=== PATIENT | female | born 1945 | race African-American/Black ===

== ENCOUNTER 2017-06-11 11:44 | Inpatient (IN) | payer MEDICARE, MEDICAID ==
[~2017-06-11] VITALS: Ht 162.6 cm; Wt 59.0 kg
[2017-06-11 12:15] VITALS: BP 110/71; PULSE 126; RESP 18; TEMP 98.6; O2SAT 95
[2017-06-11] MEDS ORDERED: PRED5TAB PO (12:31)
[2017-06-11] MEDS ORDERED: ZOFR4TAB PO (12:31)
[2017-06-11] MEDS ORDERED: FAMO1TAB37 PO (12:31)
[2017-06-11] MEDS ORDERED: PROM2INJ IM (12:31)
[2017-06-11] MEDS ORDERED: AMMO12CR4 TOP (12:31)
[2017-06-11] MEDS ORDERED: ASCO500T PO (12:31)
[2017-06-11] MEDS ORDERED: GLYC3350 PO (12:31)
[2017-06-11] MEDS ORDERED: SODIUM CHLORIDE 0.9% FLUSH 10 ML FLUSH IV FLUSH PRN ×2 (12:45→17:00)
[2017-06-11] MEDS ORDERED: SODIUM CHLOR 0.9% 1000 ML INJ 1,000 ML IV ONE (12:48)
[2017-06-11] MEDS ORDERED: SODIUM CHLOR 0.9% 1000 ML INJ 800 ML IV ONE (12:48)
[2017-06-11 14:28] VITALS: O2SAT 96
[2017-06-11 14:38] LABS: AUTOMATED NEUTROPHIL # 6.5 TH/MM3 (1.8-7.7); BASOPHIL % 0.3 % (0.0-2.0); EOSINOPHIL # 0.1 TH/MM3 (0-0.4); EOSINOPHIL % 0.9 % (0.0-4.0); HEMATOCRIT 37.2 % (35.0-46.0); HEMOGLOBIN 12.1 GM/DL (11.6-15.3); LYMPH % 6.8 % (9.0-44.0); LYMPHOCYTE # 0.5 TH/MM3 (1.0-4.8); MEAN CELL VOLUME 88.8 FL (80.0-100.0); MEAN CORPUSCULAR HEMOGLOBIN 28.8 PG (27.0-34.0); MEAN CORPUSCULAR HGB CONC 32.5 % (32.0-36.0); MEAN PLATELET VOLUME 8.7 FL (7.0-11.0); MONO % 11.5 % (0.0-8.0); MONOCYTE # 0.9 TH/MM3 (0-0.9); NEUT % 80.5 % (16.0-70.0); PLATELET COUNT 200 TH/MM3 (150-450); RED BLOOD COUNT 4.18 MIL/MM3 (4.00-5.30); RED CELL DISTRIBUTION WIDTH 16.6 % (11.6-17.2); WHITE BLOOD COUNT 8.1 TH/MM3 (4.0-11.0)
[2017-06-11 14:41] VITALS: BP 129/72; PULSE 70; RESP 16
[2017-06-11 14:47] LABS: ALBUMIN 2.7 GM/DL (3.4-5.0); AST (GOT) 34 U/L (15-37); BICARBONATE 17.3 MEQ/L (21.0-32.0); BLOOD UREA NITROGEN 94 MG/DL (7-18); CALCIUM 9.8 MG/DL (8.5-10.1); CHLORIDE 107 MEQ/L (98-107); CREATININE 6.01 MG/DL (0.50-1.00); GLOMERULAR FILTRATION RATE 8 ML/MIN (>89); GLUCOSE,RANDOM 91 MG/DL (74-106); SODIUM (NA) 137 MEQ/L (136-145)
[2017-06-11 14:50] LABS: ALKALINE PHOSPHATASE 68 U/L (45-117); ALT (GPT) 17 U/L (10-53); TOTAL BILIRUBIN ADULT 0.4 MG/DL (0.2-1.0); TOTAL PROTEIN 6.8 GM/DL (6.4-8.2); TROPONIN I 0.04 NG/ML (0.02-0.05)
--- NOTE | 2017-06-11 15:42 | PD ---
HPI Chief Complaint: GI Complaint Time Seen by Provider: 12:31 Travel History International Travel<30 days: No Contact w/Intl Traveler<30days: No Traveled to known affect area: No History of Present Illness HPI PER DAUGHTER PATIENT HAS HAD HISTORY OF DECREASED EATING AND DRINKING, APPARENTLY PER DAUGHTER PATIENT IS LESS ACTIVE, HER URINE WAS DARK YELLOW TO LIGHT BROWN AND DAUGHTER WAS CONCERNED. PFSH Past Medical History Anemia: Yes Arthritis: Yes (RA) High Cholesterol: Yes Hypertension: Yes Medical other: Yes (VITAMIN D DEF, UTIS, BREAST CA, CDIFF, ESBL RESISTANCE, GEN WEAKNESS) Tetanus Vaccination: Unknown Influenza Vaccination: No ?: Unknown Past Surgical History Other Surgery: Yes (LEFT MASTECTOMY) Social History Alcohol Use: No Tobacco Use: No Substance Use: No Allergies-Medications (Allergen,Severity, Reaction): Coded Allergies: iodine (Verified Allergy, Severe, 06/11/17) Reported Meds & Prescriptions Reported Meds & Active Scripts Active Reported Phenergan Inj (Promethazine HCl) 25 Mg/Ml Inj 25 Mg IM Q6H PRN Prednisone 5 Mg Tab 5 Mg PO DAILY Zofran (Ondansetron HCl) 4 Mg Tab 4 Mg PO Q8HR PRN Glycolax (Polyethylene Glycol 3350) 17 Gram/Dose Pow 17 Gm PO DAILY Pepcid (Famotidine) 20 Mg Tab 20 Mg PO BID Ascorbic Acid 500 Mg Tab 500 Mg PO DAILY Ammonium Lactate (Lactic Acid) 12 % Cre 1 Applic TOP BID APPLY TO: Review of Systems Except as stated in HPI: all other systems reviewed are Neg General / Constitutional: No: Fever Eyes: No: Visual changes HENT: No: Headaches Cardiovascular: Positive: Palpitations, Tachycardia (HYPOTENSIVE) Respiratory: No: Shortness of Breath Gastrointestinal: Positive: Nausea Genitourinary: No: Dysuria Musculoskeletal: No: Pain Skin: No Rash Neurologic: No: Weakness Psychiatric: No: Depression Endocrine: No: Polydipsia Hematologic/Lymphatic: No: Easy Bruising Physical Exam Narrative GENERAL: SKIN: Warm and dry. SKIN TENTING HEAD: Atraumatic. Normocephalic. EYES: Pupils equal and round. No scleral icterus. No injection or drainage. ENT: No nasal bleeding or discharge. Mucous membranes pink BUT DRY AND COTTON MOUTH NECK: Trachea midline. No JVD. CARDIOVASCULAR: TACHYCARDIC rate and REGULAR rhythm. RESPIRATORY: No accessory muscle use. Clear to auscultation. Breath sounds equal bilaterally. GASTROINTESTINAL: Abdomen soft, non-tender, nondistended. MUSCULOSKELETAL: Extremities without clubbing, cyanosis, or edema. No obvious deformities. NEUROLOGICAL: Awake and alert. No obvious cranial nerve deficits. Motor grossly within normal limits. 4 out of 5 muscle strength in the RIGHT arms and legs. EXCEPT LEFT SIDE CONTRACTED PSYCHIATRIC: Appropriate mood and affect; insight and judgment normal. Data Data Last Documented VS Vital Signs Date Time Temp Pulse Resp B/P (MAP) Pulse Ox O2 Delivery O2 Flow Rate FiO2 06/11/17 14:41 70 16 129/72 (91) Room Air 06/11/17 14:28 96 06/11/17 12:15 98.6 Orders Orders Equip, Isolation Cart (06/11/17 12:29) Complete Blood Count With Diff (06/11/17 12:31) Comprehensive Metabolic Panel (06/11/17 12:31) Lipase (06/11/17 12:31) Lactic Acid (06/11/17 12:31) Prothrombin Time / Inr (Pt) (06/11/17 12:31) Act Partial Throm Time (Ptt) (06/11/17 12:31) Urinalysis - C+S If Indicated (06/11/17 12:31) Iv Access Insert/Monitor (06/11/17 12:31) Ecg Monitoring (06/11/17 12:31) Oximetry (06/11/17 12:31) NPO (06/11/17 12:31) Sodium Chloride 0.9% Flush (Ns Flush) (06/11/17 12:45) Electrocardiogram (06/11/17 12:31) Troponin I (06/11/17 12:31) Blood Culture (06/11/17 12:31) Sodium Chlor 0.9% 1000 Ml Inj (Ns 1000 M (06/11/17 12:48) Sodium Chlor 0.9% 1000 Ml Inj (Ns 1000 M (06/11/17 12:48) Admit To Inpatient (06/11/17 ) Vital Signs (Adult) Q4H (06/11/17 16:47) Activity Oob With Assistance (06/11/17 16:47) Sodium Chlor 0.9% 1000 Ml Inj (Ns 1000 M (06/11/17 16:47) Sodium Chloride 0.9% Flush (Ns Flush) (06/11/17 17:00) Sodium Chloride 0.9% Flush (Ns Flush) (06/11/17 21:00) Basic Metabolic Panel (Bmp) (06/12/17 06:00) Comprehensive Metabolic Panel (06/12/17 06:00) Pt Request For Service (06/11/17 16:47) Speech Therapy Consult-Eval/Tx (06/11/17 16:47) Case Management Consult (06/11/17 16:47) Naloxone Inj (Narcan Inj) (06/11/17 17:00) Magnesium Hydroxide Liq (Milk Of Magnesi (06/11/17 17:00) Sennosides (Senokot) (06/11/17 17:00) Bisacodyl Supp (Dulcolax Supp) (06/11/17 17:00) Lactulose Liq (Lactulose Liq) (06/11/17 17:00) Sodium, Random Urine (06/11/17 16:47) Creatinine, Random Urine (06/11/17 16:47) Specimen To Be Collected PRN (06/11/17 16:47) Us Kidney/Renal/Bladder (06/11/17 ) Bladder Scan PRN (06/11/17 16:47) Inpatient Certification (06/11/17 ) Consult Nephrology (06/11/17 ) Labs Laboratory Tests Test 06/11/17 14:10 White Blood Count 8.1 TH/MM3 Red Blood Count 4.18 MIL/MM3 Hemoglobin 12.1 GM/DL Hematocrit 37.2 % Mean Corpuscular Volume 88.8 FL Mean Corpuscular Hemoglobin 28.8 PG Mean Corpuscular Hemoglobin Concent 32.5 % Red Cell Distribution Width 16.6 % Platelet Count 200 TH/MM3 Mean Platelet Volume 8.7 FL Neutrophils (%) (Auto) 80.5 % Lymphocytes (%) (Auto) 6.8 % Monocytes (%) (Auto) 11.5 % Eosinophils (%) (Auto) 0.9 % Basophils (%) (Auto) 0.3 % Neutrophils # (Auto) 6.5 TH/MM3 Lymphocytes # (Auto) 0.5 TH/MM3 Monocytes # (Auto) 0.9 TH/MM3 Eosinophils # (Auto) 0.1 TH/MM3 Basophils # (Auto) 0.0 TH/MM3 CBC Comment AUTO DIFF Differential Comment AUTO DIFF CONFIRMED Platelet Estimate NORMAL Platelet Morphology Comment NORMAL Ovalocytes 1+ Blood Urea Nitrogen 94 MG/DL Creatinine 6.01 MG/DL Random Glucose 91 MG/DL Total Protein 6.8 GM/DL Albumin 2.7 GM/DL Calcium Level 9.8 MG/DL Alkaline Phosphatase 68 U/L Aspartate Amino Transf (AST/SGOT) 34 U/L Alanine Aminotransferase (ALT/SGPT) 17 U/L Total Bilirubin 0.4 MG/DL Sodium Level 137 MEQ/L Potassium Level 5.0 MEQ/L Chloride Level 107 MEQ/L Carbon Dioxide Level 17.3 MEQ/L Anion Gap 13 MEQ/L Estimat Glomerular Filtration Rate 8 ML/MIN Lactic Acid Level 1.3 mmol/L Troponin I 0.04 NG/ML Lipase 152 U/L 25-Hydroxy Vitamin D Total 37.3 ng/ML MDM Medical Decision Making Medical Screen Exam Complete: Yes Emergency Medical Condition: Yes Medical Record Reviewed: Yes Differential Diagnosis SEPSIS V UTI V PNA V DEHYDRATION Narrative Course no e/o sbo/ileus/or bibasilar infiltrates on abd series, acute worsening of renal function, also e/o dehydration...and hypokalemia....pt will be admitted for further eval and care Critical Care Narrative CRITICAL CARE NOTE: With evaluation of the patient, labs, EKG, receipt of radiologic studies, administration of medications, reevaluation the patient and discussion of the patient with the admitting physicians, the total critical care time was [45] minutes. Time to perform other separately billable procedures was not included in the critical care time. Diagnosis Primary Impression: ACUTE ON CHRONIC KIDNEY DISEASE Additional Impression: Dehydration, severe Jeet Sheehan MD Jun 11, 2017 15:42
[2017-06-11 15:44] LABS: OVALOCYTES 1+ (NORMAL)
[2017-06-11] MEDS ORDERED: SODIUM CHLOR 0.9% 1000 ML INJ 1,000 ML IV SCH (16:47)
[2017-06-11] MEDS ORDERED: MAGNESIUM HYDROXIDE SUSP 30 ML CUP PO PRN (17:00)
[2017-06-11] MEDS ORDERED: BISACODYL 10 MG SUPP RECTAL PRN (17:00)
[2017-06-11] MEDS ORDERED: HYDROCORTISONE SOD SUCCINATE 100 MG VIAL IV PUSH ONE (17:00)
[2017-06-11] MEDS ORDERED: SENNOSIDES 8.6 MG TAB PO PRN (17:00)
[2017-06-11] MEDS ORDERED: NALOXONE HCL 0.4 MG/ML AMP IV PUSH PRN (17:00)
[2017-06-11] MEDS ORDERED: LACTULOSE SYRUP 20 GM/30 ML CUP PO PRN (17:00)
--- NOTE | 2017-06-11 17:39 | RADRPT ---
EXAM DATE/TIME: 06/11/2017 17:12 [facility] COMPARISON: No previous studies available for comparison. INDICATIONS : Nausea. MEDICAL HISTORY : Hypercholesterolemia. Hypertension Carcinoma, breast. SURGICAL HISTORY : Mastectomy, left. ENCOUNTER: Initial ACUITY: 3 days PAIN SCORE: 0/10 LOCATION: Bilateral abdomen FINDINGS: A single erect view of the abdomen demonstrates limited visualization with no obvious obstruction or pneumoperitoneum. Osseous structures are grossly intact. Lung bases are clear CONCLUSION: Limited examination with no obvious obstruction or pneumoperitoneum. Lung bases are clear. Eduardo Rosas MD on June 11, 2017 at 17:36 Board Certified Radiologist. This report was verified electronically.
[2017-06-11] MEDS: CHOLECALCIFEROL (VIT D3) 5000 UNIT CAP PO ONE ×2 (18:00→19:38)
[2017-06-11] MEDS ORDERED: ONDANSETRON HCL 4 MG/2 ML VIAL IV PUSH PRN (18:00)
--- NOTE | 2017-06-11 18:05 | PD.CONS ---
HPI Consult Requested By Reason for Consult Acute renal failure. Chronic kidney disease? Primary Care Physician Stefano Gaona MD History of Present Illness This patient is a 72-year-old female apparently with a history of severe chronic rheumatoid arthritis, hypertension and osteoarthritis. According to the family she has been chronic debilitated in the past but able to get around in a wheelchair. Debilitation related to severe chronic rheumatoid arthritis. More recently a few months ago it appears that she was started on Xeljanz prior to Thanksgiving subsequently developed diarrhea, abnormal liver tests and according to the family renal insufficiency. She was subsequently admitted to [facility] and diagnosis having clostridium difficile. Those records are not available to me currently. She was subsequently discharged to a alf and more recently there has been a recurrence of diarrhea as well as nausea and vomiting. Records from the alf indicated a creatinine level of 3.0 with a BUN of 36 June 03, 2017. Outpatient medications prior to admission included prednisone 5 mg daily but no indication that she was on an NSAID for analgesia. According to the family they noted that her urine was turning dark brown and they had her brought to the hospital for further evaluation. On presentation her creatinine level noted to be 6.01 with a total CO2 on BMP of 17.3. Patient's family also gives a history of poor appetite with progressive weight loss these last several weeks. It appears that she was started on an appetite stimulant which may have been out all but this cannot be confirmed presently. They also mentioned that she has a "sore" on her buttock. Review of Systems ROS Limitations: Clinical Condition Constitutional: COMPLAINS OF: Fatigue, Weight loss Musculoskeletal: COMPLAINS OF: Joint pain, Stiffness, Back pain Past Family Social History Allergies: Coded Allergies: iodine (Verified Allergy, Severe, 06/11/17) Past Medical History Severe rheumatoid arthritis Hypertension Chronic debilitation worsening recently. Weight loss. Mention of renal insufficiency in the last few weeks confirmed by creatinine level more recently 3.0 June 03, 2017. Reported Medications Reported Meds & Active Scripts Active Reported Phenergan Inj (Promethazine HCl) 25 Mg/Ml Inj 25 Mg IM Q6H PRN Prednisone 5 Mg Tab 5 Mg PO DAILY Zofran (Ondansetron HCl) 4 Mg Tab 4 Mg PO Q8HR PRN Glycolax (Polyethylene Glycol 3350) 17 Gram/Dose Pow 17 Gm PO DAILY Pepcid (Famotidine) 20 Mg Tab 20 Mg PO BID Ascorbic Acid 500 Mg Tab 500 Mg PO DAILY Ammonium Lactate (Lactic Acid) 12 % Cre 1 Applic TOP BID APPLY TO: Active Ordered Medications Current Medications Sodium Chloride (NS Flush) 2 ml UNSCH PRN IV FLUSH FLUSH AFTER USING IV ACCESS ; Start 06/11/17 at 12:45 Sodium Chloride 1,000 ml @ 1,000 mls/hr Q1H ONCE IV Last administered on at 14:37; Start 06/11/17 at 12:48; Stop 06/11/17 at 13:47; Status DC Sodium Chloride 800 ml @ 1,000 mls/hr Q48M ONCE IV Last administered on at 14:38; Start 06/11/17 at 12:48; Stop 06/11/17 at 13:35; Status DC Sodium Chloride 1,000 ml @ 100 mls/hr Q10H IV ; Start 06/11/17 at 16:47; Stop 06/11/17 at 17:45; Status DC Sodium Chloride (NS Flush) 2 ml UNSCH PRN IV FLUSH FLUSH AFTER USING IV ACCESS ; Start 06/11/17 at 17:00 Sodium Chloride (NS Flush) 2 ml BID IV FLUSH ; Start 06/11/17 at 21:00 Naloxone HCl (Narcan Inj) 0.4 mg UNSCH PRN IV PUSH SEE LABEL COMMENTS; Start at 17:00 Magnesium Hydroxide (Milk Of Magnesia Liq) 30 ml Q12H PRN PO Mild constipation ; Start 06/11/17 at 17:00 Sennosides (Senokot) 17.2 mg Q12H PRN PO Moderate constipation; Start 06/11/17 at 17:00 Bisacodyl (Dulcolax Supp) 10 mg DAILY PRN RECTAL SEVERE CONSITIPATION; Start at 17:00 Lactulose (Lactulose Liq) 30 ml DAILY PRN PO SEVERE CONSITIPATION; Start at 17:00 Hydrocortisone Sodium Succinate (SoluCORTEF INJ) 50 mg ONCE ONCE IV PUSH ; Start 06/11/17 at 17:00; Stop 06/11/17 at 17:02; Status DC Prednisone (Deltasone) 10 mg DAILY PO ; Start 06/12/17 at 09:00 Sodium Bicarbonate 75 meq/Sodium Chloride 1,075 ml @ 100 mls/hr [id number] IV ; Start 06/11/17 at 17:45; Status UNV Family History Hypertension. Social History No history of illicit drug use. Physical Exam Vital Signs Vital Signs Date Time Temp Pulse Resp B/P (MAP) Pulse Ox O2 Delivery O2 Flow Rate FiO2 06/11/17 14:41 70 16 129/72 (91) Room Air 06/11/17 14:28 96 Room Air 06/11/17 12:15 98.6 126 18 110/71 (84) 95 Physical Exam GENERAL: Patient appears to be somewhat emaciated and older than her stated age with evidence of muscular wastage all limbs.: Ulnar deviation of the fingers. SKIN: Warm and dry. Skin turgor is diminished. HEAD: Normocephalic. Mucous membranes dry. EYES: No scleral icterus. No injection or drainage. NECK: Supple, trachea midline. No JVD . CARDIOVASCULAR: Regular rate and rhythm without murmurs, gallops, or rubs. RESPIRATORY: Breath sounds equal bilaterally. No accessory muscle use. GASTROINTESTINAL: Abdomen soft, non-tender, nondistended. MUSCULOSKELETAL: No cyanosis, or edema. Diffuse muscular wastage. Laboratory Laboratory Tests Test 06/11/17 14:10 White Blood Count 8.1 Red Blood Count 4.18 Hemoglobin 12.1 Hematocrit 37.2 Mean Corpuscular Volume 88.8 Mean Corpuscular Hemoglobin 28.8 Mean Corpuscular Hemoglobin Concent 32.5 Red Cell Distribution Width 16.6 Platelet Count 200 Mean Platelet Volume 8.7 Neutrophils (%) (Auto) 80.5 Lymphocytes (%) (Auto) 6.8 Monocytes (%) (Auto) 11.5 Eosinophils (%) (Auto) 0.9 Basophils (%) (Auto) 0.3 Neutrophils # (Auto) 6.5 Lymphocytes # (Auto) 0.5 Monocytes # (Auto) 0.9 Eosinophils # (Auto) 0.1 Basophils # (Auto) 0.0 CBC Comment AUTO DIFF Differential Comment AUTO DIFF CONFIRMED Platelet Estimate NORMAL Platelet Morphology Comment NORMAL Ovalocytes 1+ Blood Urea Nitrogen 94 Creatinine 6.01 Random Glucose 91 Total Protein 6.8 Albumin 2.7 Calcium Level 9.8 Alkaline Phosphatase 68 Aspartate Amino Transf (AST/SGOT) 34 Alanine Aminotransferase (ALT/SGPT) 17 Total Bilirubin 0.4 Sodium Level 137 Potassium Level 5.0 Chloride Level 107 Carbon Dioxide Level 17.3 Anion Gap 13 Estimat Glomerular Filtration Rate 8 Lactic Acid Level 1.3 Troponin I 0.04 Lipase 152 Date/Time Source Procedure Growth Status 06/11/17 14:10 Blood Peripheral Aerobic Blood Culture Pending Received 06/11/17 14:10 Blood Peripheral Anaerobic Blood Culture Pending Received Result Diagram: 06/11/17 1410 06/11/17 1410 Imaging Last 48 hours Impressions Abdomen X-Ray 06/11/17 0000 Signed Impressions: Service Date/Time: Sunday, June 11, 2017 17:12 - CONCLUSION: Limited examination with no obvious obstruction or pneumoperitoneum. Lung bases are clear. Eduardo Rosas MD Assessment and Plan Problem List: (1) Acute kidney insufficiency ICD Codes: N28.9 - Disorder of kidney and ureter, unspecified Status: Acute Plan: Most likely secondary to intravascular volume depletion and possible superimposed sepsis. Except for the creatinine level noted on June 03, 2017 I have no previous laboratory indices available so uncertain if this patient could have underlying CKD also despite a negative history. Agree with hydration at this point in time. We'll add sodium bicarbonate to IV fluids as she does appear to have some degree of metabolic acidosis most likely related to her severe renal insufficiency. The may also be a contraction alkalosis and with hydration her bicarbonate level would likely fall further. Agree with renal ultrasound. Also check serum complement levels. Urinalysis. Further evaluation as indicated. I discussed with the patient's daughters to severity of their mother is renal insufficiency and overall condition. Remains be determined whether not patient' s renal function will improve with hydration as her azotemia may worsen if she has developed a significant ATN. I also advised them that if there is no improvement in the renal indices and or worsening we may have to consider dialytic support in the next 24-48 hours. Hopefully there will be improvement however. Patient has evidence of significant chronic debilitation with superimposed acute disease. Prognosis is guarded. Medications should be adjusted for the patient's estimated GFR if clinically indicated. Avoid agents with significant potential for nephrotoxicity possible including NSAIDs for analgesia, iodine contrast agents. Gadolinium is contraindicated if the GFR is below 30. 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 (4) Rheumatoid arthritis ICD Codes: M06.9 - Rheumatoid arthritis, unspecified Status: Chronic Carmelo Yuan MD Jun 11, 2017 18:05
--- NOTE | 2017-06-11 18:18 | HHI.HP ---
[facility] Stefano Gaona MD Admission Diagnosis ACUTE RENAL FAILURE/SEVERE DEHYDRATION Diagnoses: Chief Complaint: Nausea, vomiting, decreased appetite Travel History International Travel<30 Days: No Contact w/Intl Traveler <30 Da: No Traveled to Known Affected Are: No History of Present Illness 72-year-old female with history of her heart arthritis, hypertension, who presents with gradually worsening nausea, nonbloody vomiting over the past few weeks. Unspecified weight loss over the past few weeks, with progression of weakness to where she cannot even stand up. Family also notes that urine has become dark swelling. She has been tried on what sounds to be Marinol without improvement in appetite. Recently completed treatment for C. difficile diarrhea which resolved, however no bowel movements in the past 2 weeks. Review of Systems Patient unable to answer most questions due to weakness Past Family Social History Past Medical History Chronic rheumatoid arthritis Chronic dilatation C. difficile colitis successfully treated Vitamin D deficiency recently diagnosed on outside labs History of UTIs in the past. History of chronic anemia Past Surgical History left mastectomy without radiation or chemotherapy Reported Medications Reported Meds & Active Scripts Active Reported Phenergan Inj (Promethazine HCl) 25 Mg/Ml Inj 25 Mg IM Q6H PRN Prednisone 5 Mg Tab 5 Mg PO DAILY Zofran (Ondansetron HCl) 4 Mg Tab 4 Mg PO Q8HR PRN Glycolax (Polyethylene Glycol 3350) 17 Gram/Dose Pow 17 Gm PO DAILY Pepcid (Famotidine) 20 Mg Tab 20 Mg PO BID Ascorbic Acid 500 Mg Tab 500 Mg PO DAILY Ammonium Lactate (Lactic Acid) 12 % Cre 1 Applic TOP BID Allergies: Coded Allergies: iodine (Verified Allergy, Severe, 06/11/17) Family History family history reviewed, and found to be currently noncontributory. Social History Nonsmoker. Nondrinker. No history of illicit drug use. Physical Exam Vital Signs Vital Signs Date Time Temp Pulse Resp B/P (MAP) Pulse Ox O2 Delivery O2 Flow Rate FiO2 06/11/17 14:41 70 16 129/72 (91) Room Air 06/11/17 14:28 96 Room Air 06/11/17 12:15 98.6 126 18 110/71 (84) 95 Physical Exam GENERAL: Cachectic female who appears greater than stated age. Voice is very soft, almost imperceptible. She answers that she is not in pain SKIN: No rashes, ecchymoses or lesions. Cool and dry. HEAD: Atraumatic. Normocephalic. No temporal or scalp tenderness. EYES: Pupils equal round and reactive. Extraocular motions intact. No scleral icterus. No injection or drainage. ENT: Nose without bleeding, purulent drainage or septal hematoma. Throat without erythema, tonsillar hypertrophy or exudate. Uvula midline. Airway patent. NECK: Trachea midline. No JVD or lymphadenopathy. Supple, nontender, no meningeal signs. CARDIOVASCULAR: Regular rate and rhythm without murmurs, gallops, or rubs. RESPIRATORY: Clear to auscultation. Breath sounds equal bilaterally. No wheezes , rales, or rhonchi. GASTROINTESTINAL: Abdomen soft, non-tender, nondistended. No hepato-splenomegaly , or palpable masses. No guarding. MUSCULOSKELETAL: Extremities without clubbing, cyanosis, or edema. No joint tenderness, effusion, or edema noted. No calf tenderness. Negative Homans sign bilaterally. NEUROLOGICAL: Awake and alert. Cranial nerves II through XII intact. Motor and sensory grossly within normal limits. 3 out of 5 muscle strength in right extremities, with weakness on the left side. Normal speech. Laboratory Laboratory Tests Test 06/11/17 14:10 White Blood Count 8.1 Red Blood Count 4.18 Hemoglobin 12.1 Hematocrit 37.2 Mean Corpuscular Volume 88.8 Mean Corpuscular Hemoglobin 28.8 Mean Corpuscular Hemoglobin Concent 32.5 Red Cell Distribution Width 16.6 Platelet Count 200 Mean Platelet Volume 8.7 Neutrophils (%) (Auto) 80.5 Lymphocytes (%) (Auto) 6.8 Monocytes (%) (Auto) 11.5 Eosinophils (%) (Auto) 0.9 Basophils (%) (Auto) 0.3 Neutrophils # (Auto) 6.5 Lymphocytes # (Auto) 0.5 Monocytes # (Auto) 0.9 Eosinophils # (Auto) 0.1 Basophils # (Auto) 0.0 CBC Comment AUTO DIFF Differential Comment AUTO DIFF CONFIRMED Platelet Estimate NORMAL Platelet Morphology Comment NORMAL Ovalocytes 1+ Blood Urea Nitrogen 94 Creatinine 6.01 Random Glucose 91 Total Protein 6.8 Albumin 2.7 Calcium Level 9.8 Alkaline Phosphatase 68 Aspartate Amino Transf (AST/SGOT) 34 Alanine Aminotransferase (ALT/SGPT) 17 Total Bilirubin 0.4 Sodium Level 137 Potassium Level 5.0 Chloride Level 107 Carbon Dioxide Level 17.3 Anion Gap 13 Estimat Glomerular Filtration Rate 8 Lactic Acid Level 1.3 Troponin I 0.04 Lipase 152 Date/Time Source Procedure Growth Status 06/11/17 14:10 Blood Peripheral Aerobic Blood Culture Pending Received 06/11/17 14:10 Blood Peripheral Anaerobic Blood Culture Pending Received Result Diagram: 06/11/17 1410 06/11/17 1410 Caprini VTE Risk Assessment Caprini VTE Risk Assessment: Mod/High Risk (score >= 2) Caprini Risk Assessment Model Point Value = 1 Point Value = 2 Point Value = 3 Point Value = 5 Age 41-60 Minor surgery BMI > 25 kg/m2 Swollen legs Varicose veins or History of unexplained or recurrent spontaneous Oral contraceptives or hormone replacement Sepsis (< 1 month) Serious lung disease, including pneumonia (< 1 month) Abnormal pulmonary function Acute myocardial infarction Congestive heart failure (< 1 month) History of inflammatory bowel disease Medical patient at bed rest Age 61-74 Arthroscopic surgery Major open surgery (> 45 min) Laparoscopic surgery (> 45 min) Malignancy Confined to bed (> 72 hours) Immobilizing plaster cast Central venous access Age >= 75 History of VTE Family history of VTE Factor V Leiden Prothrombin [id number] Lupus anticoagulant Anticardiolipin antibodies Elevated serum homocysteine Heparin-induced thrombocytopenia Other congenital or acquired thrombophilia Stroke (< 1 month) Elective arthroplasty Hip, pelvis, or leg fracture Acute spinal cord injury (< 1 month) Prophylaxis Regimen Total Risk Factor Score Risk Level Prophylaxis Regimen 0-1 Low Early ambulation 2 Moderate Order ONE of the following: *Sequential Compression Device (SCD) *Heparin 5000 units SQ BID 3-4 Higher Order ONE of the following medications: *Heparin 5000 units SQ TID *Enoxaparin/Lovenox 40 mg SQ daily (WT < 150 kg, CrCl > 30 mL/min) *Enoxaparin/Lovenox 30 mg SQ daily (WT < 150 kg, CrCl > 10-29 mL/min) *Enoxaparin/Lovenox 30 mg SQ BID (WT < 150 kg, CrCl > 30 mL/min) AND/OR *Sequential Compression Device (SCD) 5 or more Highest Order ONE of the following medications: *Heparin 5000 units SQ TID (Preferred with Epidurals) *Enoxaparin/Lovenox 40 mg SQ daily (WT < 150 kg, CrCl > 30 mL/min) *Enoxaparin/Lovenox 30 mg SQ daily (WT < 150 kg, CrCl > 10-29 mL/min) *Enoxaparin/Lovenox 30 mg SQ BID (WT < 150 kg, CrCl > 30 mL/min) AND *Sequential Compression Device (SCD) Assessment and Plan Assessment and Plan //Acute kidney injury //Uremia -Creatinine 6.0. Previously 3.0 on 06/03. Sleep worsening, likely secondary to decreased by mouth intake. -Renal ultrasound, labs ordered and pending. -Aggressive IV fluid //Nausea and vomiting. -This could be secondary to uremia. No sign of constipation on AP abdominal film. No abdominal pain. -Zofran as needed. Expect to Improve with uremia. //Dehydration //Failure to thrive. -Multifactorial. Could be secondary to uremia, as well as adrenal insufficiency. -Aggressive IV fluid hydration. Treatment for acute kidney injury below. //Left-sided contractures. Family deny any history of stroke, however report contractors have been there since she arrived to [facility]. -limited OSH records do not mention stroke. We'll order CT head //Sacral ulcer. -stage II. Consult wound care nurse. //Recent C. difficile colitis. = Having completed treatment -Family reports no bowel movements for the past 2 weeks. Abdomen nontender. -C. difficile ordered and pending //Suspected adrenal insufficiency. -Milligrams of adrenal insufficiency would be nausea, vomiting, abdominal pain. Patient with nausea, vomiting, no abdominal pain. -Patient on chronic prednisone 5 mg daily. -We'll order stress dose steroids here. //Vitamin D deficiency. 1, 25 dihydroxy vitamin D on 06/03 and found to be undetectable at outside facility. We'll order labs for 25 drugs she vitamin D, and start on vitamin D3. Expect nephrology to start on calcitriol. Discussed Condition With Patient, nurse, ED physician, family at bedside Physician Certification 2 Midnight Certification Type: Admission for Inpatient Services Order for Inpatient Services The services are ordered in accordance with Medicare regulations or non- Medicare payer requirements, as applicable. In the case of services not specified as inpatient-only, they are appropriately provided as inpatient services in accordance with the 2-midnight benchmark. Estimated LOS (days): 3 days is the estimated time the patient will need to remain in the hospital, assuming treatment plan goals are met and no additional complications. Post-Hospital Plan: Not yet determined Stefano Rojas MD Jun 11, 2017 18:18
--- NOTE | 2017-06-11 18:48 | RADRPT ---
EXAM DATE/TIME: 06/11/2017 17:30 [facility] COMPARISON: No previous studies available for comparison. INDICATIONS : Increased BUN/Creatnine. MEDICAL HISTORY : Hypercholesterolemia. Hypertension. Carcinoma, breast. Arthritis. Anemia. Urinary tract infection. C- Diff. SURGICAL HISTORY : Mastectomy, left. ENCOUNTER: Initial ACUITY: 1 month PAIN SCORE: 5/10 LOCATION: Bilateral flank MEASUREMENTS: RIGHT KIDNEY: 9.5 x 3.2 x 3.7 cm LEFT KIDNEY: 9.5 x 2.9 x 4.5 cm FINDINGS: Small renal calcifications and increased echogenicity. No hydronephrosis. No perinephric fluid. Bladd er unremarkable. CONCLUSION: 1. Mild echogenic kidneys characteristic of medical renal disease. Small renal calcifications. Delonte Gonzalez MD on June 11, 2017 at 18:44 Board Certified Radiologist. This report was verified electronically.
[2017-06-11 19:40] LABS: AMORPHOUS SEDIMENT, URINE RARE; BACTERIA, URINE RARE /hpf; BILIRUBIN, URINE SMALL (NEG); BLOOD, URINE NEG (NEG); GLUCOSE,URINE NEG (NEG); HYALINE CAST, URINE 4 /lpf (RARE); KETONE, URINE NEG (NEG); NITRITE,URINE NEG (NEG); URINE LEUKOCYTE ESTERASE NEG (NEG)
[2017-06-11 19:41] LABS: URINE COLOR AMBER (YELLW/STRAW)
[2017-06-11 20:00] VITALS: BP 115/57; PULSE 117; RESP 20; TEMP 97.7; O2SAT 99
[2017-06-11] MEDS: SODIUM CHLORIDE 0.9% FLUSH 10 ML FLUSH IV FLUSH SCH (21:00)
--- NOTE | 2017-06-11 21:11 | RADRPT ---
EXAM DATE/TIME: 06/11/2017 20:44 [facility] COMPARISON: No previous studies available for comparison. INDICATIONS : Numbness. RADIATION DOSE: 45.55 CTDIvol (mGy) MEDICAL HISTORY : Hypertension. Carcinoma, breast. SURGICAL HISTORY : None. ENCOUNTER: Initial ACUITY: 1 day PAIN SCALE: 0/10 LOCATION: cranial TECHNIQUE: Multiple contiguous axial images were obtained of the head. Using automated exposure control and adj ustment of the mA and/or kV according to patient size, radiation dose was kept as low as reasonably a chievable to obtain optimal diagnostic quality images. DICOM format image data is available electro nically for review and comparison. FINDINGS: CEREBRUM: The ventricles are normal for age. No evidence of midline shift, mass lesion, hemorrhage or acute in farction. No extra-axial fluid collections are seen. POSTERIOR FOSSA: The cerebellum and brainstem are intact. The 4th ventricle is midline. The cerebellopontine angle i s unremarkable. EXTRACRANIAL: The visualized portion of the orbits is intact. SKULL: The calvaria is intact. No evidence of skull fracture. CONCLUSION: 1. No acute intracranial abnormalities. Delonte Gonzalez MD on June 11, 2017 at 21:06 Board Certified Radiologist. This report was verified electronically.
[2017-06-11] MEDS: SODIUM BICARBONATE 8.4% INJ 75 MEQ in SODIUM CHLOR 0.45% 1000 ML INJ 1,000 ML IV SCH (21:38)
[2017-06-11] MEDS: HEPARIN SODIUM - SQ 10,000 UNITS/ML VIAL SQ SCH (21:39)
[2017-06-11 22:43] LABS: INTERNATIONAL NORMALIZED RATIO 1.1 RATIO; PROTHROMBIN TIME - PATIENT 11.6 SEC (9.8-11.6)
[2017-06-11 23:09] LABS: CREATININE, RANDOM URINE 180.6 MG/DL
[2017-06-12 00:12] VITALS: BP 107/65; PULSE 112; RESP 20; TEMP 98.8; O2SAT 99
[2017-06-12] MEDS: SODIUM BICARBONATE 8.4% INJ 75 MEQ in SODIUM CHLOR 0.45% 1000 ML INJ 1,000 ML IV SCH (04:30)
[2017-06-12 08:00] VITALS: BP 116/76; PULSE 109; RESP 17; TEMP 97.3; O2SAT 92
[2017-06-12] MEDS: predniSONE 10 MG TAB PO SCH (08:10)
[2017-06-12] MEDS: CHOLECALCIFEROL (VIT D3) 5000 UNIT CAP PO SCH (08:10)
[2017-06-12] MEDS: SODIUM CHLORIDE 0.9% FLUSH 10 ML FLUSH IV FLUSH SCH ×2 (08:11→19:46)
[2017-06-12] MEDS: HEPARIN SODIUM - SQ 10,000 UNITS/ML VIAL SQ SCH ×2 (08:11→19:47)
[2017-06-12 09:52] LABS: ALKALINE PHOSPHATASE 49 U/L (45-117); ALT (GPT) 12 U/L (10-53); AST (GOT) 22 U/L (15-37); BICARBONATE 18.6 MEQ/L (21.0-32.0); BLOOD UREA NITROGEN 72 MG/DL (7-18); CHLORIDE 114 MEQ/L (98-107); CREATININE 3.71 MG/DL (0.50-1.00); GLOMERULAR FILTRATION RATE 15 ML/MIN (>89); GLUCOSE,RANDOM 56 MG/DL (74-106); SODIUM (NA) 146 MEQ/L (136-145); TOTAL BILIRUBIN ADULT 0.3 MG/DL (0.2-1.0)
[2017-06-12 10:02] LABS: COMPLEMENT C3 66 MG/DL (90-180); COMPLEMENT C4 25 MG/DL (10-40)
--- NOTE | 2017-06-12 11:21 | HHI.NPPN ---
Subjective History of Present Illness This patient is a 72-year-old female apparently with a history of severe chronic rheumatoid arthritis, hypertension and osteoarthritis. According to the family she has been chronic debilitated in the past but able to get around in a wheelchair. Debilitation related to severe chronic rheumatoid arthritis. More recently a few months ago it appears that she was started on Xeljanz prior to Thanksgiving subsequently developed diarrhea, abnormal liver tests and according to the family renal insufficiency. She was subsequently admitted to [facility] and diagnosis having clostridium difficile. Those records are not available to me currently. She was subsequently discharged to a retirement and more recently there has been a recurrence of diarrhea as well as nausea and vomiting. Records from the retirement indicated a creatinine level of 3.0 with a BUN of 36 June 03, 2017. Outpatient medications prior to admission included prednisone 5 mg daily but no indication that she was on an NSAID for analgesia. According to the family they noted that her urine was turning dark brown and they had her brought to the hospital for further evaluation. On presentation her creatinine level noted to be 6.01 with a total CO2 on BMP of 17.3. Patient's family also gives a history of poor appetite with progressive weight loss these last several weeks. It appears that she was started on an appetite stimulant which may have been out all but this cannot be confirmed presently. They also mentioned that she has a "sore" on her buttock. Interval History No family present. Opens eyes, but makes no meaningful conversation. (Marichuy Jorge) Review of Systems General General Remarks Unable to obtain (Marichuy Jorge) Objective Data Data Vital Signs Date Time Temp Pulse Resp B/P (MAP) Pulse Ox O2 Delivery O2 Flow Rate FiO2 06/12/17 08:00 97.3 109 17 116/76 (89) 92 06/12/17 00:12 98.8 112 20 107/65 (79) 99 06/11/17 20:00 97.7 117 20 115/57 (76) 99 06/11/17 14:41 70 16 129/72 (91) Room Air 06/11/17 14:28 96 Room Air 06/11/17 12:15 98.6 126 18 110/71 (84) 95 (Marichuy Jorge) -: 06/11/17 1410 06/12/17 0655 Microbiology 06/11/17 Aerobic Blood Culture - Preliminary, Resulted NO GROWTH IN 1 DAY 06/11/17 Anaerobic Blood Culture - Preliminary, Resulted NO GROWTH IN 1 DAY 06/11/17 Aerobic Blood Culture - Preliminary, Resulted NO GROWTH IN 1 DAY 06/11/17 Anaerobic Blood Culture - Preliminary, Resulted NO GROWTH IN 1 DAY Imaging Last Impressions Renal Ultrasound 06/11/17 0000 Signed Impressions: Service Date/Time: Sunday, June 11, 2017 17:30 - CONCLUSION: 1. Mild echogenic kidneys characteristic of medical renal disease. Small renal calcifications. Delonte Gonzalez MD Head CT 06/11/17 0000 Signed Impressions: Service Date/Time: Sunday, June 11, 2017 20:44 - CONCLUSION: 1. No acute intracranial abnormalities. Delonte Gonzalez MD Abdomen X-Ray 06/11/17 0000 Signed Impressions: Service Date/Time: Sunday, June 11, 2017 17:12 - CONCLUSION: Limited examination with no obvious obstruction or pneumoperitoneum. Lung bases are clear. Eduardo Rosas MD Medication Review Current Medications Medications (Trade) Dose Ordered Sig/Melinda Route Start Time Stop Time Status Last Admin (NS Flush) 2 ml UNSCH PRN IV FLUSH 06/11/17 12:45 (NS Flush) 2 ml UNSCH PRN IV FLUSH 06/11/17 17:00 (NS Flush) 2 ml BID IV FLUSH 06/11/17 21:00 06/11/17 21:00 (Narcan Inj) 0.4 mg UNSCH PRN IV PUSH 06/11/17 17:00 (Milk Of Magnesia Liq) 30 ml Q12H PRN PO 06/11/17 17:00 (Senokot) 17.2 mg Q12H PRN PO 06/11/17 17:00 (Dulcolax Supp) 10 mg DAILY PRN RECTAL 06/11/17 17:00 (Lactulose Liq) 30 ml DAILY PRN PO 06/11/17 17:00 (Deltasone) 10 mg DAILY PO 06/12/17 09:00 06/12/17 08:10 Sodium Bicarbonate 75 meq/Sodium Chloride 1,075 ml @ 100 mls/hr [id number] IV 06/11/17 17:45 06/11/17 21:38 (Vitamin D3) 5,000 units DAILY PO 06/12/17 09:00 06/12/17 08:10 (Zofran Inj) 4 mg Q6HR PRN IV PUSH 06/11/17 18:00 (Heparin Inj) 5,000 units Q12HR SQ 06/11/17 21:00 06/12/17 08:11 (Marichuy Jorge) Physical Exam General Appearance: Sleeping, Malnourished (Marichuy Jorge) Neck Neck Exam: Neck Supple, Trachea Midline (Marichuy Jorge) Pulmonary Resp Exam: Clear Bilaterally, Breath Sounds Equal (Marichuy Jorge) Cardiology CV Exam: Regular, Normal Sinus Rhythm (Marichuy Jorge) Gastrointestinal/Abdomen GI Exam: Soft (Marichuy Jorge) Integumentary Skin Exam: Warm (Marichuy Jorge) Extremeties Extremities Exam: No Edema (Marichuy Jorge) Neurologic Neuro Exam: Obtunded (Marichuy Jorge) Assessment/Plan Problem List: (1) Acute kidney insufficiency ICD Codes: N28.9 - Disorder of kidney and ureter, unspecified Status: Acute Plan: Most likely secondary to intravascular volume depletion and possible superimposed sepsis. Except for the creatinine level noted on June 03, 2017 I have no previous laboratory indices available so uncertain if this patient could have underlying CKD also despite a negative history. Renal functions improving overnight Continue IVF. Change to D5 bicarb given hypernatremia. Quite lethargic so doubtful she will be able to sustain adequate po intake at the present Renal US showed small echogenic kidneys, but no obstruction C3 low. Check FABIOLA with titers Patient has evidence of significant chronic debilitation with superimposed acute disease. Prognosis is guarded. Medications should be adjusted for the patient's estimated GFR if clinically indicated. Avoid agents with significant potential for nephrotoxicity possible including NSAIDs for analgesia, iodine contrast agents. Gadolinium is contraindicated if the GFR is below 30. 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 (4) Rheumatoid arthritis ICD Codes: M06.9 - Rheumatoid arthritis, unspecified Status: Chronic (Jorge,Marichuy Janet PA) Plan The exam, history, and the medical decision-making described in the above note were completed with the assistance of the PA-C. I reviewed and agree with the findings presented. (Carmelo Yuan MD) Marichuy Jorge Jun 12, 2017 11:21 Carmelo Yuan MD Jun 12, 2017 16:49
[2017-06-12 12:00] VITALS: BP 96/50; PULSE 106; RESP 18; TEMP 99.6; O2SAT 92
[2017-06-12] MEDS: SODIUM BICARBONATE 8.4% INJ 75 MEQ in DEXT 5%-NACL 0.45% 1000 ML INJ 1,000 ML IV SCH ×2 (12:04→22:16)
--- NOTE | 2017-06-12 13:48 | EKG ---
Date Performed: 06/11/2017 Time Performed: 14:09:20 PTAGE: 72 years EKG: SINUS TACHYCARDIA WITH SHORT [place] INTERVAL NONSPECIFIC T-WAVE ABNORMALITY ABNORMAL RHYTHM ECG NO PREVIOUS TRACING DOCTOR: Aren Herrmann Interpretating Date/Time 06/12/2017 13:43:58
[2017-06-12 16:00] VITALS: BP 93/56; PULSE 103; RESP 18; TEMP 99.3; O2SAT 92
--- NOTE | 2017-06-12 16:18 | HHI.PR ---
Subjective Remarks Patient complains of stomach pain. Poor by mouth intake has existed with inadequate intake causing weight loss and malnutrition. Patient was dehydrated at time of admit and is responding well to IV hydration. Objective Vital Signs Date Time Temp Pulse Resp B/P (MAP) Pulse Ox O2 Delivery O2 Flow Rate FiO2 06/12/17 12:00 99.6 106 18 96/50 (65) 92 06/12/17 08:00 97.3 109 17 116/76 (89) 92 06/12/17 00:12 98.8 112 20 107/65 (79) 99 06/11/17 20:00 97.7 117 20 115/57 (76) 99 I/O 06/11/17 06/11/17 06/11/17 06/12/17 06/12/17 06/12/17 07:00 15:00 23:00 07:00 15:00 23:00 Intake Total 684 ml 941 ml Output Total 100 ml 500 ml Balance 584 ml 441 ml Intake Oral 240 ml IV Total 684 ml 701 ml Output Urine Total 100 ml 500 ml # Bowel Movements 1 Result Diagram: 06/11/17 1410 06/12/17 0655 A/P Problem List: (1) Malnutrition ICD Code: E46 - Unspecified protein-calorie malnutrition (2) Metabolic acidosis ICD Code: E87.2 - Acidosis Status: Acute (3) Acute kidney insufficiency ICD Code: N28.9 - Disorder of kidney and ureter, unspecified Status: Acute (4) 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 Dehydration Acute kidney injury Continue to monitor renal function GI following Continue IV hydration Renal ultrasound suggest possible underlying medical kidney disease Nausea and vomiting Uremia Improved Continue Zofran as needed Failure to thrive Malnutrition Speech therapy evaluation needed and patient cleared for pured and thin liquids Consult dietitian for Calorie count Consider consider TPN or discussion with family in regards to feeding tube based on results of calorie count IV hydration for now, with dextrose Encourage patient to take by mouth intake of food Left-sided contractures Physical therapy and occupational therapy No evidence of CVA on CT of brain Stage II sacral ulcer Wound care nurse consulted Follow clinically Recent C. difficile colitis No diarrhea Follow clinically Chronic steroid dependence Stress dosing steroids continued Suspect underlying adrenal insufficiency without steroids Vitamin D deficiency Continue vitamin D supplementation as tolerated DVT prophylaxis SCD Walter Barbosa MD Jun 12, 2017 16:18
[2017-06-12 20:00] VITALS: BP 111/61; PULSE 108; RESP 16; TEMP 98.7; O2SAT 95
[2017-06-13 00:15] VITALS: BP 105/62; PULSE 103; RESP 16; TEMP 97.3; O2SAT 100
[2017-06-13 08:00] VITALS: BP 103/66; PULSE 98; RESP 20; TEMP 99.3; O2SAT 99
[2017-06-13] MEDS: SODIUM CHLORIDE 0.9% FLUSH 10 ML FLUSH IV FLUSH SCH ×2 (09:00→21:00)
[2017-06-13 09:20] LABS: AUTOMATED NEUTROPHIL # 4.7 TH/MM3 (1.8-7.7); BASOPHIL % 0.4 % (0.0-2.0); EOSINOPHIL % 0.6 % (0.0-4.0); HEMATOCRIT 28.6 % (35.0-46.0); HEMOGLOBIN 9.4 GM/DL (11.6-15.3); LYMPH % 8.2 % (9.0-44.0); LYMPHOCYTE # 0.5 TH/MM3 (1.0-4.8); MEAN CELL VOLUME 87.7 FL (80.0-100.0); MEAN CORPUSCULAR HEMOGLOBIN 28.9 PG (27.0-34.0); MEAN CORPUSCULAR HGB CONC 32.9 % (32.0-36.0); MEAN PLATELET VOLUME 8.8 FL (7.0-11.0); MONO % 10.2 % (0.0-8.0); MONOCYTE # 0.6 TH/MM3 (0-0.9); NEUT % 80.6 % (16.0-70.0); PLATELET COUNT 130 TH/MM3 (150-450); RED BLOOD COUNT 3.25 MIL/MM3 (4.00-5.30); RED CELL DISTRIBUTION WIDTH 16.5 % (11.6-17.2); WHITE BLOOD COUNT 5.8 TH/MM3 (4.0-11.0)
[2017-06-13 09:48] LABS: ALBUMIN 1.9 GM/DL (3.4-5.0); ALKALINE PHOSPHATASE 44 U/L (45-117); ALT (GPT) 11 U/L (10-53); AST (GOT) 24 U/L (15-37); BICARBONATE 29.8 MEQ/L (21.0-32.0); BLOOD UREA NITROGEN 53 MG/DL (7-18); CALCIUM 8.6 MG/DL (8.5-10.1); CHLORIDE 112 MEQ/L (98-107); GLOMERULAR FILTRATION RATE 30 ML/MIN (>89); GLUCOSE,RANDOM 98 MG/DL (74-106); SODIUM (NA) 150 MEQ/L (136-145); TOTAL BILIRUBIN ADULT 0.2 MG/DL (0.2-1.0); TOTAL PROTEIN 4.6 GM/DL (6.4-8.2)
[2017-06-13 10:02] LABS: BANDS 6 % (0-6); LYMPHOCYTES 10 % (9-44); MONOCYTES 7 % (0-8); MYELOCYTES 1 % (0-0); NEUTROPHIL # MANUAL DIFF 4.8 TH/MM3 (1.8-7.7); POLYS (SEG NEUTROPHILS) 76 % (16-70)
[2017-06-13 10:03] LABS: OVALOCYTES 1+ (NORMAL)
[2017-06-13] MEDS: SODIUM BICARBONATE 8.4% INJ 75 MEQ in DEXT 5%-NACL 0.45% 1000 ML INJ 1,000 ML IV SCH (10:45)
[2017-06-13] MEDS: CHOLECALCIFEROL (VIT D3) 5000 UNIT CAP PO SCH (10:46)
[2017-06-13] MEDS: predniSONE 10 MG TAB PO SCH (10:46)
[2017-06-13] MEDS: HEPARIN SODIUM - SQ 10,000 UNITS/ML VIAL SQ SCH ×2 (10:46→22:55)
[2017-06-13] MEDS ORDERED: POTASSIUM CHLOR 20 MEQ PREMIX 100 ML IV ONE (11:15)
[2017-06-13 12:00] VITALS: BP 93/52; PULSE 95; RESP 19; TEMP 99.2; O2SAT 98
[2017-06-13] MEDS ORDERED: SODIUM CHLOR 0.9% 1000 ML INJ 250 ML IV SCH (12:45)
[2017-06-13] MEDS: CARBIDOPA/LEVODOPA 25 MG/100 MG TAB PO SCH ×2 (15:19→15:27)
[2017-06-13 16:00] VITALS: BP 108/62; PULSE 102; RESP 20; TEMP 98.4; O2SAT 98
[2017-06-13] MEDS: DEXTROSE 5% IN WATE 1000ML INJ 1,000 ML IV SCH ×2 (17:45→18:37)
--- NOTE | 2017-06-13 17:47 | HHI.NPPN ---
Subjective History of Present Illness This patient is a 72-year-old female apparently with a history of severe chronic rheumatoid arthritis, hypertension and osteoarthritis. According to the family she has been chronic debilitated in the past but able to get around in a wheelchair. Debilitation related to severe chronic rheumatoid arthritis. More recently a few months ago it appears that she was started on Xeljanz prior to Thanksgiving subsequently developed diarrhea, abnormal liver tests and according to the family renal insufficiency. She was subsequently admitted to [facility] and diagnosis having clostridium difficile. Those records are not available to me currently. She was subsequently discharged to a care home and more recently there has been a recurrence of diarrhea as well as nausea and vomiting. Records from the care home indicated a creatinine level of 3.0 with a BUN of 36 June 03, 2017. Outpatient medications prior to admission included prednisone 5 mg daily but no indication that she was on an NSAID for analgesia. According to the family they noted that her urine was turning dark brown and they had her brought to the hospital for further evaluation. On presentation her creatinine level noted to be 6.01 with a total CO2 on BMP of 17.3. Patient's family also gives a history of poor appetite with progressive weight loss these last several weeks. It appears that she was started on an appetite stimulant which may have been out all but this cannot be confirmed presently. They also mentioned that she has a "sore" on her buttock. Review of Systems General General Remarks Unable to obtain Objective Data Data 06/13/17 06/14/17 19:00 07:00 Intake Total 50 ml Output Total 750 ml Balance -700 ml Intake Oral 50 ml Output Urine Total 750 ml Vital Signs Date Time Temp Pulse Resp B/P (MAP) Pulse Ox O2 Delivery O2 Flow Rate FiO2 06/13/17 16:00 98.4 102 20 108/62 (77) 98 06/13/17 12:00 99.2 95 19 93/52 (66) 98 06/13/17 08:00 99.3 98 20 103/66 (78) 99 06/13/17 00:15 97.3 103 16 105/62 (76) 100 06/12/17 20:00 98.7 108 16 111/61 (78) 95 -: 06/13/17 0700 06/13/17 0700 Physical Exam General Appearance: Sleeping, Malnourished Neck Neck Exam: Neck Supple, Trachea Midline Pulmonary Resp Exam: Clear Bilaterally, Breath Sounds Equal Cardiology CV Exam: Regular, Normal Sinus Rhythm Gastrointestinal/Abdomen GI Exam: Soft Integumentary Skin Exam: Warm Extremeties Extremities Exam: No Edema Neurologic Neuro Exam: Obtunded Assessment/Plan Problem List: (1) Acute kidney insufficiency ICD Codes: N28.9 - Disorder of kidney and ureter, unspecified Status: Acute Plan: Secondary to intravascular volume depletion . Patient is much more alert. Creatinine level much improved and metabolic acidosis has resolved. Converted fluids to D5W in view of persisting hypernatremia. Will defer to primary care physician in regard to options that may be required for the patient to maintain an adequate enteral intake post discharge. Patient will be seen when necessary at this point in time. Please call with any questions. .Patient has evidence of significant chronic debilitation with superimposed acute disease. Prognosis is guarded long-term. Medications should be adjusted for the patient's estimated GFR if clinically indicated. Avoid agents with significant potential for nephrotoxicity possible including NSAIDs for analgesia, iodine contrast agents. Gadolinium is contraindicated if the GFR is below 30. (2) CKD (chronic kidney disease) stage 3, GFR 30-59 ml/min ICD Codes: N18.3 - Chronic kidney disease, stage 3 (moderate) Status: Chronic Plan: Suspected given the elevated creatinine level prior to presentation and echogenic kidneys seen on ultrasound. Baseline creatinine level probably below 2.0. 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 (5) Rheumatoid arthritis ICD Codes: M06.9 - Rheumatoid arthritis, unspecified Status: Chronic Carmelo Yuan MD Jun 13, 2017 17:47
--- NOTE | 2017-06-13 17:57 | HHI.PR ---
Subjective Remarks Patient is a poor historian due to minimal verbal response. She has answers, but she has a low voice and is weakened Objective Vitals Vital Signs Date Time Temp Pulse Resp B/P (MAP) Pulse Ox O2 Delivery O2 Flow Rate FiO2 06/13/17 16:00 98.4 102 20 108/62 (77) 98 06/13/17 12:00 99.2 95 19 93/52 (66) 98 06/13/17 08:00 99.3 98 20 103/66 (78) 99 06/13/17 00:15 97.3 103 16 105/62 (76) 100 06/12/17 20:00 98.7 108 16 111/61 (78) 95 I/O 06/12/17 06/12/17 06/12/17 06/13/17 06/13/17 06/13/17 07:00 15:00 23:00 07:00 15:00 23:00 Intake Total 684 ml 941 ml 849 ml 767 ml 50 ml Output Total 100 ml 500 ml 225 ml 750 ml Balance 584 ml 441 ml 849 ml 542 ml 50 ml -750 ml Intake Oral 240 ml 75 ml 0 ml 50 ml IV Total 684 ml 701 ml 774 ml 767 ml Output Urine Total 100 ml 500 ml 225 ml 750 ml # Bowel Movements 1 Result Diagram: 06/13/17 0700 06/13/17 0700 Objective Remarks GENERAL: Thin patient, generally weak SKIN: Warm and dry. HEAD: Normocephalic. EYES: No scleral icterus. No injection or drainage. NECK: Supple, trachea midline. No JVD or lymphadenopathy. CARDIOVASCULAR: Regular rate and rhythm without murmurs, gallops, or rubs. RESPIRATORY: Breath sounds equal bilaterally. No accessory muscle use. GASTROINTESTINAL: Abdomen soft, non-tender, nondistended. NEURO: stone face, low voice, one word answers, subtle cogwheeling of right arm BACK: Nontender without obvious deformity. No CVA tenderness. EXTREMITIES: no edema A/P Assessment and Plan Dehydration Acute kidney injury Continue IV hydration, follow BMP Renal ultrasound suggest possible underlying medical kidney disease Dysphagia Combined with all symptoms and exam, evidence seems to point to possible Parkinsons Disease Will consult neurology to assist with work up Meanwhile, begin on starting dose of Sinemet to see if symptoms improve. Failure to thrive Malnutrition Speech therapy evaluation needed and patient cleared for pured and thin liquids Consult dietitian for Calorie count TPN is an option, but will need family discussion first IV hydration with dextrose Left-sided contractures Physical therapy and occupational therapy No evidence of CVA on CT of brain Stage II sacral ulcer Wound care nurse consulted Follow clinically Recent C. difficile colitis Asymptomatic, formed stools Chronic steroid dependence Possible underlying adrenal insufficiency without steroids, stress dosing ordered No clinical improvement so far Vitamin D deficiency Continue vitamin D supplementation as tolerated DVT prophylaxis SCD Poncho Barbosa MD Jun 13, 2017 17:56
--- NOTE | 2017-06-13 18:22 | MB ---
cc: DAVID DANIELS M.D. DATE OF CONSULTATION 06/13/2017 REASON FOR CONSULTATION She is a 72-year-old woman seen in neurological consultation in regards to Parkinsonism. HISTORY OF THE PRESENT ILLNESS She is in the hospital since June 11 when she was admitted because of malnutrition. PAST MEDICAL HISTORY The medical history includes: 1. Generalized weakness. 2. Breast cancer. 3. Severe urinary tract infection. She is a [facility] resident. unfortunately I could not get any additional information on this patient and I called the number listed for her daughter which is [phone] and there was no answer. The patient apparently has a history of rheumatoid arthritis as well. She is having some renal insufficiency. PHYSICAL EXAMINATION GENERAL: The exam shows the patient to be malnourished, awake, anxious, repeatedly asking for help as she wanted to be moved from side to side all the time. She asked me to help . I obtained some paper towel and gave it to her and she could not really handle it. She has contracture of her hands from rheumatoid arthritis and some generalized weakness and debilitation. I needed to bring the paper towel to her mouth and she was able to spit up her secretions. She is evidently having difficulty handling secretions. Her speech was fairly clear. She knew her age but thought she was in a [facility]. She had no insight on the date and could not discuss her medical problems at all. She is very frail with some quadriparesis, her reflexes were absent throughout, plantar responses were none versus flexor. She perceives stimulation in all four extremities grossly equally. She has some mild to moderate decreased facial expression. No tremor noted. ASSESSMENT 1. Parkinsonism. 2. Dementia. 3. Rheumatoid arthritis. It is unclear as to the cause of her neurologic status. 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 It could be f Parkinson's dementia. She also could even have motor neuron disorder. I did not see fasciculations. She has diminished reflexes which is against motor neuron disorder but not ruling this out. Unfortunately I was unable to get anymore information on her. At this point she needs medical and supportive care as currently being given. She needs aggressive nutritional care. Trial with levodopa / carbidopa was started which is 25 / 100 mg every 12 hours. In a day or two we could upgrade this to every 4 hours starting 07:00 a.m. and continuing with doses at 11:00 a.m., 03:00 p.m. and 07:00 p.m. Other than that neurological followup as outpatient with the assistance of family members. I should mention the CT brain showed no acute abnormality. I reviewed the laboratory data. CBC a couple of days ago with white count 8.1, hemoglobin was 12.1 and today is 9.4. Platelets is 130 today. Sodium was 150 today. Potassium 2.7. BUN 53. Creatinine 2.0. I will order a B12 level on her. Will also check a CPK. Thank you for asking us to assist in her care. David Daniels MD OF[facility]/KK /5:41 PM /5:57 PM
[2017-06-13 20:00] VITALS: BP 112/71; PULSE 102; RESP 20; TEMP 97.2; O2SAT 100
[2017-06-13 20:57] LABS: AUTOMATED NEUTROPHIL # 8.2 TH/MM3 (1.8-7.7); BASOPHIL % 0.3 % (0.0-2.0); EOSINOPHIL % 0.1 % (0.0-4.0); HEMOGLOBIN 10.1 GM/DL (11.6-15.3); LYMPH % 4.7 % (9.0-44.0); LYMPHOCYTE # 0.4 TH/MM3 (1.0-4.8); MEAN CELL VOLUME 87.8 FL (80.0-100.0); MEAN CORPUSCULAR HEMOGLOBIN 28.6 PG (27.0-34.0); MEAN CORPUSCULAR HGB CONC 32.6 % (32.0-36.0); MEAN PLATELET VOLUME 9.3 FL (7.0-11.0); MONO % 5.6 % (0.0-8.0); MONOCYTE # 0.5 TH/MM3 (0-0.9); NEUT % 89.3 % (16.0-70.0); PLATELET COUNT 169 TH/MM3 (150-450); RED BLOOD COUNT 3.52 MIL/MM3 (4.00-5.30); RED CELL DISTRIBUTION WIDTH 16.5 % (11.6-17.2); WHITE BLOOD COUNT 9.1 TH/MM3 (4.0-11.0)
[2017-06-13 21:49] LABS: BICARBONATE 30.5 MEQ/L (21.0-32.0); CALCIUM 8.8 MG/DL (8.5-10.1); CREATININE 1.64 MG/DL (0.50-1.00)
[2017-06-14 00:26] VITALS: BP 113/66; PULSE 99; RESP 20; TEMP 96.6; O2SAT 100
[2017-06-14 04:31] LABS: BACTERIA, URINE MANY /hpf; BILIRUBIN, URINE NEG (NEG); BLOOD, URINE TRACE (NEG); GLUCOSE,URINE NEG (NEG); HYALINE CAST, URINE 51 /lpf (RARE); KETONE, URINE NEG (NEG); MUCUS URINE FEW /lpf (OCC); NITRITE,URINE POS (NEG); PH, URINE 8.5 (5.0-8.5); SQUAMOUS EPITHELIAL CELL URINE 1 /hpf (0-5); TRIPLE PHOSPHATE CRYSTAL,URINE MANY /hpf; URINE COLOR YELLOW (YELLW/STRAW); URINE LEUKOCYTE ESTERASE LARGE (NEG); WAXY CAST, URINE 13 /lpf; WHITE BLOOD CELL CLUMPS MANY
[2017-06-14 08:00] VITALS: BP 94/53; PULSE 107; RESP 18; TEMP 98.9; O2SAT 97
[2017-06-14] MEDS: SODIUM CHLORIDE 0.9% FLUSH 10 ML FLUSH IV FLUSH SCH ×2 (09:00→20:27)
[2017-06-14 09:35] LABS: BICARBONATE 27.7 MEQ/L (21.0-32.0); CREATININE 1.51 MG/DL (0.50-1.00); MAGNESIUM 1.5 MG/DL (1.5-2.5)
[2017-06-14] MEDS: CHOLECALCIFEROL (VIT D3) 5000 UNIT CAP PO SCH (09:49)
[2017-06-14] MEDS: HEPARIN SODIUM - SQ 10,000 UNITS/ML VIAL SQ SCH ×2 (09:49→20:31)
[2017-06-14] MEDS: predniSONE 10 MG TAB PO SCH (09:49)
[2017-06-14] MEDS: CARBIDOPA/LEVODOPA 25 MG/100 MG TAB PO SCH ×2 (09:49→20:28)
[2017-06-14 10:39] LABS: RPR SCREEN FOR REFLEX NON-REACTIVE (NON-REACTVE)
[2017-06-14] MEDS: NS + KCL 20 MEQ INJ 1,000 ML IV SCH (11:49)
[2017-06-14] MEDS: ACETAMINOPHEN 325 MG TAB PO PRN ×2 (11:50→16:06)
[2017-06-14 12:00] VITALS: BP 100/62; PULSE 92; RESP 18; TEMP 98; O2SAT 97
[2017-06-14 16:00] VITALS: BP 103/73; PULSE 91; RESP 19; TEMP 98.5; O2SAT 98
--- NOTE | 2017-06-14 17:00 | PD.WCN.NOT ---
Wound Consult Description: Received consult for wound management of sacral area from Doctor Bob Communicated with: LAURE burch and Doctor Poncho Barbosa Recommendation: 1.Please cleanse wound to sacrum with normal saline or wound cleanser and pat dry. Apply small amount of hydrogel on wound bed only and cover with 2x2 gauze .Apply Calazime barrier cream to periwound and moisture related partial thickness skin loss Secure with ABD pad and medfix tape.Apply skin prep to intact skin before applying tape to skin.Change dressing daily or PRN if saturated or dislodged. 2.Insert Dignisheild for frequent loose stools. 3. Turn patient every 2 hours and PRN for comfort and offloading of pressure from mague prominences 4. Please use ultrasorb pads only for incontinence management. 5. Vocera wound care nurse for wound deterioration. Additional Information: Patient seen on for sacral wound management.Patient assessed with the assistance of Sugar burch and freelance writer. Patient was turned to R side with maximum assistance of LAURE Wooten and freelance writer. to reveal stage 3 pressure injury to sacral area with mixed etiology of moisture, pressure and friction. Wound measures 2.8cm x 2cm x 0.3cm. Wound bed presents with ~20% pink tissue, ~ 40% red non-granulation tissue and ~20% adipose tissue. Periwound is noted with scattered small areas or diffuse partial thickness skin loss that was moisture related. Wound has no active drainage and a dry wound bed without foul odor.Patient also noted laying in a large amount of foul smelling liquid brown stool. Patient was cleansed with soap, and water on soft cloths, rinsed and patted dry. Soiled incontinence pads were removed and replaced with two staggered ultrasorb pads. Obtained physician order to insert Dignisheild for loose stools. Calazime barrier cream was applied to periwound partial thickness skin loss and denuded skin. Pea sized amount of hydrogel was applied to wound bed only and covered with 2x2 gauze pad. Secured dressing with ABD pad and paper tape. Skin prep was applied before tape was applied to skin.Patient tolerated dressing change fairly with some complaints of pain with turning and repositioning. Sydney Persaud [facility] Jun 14, 2017 17:00
[2017-06-14 20:00] VITALS: BP 99/62; PULSE 85; RESP 14; TEMP 97.8; O2SAT 96
--- NOTE | 2017-06-14 21:44 | HHI.PR ---
Subjective Remarks Patient is alert, oriented, moving better, expression in her face, and normalized speech. She has rheumatoid arthritis and some associated pain. Objective Vitals Vital Signs Date Time Temp Pulse Resp B/P (MAP) Pulse Ox O2 Delivery O2 Flow Rate FiO2 06/14/17 16:00 98.5 91 19 103/73 (83) 98 06/14/17 12:00 98.0 92 18 100/62 (75) 97 06/14/17 08:00 98.9 107 18 94/53 (67) 97 06/14/17 00:26 96.6 99 20 113/66 (82) 100 I/O 06/13/17 06/13/17 06/13/17 06/14/17 06/14/17 06/14/17 07:00 15:00 23:00 07:00 15:00 23:00 Intake Total 767 ml 50 ml 500 ml 840 ml 248 ml 125 ml Output Total 225 ml 1600 ml 600 ml 250 ml Balance 542 ml 50 ml -1100 ml 240 ml 248 ml -125 ml Intake Oral 0 ml 50 ml 120 ml 240 ml 125 ml IV Total 767 ml 380 ml 600 ml 248 ml Output Urine Total 225 ml 1600 ml 600 ml 250 ml # Bowel Movements 1 1 Result Diagram: 06/13/17201206/14/17821 Objective Remarks GENERAL: Thin patient, generally weak, but much more mobile and responsive after starting Sinemet SKIN: Warm and dry. HEAD: Normocephalic. EYES: No scleral icterus. No injection or drainage. NECK: Supple, trachea midline. No JVD or lymphadenopathy. CARDIOVASCULAR: Regular rate and rhythm without murmurs, gallops, or rubs. RESPIRATORY: Breath sounds equal bilaterally. No accessory muscle use. GASTROINTESTINAL: Abdomen soft, non-tender, nondistended. NEURO: parkinson's symptoms remarkably improved following Sinemet doses BACK: Nontender without obvious deformity. No CVA tenderness. EXTREMITIES: no edema A/P Assessment and Plan Dehydration Acute kidney injury Renal function improving daily with IVF rehydration Dysphagia Combined with all symptoms and exam, evidence seems to point to possible Parkinsons Disease Drastically improved following 2 doses of Sinemet Appreciate Neurology consultation Failure to thrive Malnutrition Drastic improvement following Sinemet Reevaluation of swallow function tomorrow Left-sided contractures Physical therapy and occupational therapy No evidence of CVA on CT of brain Stage II sacral ulcer Wound care nurse consulted Follow clinically Recent C. difficile colitis Asymptomatic, formed stools Vitamin D deficiency Continue vitamin D supplementation as tolerated DVT prophylaxis SCD Poncho Barbosa MD Jun 14, 2017 21:43
[2017-06-15] VITALS: BP 99/65; PULSE 86; RESP 14; TEMP 97.9; O2SAT 97
[2017-06-15] MEDS: DEXTROSE 5% IN WATE 1000ML INJ 1,000 ML IV SCH ×2 (00:02→19:45)
[2017-06-15 08:00] VITALS: BP 130/82; PULSE 96; RESP 18; TEMP 95.4; O2SAT 99
[2017-06-15] MEDS: SODIUM CHLORIDE 0.9% FLUSH 10 ML FLUSH IV FLUSH SCH ×2 (09:00→21:00)
[2017-06-15] MEDS: predniSONE 10 MG TAB PO SCH (09:14)
[2017-06-15] MEDS: CHOLECALCIFEROL (VIT D3) 5000 UNIT CAP PO SCH (09:14)
[2017-06-15] MEDS: CARBIDOPA/LEVODOPA 25 MG/100 MG TAB PO SCH ×2 (09:14→22:56)
[2017-06-15] MEDS: HEPARIN SODIUM - SQ 10,000 UNITS/ML VIAL SQ SCH ×2 (09:19→22:57)
[2017-06-15] MEDS: NS + KCL 20 MEQ INJ 1,000 ML IV SCH (09:20)
[2017-06-15 12:00] VITALS: BP 93/62; PULSE 94; RESP 18; TEMP 97.6; O2SAT 97
[2017-06-15] MEDS: ACETAMINOPHEN 325 MG TAB PO PRN ×2 (12:18→17:00)
[2017-06-15] MEDS: 1/2 NS + KCL 20 MEQ INJ 1,000 ML IV SCH (14:05)
[2017-06-15 16:00] VITALS: BP 131/77; PULSE 93; RESP 17; TEMP 97.6; O2SAT 98
--- NOTE | 2017-06-15 17:52 | HHI.PR ---
Subjective Remarks Patient has no interest in food, but is requesting soda to drink. She states she is not hungry. Objective Vitals Vital Signs Date Time Temp Pulse Resp B/P (MAP) Pulse Ox O2 Delivery O2 Flow Rate FiO2 06/15/17 16:00 97.6 93 17 131/77 (95) 98 06/15/17 12:00 97.6 94 18 93/62 (72) 97 06/15/17 08:00 95.4 96 18 130/82 (98) 99 06/15/17 00:00 97.9 86 14 99/65 (76) 97 06/14/17 20:00 97.8 85 14 99/62 (74) 96 I/O 06/14/17 06/14/17 06/14/17 06/15/17 06/15/17 06/15/17 07:00 15:00 23:00 07:00 15:00 23:00 Intake Total 840 ml 248 ml 125 ml 240 ml Output Total 600 ml 250 ml 300 ml 1000 ml Balance 240 ml 248 ml -125 ml -60 ml -1000 ml Intake Oral 240 ml 125 ml 240 ml IV Total 600 ml 248 ml Output Urine Total 600 ml 250 ml 300 ml Stool Total 1000 ml # Bowel Movements 1 Result Diagram: 06/13/17201206/14/17821 Objective Remarks GENERAL: Thin patient, generally weak, but much more mobile and responsive after starting Sinemet SKIN: Warm and dry. HEAD: Normocephalic. EYES: No scleral icterus. No injection or drainage. NECK: Supple, trachea midline. No JVD or lymphadenopathy. CARDIOVASCULAR: Regular rate and rhythm without murmurs, gallops, or rubs. RESPIRATORY: Breath sounds equal bilaterally. No accessory muscle use. GASTROINTESTINAL: Abdomen soft, non-tender, nondistended. NEURO: parkinson's symptoms remarkably improved following Sinemet doses BACK: Nontender without obvious deformity. No CVA tenderness. EXTREMITIES: no edema A/P Assessment and Plan Dehydration w/ ARF Renal function improving daily with IVF rehydration Dysphagia, Failure to Thrive, Malnutrition Mostly resolved following Sinemet, likely due to parkinsons type movement disorder Appreciate Neurology consultation Starting Marinol to assist with anorexia Left-sided contractures Physical therapy and occupational therapy No evidence of CVA on CT of brain Stage II sacral ulcer Wound care nurse consulted Follow clinically Recent C. difficile colitis Asymptomatic, formed stools Vitamin D deficiency Continue vitamin D supplementation as tolerated DVT prophylaxis SCD Poncho Barbosa MD Jun 15, 2017 17:52
[2017-06-16 08:00] VITALS: BP 106/67; PULSE 112; RESP 16; TEMP 98.1; O2SAT 98
[2017-06-16] MEDS: SODIUM CHLORIDE 0.9% FLUSH 10 ML FLUSH IV FLUSH SCH ×2 (09:00→20:25)
[2017-06-16] MEDS: predniSONE 10 MG TAB PO SCH (10:55)
[2017-06-16] MEDS: DRONABINOL 2.5 MG CAP PO SCH ×2 (10:55→15:41)
[2017-06-16] MEDS: CARBIDOPA/LEVODOPA 25 MG/100 MG TAB PO SCH ×2 (10:56→20:25)
[2017-06-16] MEDS: CHOLECALCIFEROL (VIT D3) 5000 UNIT CAP PO SCH (10:56)
[2017-06-16] MEDS: HEPARIN SODIUM - SQ 10,000 UNITS/ML VIAL SQ SCH ×2 (10:56→20:26)
[2017-06-16 12:00] VITALS: BP 90/56; PULSE 119; RESP 18; TEMP 96.6; O2SAT 94
[2017-06-16] MEDS ORDERED: ACETAMINOPHEN/HYDROcodone 325 MG/5 MG TAB PO ONE (12:00)
[2017-06-16] MEDS: DEXTROSE 5% IN WATE 1000ML INJ 1,000 ML IV SCH (12:25)
[2017-06-16] MEDS: 1/2 NS + KCL 20 MEQ INJ 1,000 ML IV SCH (15:42)
[2017-06-16 16:00] VITALS: BP 106/66; PULSE 107; RESP 16; TEMP 98.1; O2SAT 99
[2017-06-16] MEDS: ACETAMINOPHEN 325 MG TAB PO PRN (16:12)
--- NOTE | 2017-06-16 19:04 | HHI.PR ---
Subjective Remarks Pt is working with PT today. She is still not hungry despite starting Marinol. Objective Vitals Vital Signs Date Time Temp Pulse Resp B/P (MAP) Pulse Ox O2 Delivery O2 Flow Rate FiO2 06/16/17 16:00 98.1 107 16 106/66 (79) 99 06/16/17 12:00 96.6 119 18 90/56 (67) 94 06/16/17 08:00 98.1 112 16 106/67 (80) 98 I/O 06/15/17 06/15/17 06/15/17 06/16/17 06/16/17 06/16/17 07:00 15:00 23:00 07:00 15:00 23:00 Intake Total 240 ml 200 ml 225 ml 120 ml Output Total 300 ml 1000 ml 125 ml 100 ml Balance -60 ml -800 ml 100 ml 20 ml Intake Oral 240 ml 225 ml 120 ml IV Total 200 ml Output Urine Total 300 ml 125 ml 100 ml Stool Total 1000 ml Result Diagram: 06/13/17201206/14/17821 Objective Remarks GENERAL: Thin patient, generally weak, but much more mobile and responsive after starting Sinemet SKIN: Warm and dry. HEAD: Normocephalic. EYES: No scleral icterus. No injection or drainage. NECK: Supple, trachea midline. No JVD or lymphadenopathy. CARDIOVASCULAR: Regular rate and rhythm without murmurs, gallops, or rubs. RESPIRATORY: Breath sounds equal bilaterally. No accessory muscle use. GASTROINTESTINAL: Abdomen soft, non-tender, nondistended. NEURO: parkinson's symptoms remarkably improved following Sinemet doses BACK: Nontender without obvious deformity. No CVA tenderness. EXTREMITIES: no edema A/P Assessment and Plan Dehydration w/ ARF Renal function improving daily with IVF rehydration Trouble obtaining labs today Dysphagia, Failure to Thrive, Malnutrition Mostly resolved following Sinemet, likely due to parkinsons type movement disorder Appreciate Neurology consultation Marinol to assist with anorexia Hypokalemia Unable to follow labs today due to difficulty obtaining blood Left-sided contractures Physical therapy and occupational therapy No evidence of CVA on CT of brain Stage II sacral ulcer Wound care nurse consulted, dressing recommendations ordered Follow clinically Recent C. difficile colitis Asymptomatic, formed stools Vitamin D deficiency Continue vitamin D supplementation as tolerated DVT prophylaxis SCD Poncho Barbosa MD Jun 16, 2017 19:04
[2017-06-16 20:00] VITALS: BP 130/84; PULSE 120; RESP 16; TEMP 97.1; O2SAT 100
[2017-06-17] VITALS: BP 112/75; PULSE 123; RESP 18; TEMP 98.5; O2SAT 100
[2017-06-17] MEDS: DEXTROSE 5% IN WATE 1000ML INJ 1,000 ML IV SCH (05:05)
[2017-06-17 06:08] LABS: AUTOMATED NEUTROPHIL # 6.9 TH/MM3 (1.8-7.7); BASOPHIL % 0.2 % (0.0-2.0); EOSINOPHIL % 0.3 % (0.0-4.0); HEMOGLOBIN 11.8 GM/DL (11.6-15.3); LYMPH % 9.3 % (9.0-44.0); LYMPHOCYTE # 0.8 TH/MM3 (1.0-4.8); MEAN CELL VOLUME 88.9 FL (80.0-100.0); MEAN CORPUSCULAR HEMOGLOBIN 29.1 PG (27.0-34.0); MEAN CORPUSCULAR HGB CONC 32.7 % (32.0-36.0); MEAN PLATELET VOLUME 9.2 FL (7.0-11.0); MONO % 10.5 % (0.0-8.0); MONOCYTE # 0.9 TH/MM3 (0-0.9); NEUT % 79.7 % (16.0-70.0); PLATELET COUNT 185 TH/MM3 (150-450); RED BLOOD COUNT 4.05 MIL/MM3 (4.00-5.30); RED CELL DISTRIBUTION WIDTH 17.3 % (11.6-17.2); WHITE BLOOD COUNT 8.6 TH/MM3 (4.0-11.0)
[2017-06-17 06:49] LABS: BICARBONATE 18.9 MEQ/L (21.0-32.0); CALCIUM 9.4 MG/DL (8.5-10.1); CREATININE 1.17 MG/DL (0.50-1.00)
[2017-06-17 08:00] VITALS: BP 112/69; PULSE 86; RESP 18; TEMP 97.9; O2SAT 99
[2017-06-17] MEDS: SODIUM CHLORIDE 0.9% FLUSH 10 ML FLUSH IV FLUSH SCH ×2 (08:26→20:40)
[2017-06-17] MEDS: CARBIDOPA/LEVODOPA 25 MG/100 MG TAB PO SCH ×2 (08:26→20:36)
[2017-06-17] MEDS: predniSONE 10 MG TAB PO SCH (08:26)
[2017-06-17] MEDS: CHOLECALCIFEROL (VIT D3) 5000 UNIT CAP PO SCH (08:26)
[2017-06-17] MEDS: HEPARIN SODIUM - SQ 10,000 UNITS/ML VIAL SQ SCH ×2 (08:26→20:37)
[2017-06-17 09:35] LABS: BANDS 4 % (0-6); LYMPHOCYTES 7 % (9-44); METAMYELOCYTES 3 % (0-1); MONOCYTES 8 % (0-8); NEUTROPHIL # MANUAL DIFF 7.3 TH/MM3 (1.8-7.7); OVALOCYTES 1+ (NORMAL); POLYS (SEG NEUTROPHILS) 78 % (16-70)
[2017-06-17 09:36] LABS: ACANTHOCYTES OCC (NORMAL); HELMET CELLS OCC (NORMAL)
[2017-06-17] MEDS: DRONABINOL 2.5 MG CAP PO SCH ×2 (11:59→17:15)
[2017-06-17 12:00] VITALS: BP 99/69; PULSE 115; RESP 18; TEMP 98.1; O2SAT 96
[2017-06-17] MEDS: metroNIDAZOLE 500 MG TAB PO SCH ×2 (14:00→23:04)
[2017-06-17] MEDS: CEPHALEXIN MONOHYDRATE 500 MG CAP PO SCH ×2 (14:00→23:04)
--- NOTE | 2017-06-17 14:14 | PD.CONS ---
Consult Service Palliative Care Consult Requested By Dr. Valenzuela Primary Care Physician Stefano Gaona MD Reason for Consultation a. To assist with evaluation and management of symptoms including: depression and decrease appetite. b. To assist medical decision maker(s) with: better understanding of current medical conditions; weighing benefits/burdens of medical treatment options; making medical treatment decisions. HPI History of Present Illness Patient is a 72-year-old with past medical history of anemia, arthritis, hypercholesteremia, hypertension, rheumatoid arthritis breast CA status post left mastectomy that presented to the hospital on 06/11/2017 for decrease in eating and drinking, fatigue and concern about dehydration. She had had diarrhea with recent hospitalization in [facility] for C. difficile. Patient was discharged to a skilled nursing. Patient had a reoccurrence of diarrhea and nausea and vomiting. Patient has a history of poor appetite, progressive weight loss. Patient also has sore on her buttock. In the ER: * Temperature is 98.1, pulses 126, respirations 18, blood pressure is 110/71, pulse ox is 95% * WBCs 8.1, hemoglobin is 12.1, hematocrit is 37.2, platelet is 200 * Sodium is 146, potassium is 4.0, chloride is 114, bicarbonate is 18.6, BUN 72 , creatinine 3.71 * AST is 22, ALT is 12, alkaline phosphatase is 49, albumin is 2.0 * PT is 11.6, INR is 1.1, PTT is 26.4 * Renal ultrasound shows mild echogenic kidneys factors to go with medical renal disease * Head CT shows no acute intracranial abnormalities * Abdominal x-ray shows no obvious obstruction or pneumoperitoneum, lung bases are clear Patient was admitted to the hospital and seen by hospitalist. Nephrology was consulted and recommend IV hydration, and nephrology following to see if patient needs dialytic support. 06/12/2017-renal ultrasound shows small echogenic kidneys but no obstruction. FABIOLA titers are checked C3 are low. Creatinine has slowly improved from 6.012 to 3.71 06/13/2017- patient seen by speech and recommend pured diet. Patient remains minimally verbally responsive, and has a low voice which is weakened. Neurology was consulted. Neurology feel differential diagnosis is Parkinson's/ dementia. Trial of levodopa/carbidopa was started and recommend follow-up as outpatient. Wound nurse managing patient's sacral wound. 06/14/2017- patient is noted by attending physicians and to be a little bit more alert oriented and moving better with more expression her face. Also that his speech has been a little bit more normalized. There seems to be more hyponatremia. Creatinine has decreased to 2.0, and there is low potassium. 06/15/2017- patient has expressed no interest in food, but is requesting Kaye to drink. Marinol was started to assist with anorexia. Patient Sinemet is continued for parkinsonian presentation. Stools are now formed. 06/16/2017- patient is engaging with PT, still not hungry despite starting Marinol. Potassium is 2.9, creatinine continued to trend down to 1.51. 06/17/2017- palliative care was consulted to review goals of care, long-term and short-term. Patient endorse currently she is not painful. She stated she is feeling fine. She denies any nausea or vomiting. She did say she has no appetite. Her daughter did endorse with encouragement she was able to finish her boost/shake yesterday. Spoke with pt and updated daughter on her on her clinical situation. She is a full code. She does not want peg or trach. She does not want feeding tube. She denies suicidal ideation, but pt's daughter ask her if she is trying to , pt has said "Yes." Goals of care are the follows: == concept of hospice was introduce to daughter, especially if nutritionally pt does not rebound. ==Patient has had worsening neuromusuclarly/ functionally for the past few months,and has had changes in gait and near falls. Patient however, after Sinemet was started did have some respond, and had better speech, became more alert. Sacral wound happened after pt has developed c.diff diarreah and skin breakdown since last hospitalization. Daughter at this point would see if further titration and follow up with neurology with titration of sinemet can improve her clinical condition. She was living independenly prior, is her functional decline due to undiagnosed parkingsons? ==It appears there may be some depression, which also may contribute to her lack of appetite. Daughter wants to talk with patient, before psychiatry consult is placed. == Pt does not want feeding tube if it gets to that point. == Full Code for the time being, but no trach or peg. == Pt does not want to complete healthcare surrogate or living will at this time. Function/Cognitive Trajectory Patient has gait change, and near falls for the past 3 months. Prior to thanksgiving, she has been living independtly. Daughter state bedsore happened after hospitalization from c.diff/ skin breakdown/ and constant diarrhea. Review of Systems ROS Limitations: Clinical Condition Constitutional: COMPLAINS OF: Fatigue Neurologic: COMPLAINS OF: Localized weakness Psychiatric: COMPLAINS OF: Depression Past Family Social History Coded Allergies: iodine (Verified Allergy, Severe, 06/11/17) Past Medical History Chronic rheumatoid arthritis Chronic dilatation C. difficile colitis successfully treated Vitamin D deficiency recently diagnosed on outside labs History of UTIs in the past. History of chronic anemia Past Surgical History left mastectomy without radiation or chemotherapy Reported Medications Phenergan GlycoLax Zofran Pepcid Prednisone Lactic acid Sorbic acid Current Medications Medications (Trade) Dose Ordered Sig/Melinda Route Start Time Stop Time Status Last Admin (NS Flush) 2 ml UNSCH PRN IV FLUSH 06/11/17 17:00 (NS Flush) 2 ml BID IV FLUSH 06/11/17 21:00 06/14/17 20:27 (Narcan Inj) 0.4 mg UNSCH PRN IV PUSH 06/11/17 17:00 (Milk Of Magnesia Liq) 30 ml Q12H PRN PO 06/11/17 17:00 (Senokot) 17.2 mg Q12H PRN PO 06/11/17 17:00 (Dulcolax Supp) 10 mg DAILY PRN RECTAL 06/11/17 17:00 (Lactulose Liq) 30 ml DAILY PRN PO 06/11/17 17:00 (Deltasone) 10 mg DAILY PO 06/12/17 09:00 06/17/17 08:26 (Vitamin D3) 5,000 units DAILY PO 06/12/17 09:00 06/17/17 08:26 (Zofran Inj) 4 mg Q6HR PRN IV PUSH 06/11/17 18:00 (Heparin Inj) 5,000 units Q12HR SQ 06/11/17 21:00 06/17/17 08:26 (Sinemet 25-100 Mg) 1 tab Q12HR PO 06/13/17 13:00 06/17/17 08:26 Dextrose 1,000 ml @ 60 mls/hr [id number] IV 06/13/17 17:45 06/13/17 18:37 (Tylenol) 650 mg Q4H PRN PO 06/14/17 11:00 06/16/17 16:12 Potassium Chloride/Sodium Chloride 1,000 ml @ 42 mls/hr [id number] IV 06/15/17 14:00 06/16/17 15:42 (Marinol) 2.5 mg BID@11,16 PO 06/16/17 11:00 06/17/17 11:59 (Keflex) 500 mg Q8HR PO 06/17/17 14:00 (Flagyl) 500 mg Q8HR PO 06/17/17 14:00 (Lactinex) 1 tab Q12HR PO 06/17/17 21:00 Family History family history reviewed, and found to be currently noncontributory. Substance Use Tobacco: Nonsmoker Alcohol: Nondrinker Prescription med abuse: None Illicits: None Psychosocial History Chronically ill from Rhematoid Arthritis for the past 20 years. Has 2 daughters, and 1 grandson and 1 grandaughter. From [facility]. Spiritual/Cultural Factors unknown. Living Will: Never completed Health Care Surrogate: Never completed Durable Power of Pharmacy Informaticist: Never completed Physical Exam Vital Signs Date Time Temp Pulse Resp B/P (MAP) Pulse Ox O2 Delivery O2 Flow Rate FiO2 06/17/17 12:00 98.1 115 18 99/69 (79) 96 06/17/17 08:00 97.9 86 18 112/69 (83) 99 06/17/17 00:00 98.5 123 18 112/75 (87) 100 06/16/17 20:00 97.1 120 16 130/84 (99) 100 06/16/17 16:00 98.1 107 16 106/66 (79) 99 Exam CONSTITUTIONAL/GENERAL: This is frail lady, laying in bed, no acute distress. SKIN: No jaundice, rashes, or lesions. Ecchymoses on upper extremities. No wounds seen anteriorly. Skin temperature appropriate. Not diaphoretic. HEAD: Atraumatic. Normocephalic. EYES: Pupils equal and round and reactive. Extraocular motions intact. No scleral icterus. No injection or drainage. Fundi not examined. ENT: Hearing grossly normal. Nose without bleeding or purulent drainage. Throat without visible erythema, exudates, masses, or lesions. NECK: Trachea midline. Supple, nontender. No palpable thyroid enlargement or nodularity. CARDIOVASCULAR: Regular rate and rhythm without murmurs, gallops, or rubs. No JVD. Peripheral pulses symmetric. RESPIRATORY/CHEST: Symmetric, unlabored respirations. Clear to auscultation. Breath sounds equal bilaterally. No wheezes, rales, or rhonchi. GASTROINTESTINAL: Abdomen soft, non-tender, nondistended. No hepato-splenomegaly , or palpable masses. No guarding. Bowel sounds present. GENITOURINARY: Without palpable bladder distension. Ray catheter in place. MUSCULOSKELETAL: Extremities without clubbing, cyanosis, or edema. No joint tenderness or effusion noted. . No mottling or clubbing. LYMPHATICS: No palpable cervical or supraclavicular adenopathy. NEUROLOGICAL: Awake and alert. Motor and sensory grossly within normal limits. Follows commands. Cognitively sharp. Moves all extremities. PSYCHIATRIC: No obvious anxiety/depression. no apparent hallucinations or other psychotic thought process. Diagnostic Tests Laboratory Laboratory Tests Test 06/14/17 21:05 06/17/17 03:58 Stool C. difficile Toxin (PCR) POSITIVE (NEGATIVE) Stl C. difficile Toxin Epiderm 027 PRESUMPTIVE NEGATIVE White Blood Count 8.6 TH/MM3 (4.0-11.0) Red Blood Count 4.05 MIL/MM3 (4.00-5.30) Hemoglobin 11.8 GM/DL (11.6-15.3) Hematocrit 36.0 % (35.0-46.0) Mean Corpuscular Volume 88.9 FL (80.0-100.0) Mean Corpuscular Hemoglobin 29.1 PG (27.0-34.0) Mean Corpuscular Hemoglobin Concent 32.7 % (32.0-36.0) Red Cell Distribution Width 17.3 % (11.6-17.2) Platelet Count 185 TH/MM3 (150-450) Mean Platelet Volume 9.2 FL (7.0-11.0) Neutrophils (%) (Auto) 79.7 % (16.0-70.0) Lymphocytes (%) (Auto) 9.3 % (9.0-44.0) Monocytes (%) (Auto) 10.5 % (0.0-8.0) Eosinophils (%) (Auto) 0.3 % (0.0-4.0) Basophils (%) (Auto) 0.2 % (0.0-2.0) Neutrophils # (Auto) 6.9 TH/MM3 (1.8-7.7) Lymphocytes # (Auto) 0.8 TH/MM3 (1.0-4.8) Monocytes # (Auto) 0.9 TH/MM3 (0-0.9) Eosinophils # (Auto) 0.0 TH/MM3 (0-0.4) Basophils # (Auto) 0.0 TH/MM3 (0-0.2) CBC Comment AUTO DIFF Differential Total Cells Counted 100 Neutrophils % (Manual) 78 % (16-70) Band Neutrophils % 4 % (0-6) Lymphocytes % 7 % (9-44) Monocytes % 8 % (0-8) Neutrophils # (Manual) 7.3 TH/MM3 (1.8-7.7) Metamyelocytes 3 % (0-1) Differential Comment FINAL DIFF MANUAL Platelet Estimate NORMAL (NORMAL) Platelet Morphology Comment NORMAL (NORMAL) Ovalocytes 1+ (NORMAL) Helmet Cells OCC (NORMAL) Acanthocytes OCC (NORMAL) Blood Urea Nitrogen 32 MG/DL (7-18) Creatinine 1.17 MG/DL (0.50-1.00) Random Glucose 68 MG/DL (74-106) Calcium Level 9.4 MG/DL (8.5-10.1) Sodium Level 147 MEQ/L (136-145) Potassium Level 3.9 MEQ/L (3.5-5.1) Chloride Level 118 MEQ/L (98-107) Carbon Dioxide Level 18.9 MEQ/L (21.0-32.0) Anion Gap 10 MEQ/L (5-15) Estimat Glomerular Filtration Rate 55 ML/MIN (>89) Result Diagram: 06/17/17 0358 06/17/17 0358 Imaging Last Impressions Renal Ultrasound 06/11/17 0000 Signed Impressions: Service Date/Time: Sunday, June 11, 2017 17:30 - CONCLUSION: 1. Mild echogenic kidneys characteristic of medical renal disease. Small renal calcifications. Delonte Gonzalez MD Head CT 06/11/17 0000 Signed Impressions: Service Date/Time: Sunday, June 11, 2017 20:44 - CONCLUSION: 1. No acute intracranial abnormalities. Delonte Gonzalez MD Abdomen X-Ray 06/11/17 0000 Signed Impressions: Service Date/Time: Sunday, June 11, 2017 17:12 - CONCLUSION: Limited examination with no obvious obstruction or pneumoperitoneum. Lung bases are clear. Eduardo Rosas MD Patient/Family Conference Family Conference Location: Bedside, Telephone Issues Discussed: * Palliative care role, purpose, approach * Additional medical, psychosocial, and spiritual history * Patients general health, functional status, and cognitive changes in the months leading up to the current hospitalization * Patient/family understanding of the current medical problems * Patient/family understanding of prognosis * Patients goals of care as best understood from advance directives and/or conversations and/or values * Current medical treatment options and benefits/burdens of those options * Likely scenarios comparing ongoing aggressive care with a transition to comfort measures only * Questions answered to the best of my ability * Palliative care contact information provided Assessment and Plan Disease Oriented Problem List: (1) Parkinsonian features (2) Rheumatoid arthritis (3) Acute kidney insufficiency (4) Malnutrition Symptom Scale: (1) Malnutrition 0-10 Scale: Unable to quantify (2) Pain 0-10 Scale: 0 (denies pain currently, but has hx of rhematoid arthritis.) Pertinent Non-Medical Issues Psychosocial: have been debiliated by rhematoid arthritis for years and could not work. Spiritual:did not address this visit. Legal: health care proxy are daughters Kathy Jeong [phone] Daughter. Courtney Bajwa [phone] Daughter Ethical issues impacting care:not at the current time Important Contacts Kathy Jeong [phone] Daughter. Courtney Bajwa [phone] Daughter Prognosis 72 year old with mal- nutrition and possibly untreated parkinsonian features- Neuromuscularlly since starting sinemet, pt motor function, speech has improved as documented by attending physicians. Nutrition remains a challenge. Prognosis is guarded and remains to see how much of a rebound pt will have after continue titration of sinemet. Code Status: Full Code Plan == capacity- pt appears to have capacity today. == code: Full code; no trach or peg. == Health care proxy: Pt not , has 2 children. pt's daughters would be health care proxy. == Symptoms:malturition- likely multifactorial- undiagosed parkingsonian syndrome/ depression from chronic illness. Continue marinol for now. depression- had told daughter she wanted to privately. Could there be undiagnosed depression from chronic illness? Daughter wanted to speak with mother before me placing a psych consult. I think psych expertise is warranted given there is also probable parkingson's in the differential. == Goals of care are the follows: * concept of hospice was introduce to daughter, especially if nutritionally pt does not rebound. * Patient has had worsening neuromusuclarly/ functionally for the past few months,and has had changes in gait and near falls. Patient however, after Sinemet initiated this hospitalization, did have some respond, and had better speech, became more alert. Sacral wound happened after pt has developed c.diff diarreah and skin breakdown since last hospitalization. Daughter at this point would see if further titration and follow up with neurology with titration of sinemet can improve her clinical condition. She was living independenly prior, but has had gain changes and near falls. Is her functional decline due to undiagnosed parkingsons? * It appears there may be some depression, which also may contribute to her lack of appetite. Daughter wants to talk with patient, before psychiatry consult is placed. * Pt does not want feeding tube if it gets to that point. * Full Code for the time being, but no trach or peg. * Pt does not want to complete healthcare surrogate or living will at this time. == Palliative Care will continue to follow and review goals of care, and make recommendation on symptom managment as clinical condition evolves. Thank you for the opportunity to participate in the care of Ms. Jeong. Attestation To help prompt me to consider important information that might be impacting today's encounter and assessment, information from prior notes written by myself or my colleagues may have been "brought forward" into today's note. My signature on this note, however, is an attestation that I personally performed the exam, history, and/or decision-making noted today, and, unless otherwise indicated, the interactions with patient, family, and staff as well as the review of records all occurred today. I also attest that the listed assessment and stated plan reflect my best clinical judgment today based on the combination of historical information, prior notes, and today's exam/ interactions. When time spent is documented, it refers only to time spent today by the signer, or if indicated, combined time spent today by collaborating physician/nurse practitioner. Rikki Mera MD Jun 17, 2017 14:14
--- NOTE | 2017-06-17 15:23 | HHI.PR ---
Subjective Remarks She states that she is not in pain. Objective Vitals Vital Signs Date Time Temp Pulse Resp B/P (MAP) Pulse Ox O2 Delivery O2 Flow Rate FiO2 06/17/17 12:00 98.1 115 18 99/69 (79) 96 06/17/17 08:00 97.9 86 18 112/69 (83) 99 06/17/17 00:00 98.5 123 18 112/75 (87) 100 06/16/17 20:00 97.1 120 16 130/84 (99) 100 06/16/17 16:00 98.1 107 16 106/66 (79) 99 I/O 06/16/17 06/16/17 06/16/17 06/17/17 06/17/17 06/17/17 07:00 15:00 23:00 07:00 15:00 23:00 Intake Total 120 ml 1000 ml Output Total 100 ml 1075 ml Balance 20 ml 1000 ml -1075 ml Intake Oral 120 ml IV Total 1000 ml Output Urine Total 100 ml 375 ml Stool Total 700 ml Result Diagram: 06/17/17 0358 06/17/17 0358 Objective Remarks GENERAL: This is a thin patient, in no apparent distress. CARDIOVASCULAR: Regular rate and rhythm RESPIRATORY: Clear to auscultation. Breath sounds equal bilaterally. No wheezes , rales, or rho few bowel sounds Abdomen: Soft nontender Normal active bowel sounds Extremities Atrophic NEURO: Confused and not oriented to person or place but did answers certain questions and respond to voice stimuli. Generalized weakness A/P Assessment and Plan Dehydration w/ ARF likely due to poor oral intake and failure to thrive Renal function improving daily with IVF rehydration and oral intake. 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 Appreciate Neurology consultation Marinol to assist with anorexia Dietary consult add ensure with assisted feeding Palliative care consult to assist in determination of goals of this consultation future long-term goals Hypernatremia due to dehydration - half-normal saline; encourage oral fluid hydration Hypokalemia Resolved and supplemented Left-sided contractures with poor functional capacity Physical therapy and occupational therapy No evidence of CVA on CT of brain Stage II sacral ulcer Wound care nurse evaluated patient and continue dressing recommendations ordered Follow clinically Recent C. difficile colitis Asymptomatic, formed stools Add Flagyl due to as restarting antibiotics for urinary tract infection Urinary tract infection with Ray insertion back in Jun 13 - at this time will start oral Keflex And discontinue Ray catheter Vitamin D deficiency Continue vitamin D supplementation as tolerated DVT prophylaxis SCD Discharge Planning Back to SNF when clinically stable Rosey Valenzuela MD Jun 17, 2017 15:23
[2017-06-17 16:45] VITALS: BP 107/22; PULSE 127; RESP 16; TEMP 97; O2SAT 99
[2017-06-17] MEDS: 1/2 NS + KCL 20 MEQ INJ 1,000 ML IV SCH (17:17)
[2017-06-17 20:00] VITALS: BP 98/64; PULSE 110; RESP 18; TEMP 96.9; O2SAT 96
[2017-06-17] MEDS: LACTOBACILLUS ACIDOPHILUS TAB PO SCH (20:36)
[2017-06-18] VITALS: BP 124/80; PULSE 117; RESP 20; TEMP 97.5; O2SAT 94
[2017-06-18] MEDS: CEPHALEXIN MONOHYDRATE 500 MG CAP PO SCH ×3 (05:35→23:00)
[2017-06-18] MEDS: metroNIDAZOLE 500 MG TAB PO SCH ×3 (05:35→23:00)
[2017-06-18 08:00] VITALS: BP 98/57; PULSE 75; RESP 18; TEMP 97.2; O2SAT 95
[2017-06-18] MEDS: SODIUM CHLORIDE 0.9% FLUSH 10 ML FLUSH IV FLUSH SCH ×2 (08:58→21:00)
[2017-06-18] MEDS: predniSONE 10 MG TAB PO SCH (08:58)
[2017-06-18] MEDS: LACTOBACILLUS ACIDOPHILUS TAB PO SCH ×2 (08:58→23:00)
[2017-06-18] MEDS: CARBIDOPA/LEVODOPA 25 MG/100 MG TAB PO SCH ×3 (08:58→18:21)
[2017-06-18] MEDS: HEPARIN SODIUM - SQ 10,000 UNITS/ML VIAL SQ SCH ×2 (08:59→23:01)
[2017-06-18] MEDS: CHOLECALCIFEROL (VIT D3) 5000 UNIT CAP PO SCH (08:59)
[2017-06-18] MEDS: DRONABINOL 2.5 MG CAP PO SCH ×2 (11:00→18:00)
--- NOTE | 2017-06-18 11:50 | HHI.PR ---
Subjective Remarks Patient is more alert and awake and has slightly improved oral intake overnight. She denies any pain at this time. Objective Vitals Vital Signs Date Time Temp Pulse Resp B/P (MAP) Pulse Ox O2 Delivery O2 Flow Rate FiO2 06/18/17 08:00 97.2 75 18 98/57 (71) 95 06/18/17 00:00 97.5 117 20 124/80 (95) 94 06/17/17 20:00 96.9 110 18 98/64 (75) 96 06/17/17 16:45 97.0 127 16 107/22 (50) 99 06/17/17 12:00 98.1 115 18 99/69 (79) 96 I/O 06/17/17 06/17/17 06/17/17 06/18/17 06/18/17 06/18/17 07:00 15:00 23:00 07:00 15:00 23:00 Intake Total 120 ml Output Total 1075 ml 300 ml Balance -1075 ml 120 ml -300 ml Intake Oral 120 ml Output Urine Total 375 ml Stool Total 700 ml 300 ml # Voids 1 Result Diagram: 06/17/17 0358 06/17/17 0358 Other Results Microbiology Date/Time Source Procedure Growth Status 06/11/17 14:10 Blood Peripheral Aerobic Blood Culture - Final NO GROWTH IN 5 DAYS Complete 06/11/17 14:10 Blood Peripheral Anaerobic Blood Culture - Final NO GROWTH IN 5 DAYS Complete 06/14/17 04:00 Urine Catheterized Urine Urine Culture - Final Proteus Mirabilis Klebsiella Pneumoniae Complete Objective Remarks GENERAL: This is a thin patient, in no apparent distress. CARDIOVASCULAR: Regular rate and rhythm RESPIRATORY: Clear to auscultation. Breath sounds equal bilaterally. No wheezes , rales, or rhonchi few bowel sounds Abdomen: Soft nontender Normal active bowel sounds Extremities Atrophic, no edema. NEURO: Confused and not oriented to person or place but did answers certain questions and respond to voice stimuli. Generalized weakness A/P Assessment and Plan Dehydration w/ ARF likely due to poor oral intake and failure to thrive Renal function improving daily with IVF rehydration and oral intake. At this time, will have calorie count along with percentage of meals taken. Will transition patient off IV fluid hydration and give 1 more bag of the D5W with 20Meq of K with continued improved oral intake and repeat lab work in the morning. 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 Appreciate Palliative care consult to assist in determination of goals of this consultation future long-term goals Hypernatremia due to dehydration -D5W; encourage oral fluid hydration Hypokalemia Resolved and supplemented Left-sided contractures with poor functional capacity Physical therapy and occupational therapy No evidence of CVA on CT of brain Stage II sacral ulcer Wound care nurse evaluated patient and continue dressing recommendations ordered Follow clinically Recent C. difficile colitis Asymptomatic, formed stools Add Flagyl due to as restarting antibiotics for urinary tract infection Urinary tract infection with culture results back for Escherichia coli and Klebsiella with Ray insertion back in Jun 13 - at this time will start oral Keflex And discontinue Ray catheter yesterday 06/17 Vitamin D deficiency Continue vitamin D supplementation as tolerated DVT prophylaxis SCD Discharge Planning Back to SNF in the next 1-2 days if patient's oral intake improves. Rosey Valenzuela MD Jun 18, 2017 11:50
[2017-06-18 12:00] VITALS: BP 107/69; PULSE 94; RESP 16; TEMP 95.7; O2SAT 100
[2017-06-18] MEDS ORDERED: D5W + KCL 20 MEQ INJ 1,000 ML IV SCH (14:00)
--- NOTE | 2017-06-18 15:33 | HHI.HCPN ---
Reason for visit a. To assist with evaluation and management of symptoms including: depression and decrease appetite. b. To assist medical decision maker(s) with: better understanding of current medical conditions; weighing benefits/burdens of medical treatment options; making medical treatment decisions. Subjective/Interval History Patient is alert and interactive. State she ate more today, and completed more breakfast. At bedside it appears she dranks some of on supplemental shakes and had apple sauce. Currently on puree diet. She denies pain or any discomfort. She was up in her chair today, and worked with PT. Family/friend interactions Spoke with Daughter Kathy Jeong. answered question on c. diff. Updated her on uti, current treament. Review again with her parkinsonism is part of her differential in her weakness. Review her challenges especially with nutrition. Talked about goc, and that her mom at this point does not want a feeding tube. No further questions. Advance Directives Living Will: Never completed Health Care Surrogate: Never completed Durable Power of Barrel Scraper: Never completed Objective Vital Signs Date Time Temp Pulse Resp B/P (MAP) Pulse Ox O2 Delivery O2 Flow Rate FiO2 06/18/17 12:00 95.7 94 16 107/69 (82) 100 06/18/17 08:00 97.2 75 18 98/57 (71) 95 06/18/17 00:00 97.5 117 20 124/80 (95) 94 06/17/17 20:00 96.9 110 18 98/64 (75) 96 06/17/17 16:45 97.0 127 16 107/22 (50) 99 Intake & Output 06/18/17 06/18/17 07:00 19:00 Intake Total 40 ml Output Total 300 ml Balance -300 ml 40 ml Intake Oral 40 ml Stool Total 300 ml # Voids 1 Physical Exam CONSTITUTIONAL/GENERAL: This is frail lady, laying in bed, no acute distress. SKIN: No jaundice, rashes, or lesions. Ecchymoses on upper extremities. No wounds seen anteriorly. Skin temperature appropriate. Not diaphoretic. HEAD: Atraumatic. Normocephalic. EYES: Pupils equal and round and reactive. Extraocular motions intact. No scleral icterus. No injection or drainage. Fundi not examined. ENT: Hearing grossly normal. Nose without bleeding or purulent drainage. Throat without visible erythema, exudates, masses, or lesions. NECK: Trachea midline. Supple, nontender. No palpable thyroid enlargement or nodularity. CARDIOVASCULAR: Regular rate and rhythm without murmurs, gallops, or rubs. No JVD. Peripheral pulses symmetric. RESPIRATORY/CHEST: Symmetric, unlabored respirations. Clear to auscultation. Breath sounds equal bilaterally. No wheezes, rales, or rhonchi. GASTROINTESTINAL: Abdomen soft, non-tender, nondistended. No hepato-splenomegaly , or palpable masses. No guarding. Bowel sounds present. GENITOURINARY: Without palpable bladder distension. Ray catheter in place. MUSCULOSKELETAL: Extremities without clubbing, cyanosis, or edema. No joint tenderness or effusion noted. . No mottling or clubbing. Moves all extremity but weak. LYMPHATICS: No palpable cervical or supraclavicular adenopathy. NEUROLOGICAL: Awake and alert. Motor and sensory grossly within normal limits. Follows commands. Cognitively sharp. Moves all extremities 3/5 weakness all ext. PSYCHIATRIC: No obvious anxiety/depression. no apparent hallucinations or other psychotic thought process. Diagnostic Tests Laboratory Laboratory Tests Test 06/17/17 03:58 White Blood Count 8.6 TH/MM3 (4.0-11.0) Red Blood Count 4.05 MIL/MM3 (4.00-5.30) Hemoglobin 11.8 GM/DL (11.6-15.3) Hematocrit 36.0 % (35.0-46.0) Mean Corpuscular Volume 88.9 FL (80.0-100.0) Mean Corpuscular Hemoglobin 29.1 PG (27.0-34.0) Mean Corpuscular Hemoglobin Concent 32.7 % (32.0-36.0) Red Cell Distribution Width 17.3 % (11.6-17.2) Platelet Count 185 TH/MM3 (150-450) Mean Platelet Volume 9.2 FL (7.0-11.0) Neutrophils (%) (Auto) 79.7 % (16.0-70.0) Lymphocytes (%) (Auto) 9.3 % (9.0-44.0) Monocytes (%) (Auto) 10.5 % (0.0-8.0) Eosinophils (%) (Auto) 0.3 % (0.0-4.0) Basophils (%) (Auto) 0.2 % (0.0-2.0) Neutrophils # (Auto) 6.9 TH/MM3 (1.8-7.7) Lymphocytes # (Auto) 0.8 TH/MM3 (1.0-4.8) Monocytes # (Auto) 0.9 TH/MM3 (0-0.9) Eosinophils # (Auto) 0.0 TH/MM3 (0-0.4) Basophils # (Auto) 0.0 TH/MM3 (0-0.2) CBC Comment AUTO DIFF Differential Total Cells Counted 100 Neutrophils % (Manual) 78 % (16-70) Band Neutrophils % 4 % (0-6) Lymphocytes % 7 % (9-44) Monocytes % 8 % (0-8) Neutrophils # (Manual) 7.3 TH/MM3 (1.8-7.7) Metamyelocytes 3 % (0-1) Differential Comment FINAL DIFF MANUAL Platelet Estimate NORMAL (NORMAL) Platelet Morphology Comment NORMAL (NORMAL) Ovalocytes 1+ (NORMAL) Helmet Cells OCC (NORMAL) Acanthocytes OCC (NORMAL) Blood Urea Nitrogen 32 MG/DL (7-18) Creatinine 1.17 MG/DL (0.50-1.00) Random Glucose 68 MG/DL (74-106) Calcium Level 9.4 MG/DL (8.5-10.1) Sodium Level 147 MEQ/L (136-145) Potassium Level 3.9 MEQ/L (3.5-5.1) Chloride Level 118 MEQ/L (98-107) Carbon Dioxide Level 18.9 MEQ/L (21.0-32.0) Anion Gap 10 MEQ/L (5-15) Estimat Glomerular Filtration Rate 55 ML/MIN (>89) Result Diagram: 06/17/17 0358 06/17/17 0358 Imaging Last Impressions Renal Ultrasound 06/11/17 0000 Signed Impressions: Service Date/Time: Sunday, June 11, 2017 17:30 - CONCLUSION: 1. Mild echogenic kidneys characteristic of medical renal disease. Small renal calcifications. Delonte Gonzalez MD Head CT 06/11/17 0000 Signed Impressions: Service Date/Time: Sunday, June 11, 2017 20:44 - CONCLUSION: 1. No acute intracranial abnormalities. Delonte Gonzalez MD Abdomen X-Ray 06/11/17 0000 Signed Impressions: Service Date/Time: Sunday, June 11, 2017 17:12 - CONCLUSION: Limited examination with no obvious obstruction or pneumoperitoneum. Lung bases are clear. Eduardo Rosas MD Assessment and Plan Disease Oriented Problem List: (1) Parkinsonian features (2) Rheumatoid arthritis (3) Acute kidney insufficiency (4) Malnutrition Symptom Scale: (1) Malnutrition 0-10 Scale: Unable to quantify (2) Pain 0-10 Scale: 0 (denies pain currently, but has hx of rhematoid arthritis.) Pertinent Non-Medical Issues Psychosocial: have been debiliated by rhematoid arthritis for years and could not work. Spiritual:did not address this visit. Legal: health care proxy are daughters Kathy Jeong [phone] Daughter. Courtney Bajwa [phone] Daughter Ethical issues impacting care:not at the current time Important Contacts Kathy Jeong [phone] Daughter. Courtney Bajwa [phone] Daughter Prognosis 72 year old with mal- nutrition and possibly untreated parkinsonian features- Neuromuscularlly since starting sinemet, pt motor function, speech has improved as documented by attending physicians. Nutrition remains a challenge. Prognosis is guarded and remains to see how much of a rebound pt will have after continue titration of sinemet. Code Status: Full Code Plan == capacity-pt has capacity to make medical decisions.. == code: Full code; no trach or peg. == Health care proxy: Pt not , has 2 children. pt's daughters would be health care proxy. == Symptoms:malturition- likely multifactorial- undiagosed parkingsonian syndrome/ depression from chronic illness. Continue marinol for now. I will inform nursing that pt has parkinsonism syndrome and pt would need assistance with feeding. depression- had told daughter she wanted to privately. Could there be undiagnosed depression from chronic illness? At this time mother, daughter decline and psych evaluation. == Goals of care are the follows, have not changed 06/18/2017 * concept of hospice was introduce to daughter, especially if nutritionally pt does not rebound. * Patient has had worsening neuromusuclarly/ functionally for the past few months,and has had changes in gait and near falls. Patient however, after Sinemet initiated this hospitalization, did have some respond, and had better speech, became more alert. Sacral wound happened after pt has developed c.diff diarreah and skin breakdown since last hospitalization. Daughter at this point would see if further titration and follow up with neurology with titration of sinemet can improve her clinical condition. She was living independenly prior, but has had gain changes and near falls. Is her functional decline due to undiagnosed parkingsons? * It appears there may be some depression, which also may contribute to her lack of appetite. Daughter wants to talk with patient, before psychiatry consult is placed. * Pt does not want feeding tube if it gets to that point. * Full Code for the time being, but no trach or peg. * Pt does not want to complete healthcare surrogate or living will at this time. == Palliative Care will continue to follow and review goals of care, and make recommendation on symptom managment as clinical condition evolves. Attestation To help prompt me to consider important information that might be impacting today's encounter and assessment, information from prior notes written by myself or my colleagues may have been "brought forward" into today's note. My signature on this note, however, is an attestation that I personally performed the exam, history, and/or decision-making noted today, and, unless otherwise indicated, the interactions with patient, family, and staff as well as the review of records all occurred today. I also attest that the listed assessment and stated plan reflect my best clinical judgment today based on the combination of historical information, prior notes, and today's exam/ interactions. When time spent is documented, it refers only to time spent today by the signer, or if indicated, combined time spent today by collaborating physician/nurse practitioner. Rikki Mera MD Jun 18, 2017 15:33
[2017-06-18 16:00] VITALS: BP 118/71; PULSE 99; RESP 16; TEMP 96.6; O2SAT 100
--- NOTE | 2017-06-18 16:30 | HHI.PR ---
Review/Management Daily Summary 06/18 she appeared less rigid today and had no tremor being cleaned, spoke with her RN some nausea, ?sec to sinemet very frail and malnourished as before continue sinemet, medical care/nutrition and comfort please call prn Subjective Subjective Comments No acute events reported being cleaned when i walked in Active Medications Current Medications Medications (Trade) Dose Ordered Sig/Melinda Route Start Time Stop Time Status Last Admin (NS Flush) 2 ml UNSCH PRN IV FLUSH 06/11/17 17:00 (NS Flush) 2 ml BID IV FLUSH 06/11/17 21:00 06/14/17 20:27 (Narcan Inj) 0.4 mg UNSCH PRN IV PUSH 06/11/17 17:00 (Milk Of Magnesia Liq) 30 ml Q12H PRN PO 06/11/17 17:00 (Senokot) 17.2 mg Q12H PRN PO 06/11/17 17:00 (Dulcolax Supp) 10 mg DAILY PRN RECTAL 06/11/17 17:00 (Lactulose Liq) 30 ml DAILY PRN PO 06/11/17 17:00 (Deltasone) 10 mg DAILY PO 06/12/17 09:00 06/18/17 08:58 (Vitamin D3) 5,000 units DAILY PO 06/12/17 09:00 06/18/17 08:59 (Zofran Inj) 4 mg Q6HR PRN IV PUSH 06/11/17 18:00 (Heparin Inj) 5,000 units Q12HR SQ 06/11/17 21:00 06/18/17 08:59 (Tylenol) 650 mg Q4H PRN PO 06/14/17 11:00 06/16/17 16:12 (Marinol) 2.5 mg BID@11,16 PO 06/16/17 11:00 06/18/17 11:00 (Keflex) 500 mg Q8HR PO 06/17/17 14:00 06/18/17 13:47 (Flagyl) 500 mg Q8HR PO 06/17/17 14:00 06/18/17 13:47 (Lactinex) 1 tab Q12HR PO 06/17/17 21:00 06/18/17 08:58 Potassium Chloride/Dextrose 1,000 ml @ 60 mls/hr [id number] IV 06/18/17 14:00 06/19/17 06:39 (Sinemet 25-100 Mg) 1 tab TID PO 06/18/17 13:00 06/18/17 13:00 Allergies Allergies Coded Allergies iodine (Verified Allergy, Severe, 06/11/17) Exam I&O / VS 06/18/17 06/18/17 06/19/17 14:59 22:59 06:59 Intake Total 40 ml Balance 40 ml Intake Oral 40 ml Vital Signs Date Time Temp Pulse Resp B/P (MAP) Pulse Ox O2 Delivery O2 Flow Rate FiO2 06/18/17 12:00 95.7 94 16 107/69 (82) 100 06/18/17 08:00 97.2 75 18 98/57 (71) 95 06/18/17 00:00 97.5 117 20 124/80 (95) 94 06/17/17 20:00 96.9 110 18 98/64 (75) 96 06/17/17 16:45 97.0 127 16 107/22 (50) 99 Objective Micro and Labs Date/Time Source Procedure Growth Status 06/11/17 14:10 Blood Peripheral Aerobic Blood Culture - Final NO GROWTH IN 5 DAYS Complete 06/11/17 14:10 Blood Peripheral Anaerobic Blood Culture - Final NO GROWTH IN 5 DAYS Complete 06/14/17 04:00 Urine Catheterized Urine Urine Culture - Final Proteus Mirabilis Klebsiella Pneumoniae Complete Rick Daniels MD Jun 18, 2017 16:30
[2017-06-18 20:00] VITALS: BP 112/77; PULSE 121; RESP 18; TEMP 96.9; O2SAT 100
[2017-06-19] VITALS: BP 111/76; PULSE 110; RESP 18; TEMP 98.2; O2SAT 100
[2017-06-19] MEDS: CEPHALEXIN MONOHYDRATE 500 MG CAP PO SCH ×3 (05:41→21:34)
[2017-06-19] MEDS: metroNIDAZOLE 500 MG TAB PO SCH ×3 (05:41→21:34)
[2017-06-19 05:55] VITALS: BP 93/62; PULSE 115; RESP 18; TEMP 98.6; O2SAT 100
[2017-06-19 08:00] VITALS: BP 90/57; PULSE 114; RESP 17; TEMP 97.4; O2SAT 99
[2017-06-19] MEDS: SODIUM CHLORIDE 0.9% FLUSH 10 ML FLUSH IV FLUSH SCH ×2 (09:00→21:33)
[2017-06-19] MEDS ORDERED: METOCLOPRAMIDE HCL 10 MG/2 ML VIAL IV PUSH PRN (10:15)
[2017-06-19] MEDS ORDERED: LACTULOSE SYRUP 20 GM/30 ML CUP PO PRN (10:15)
[2017-06-19] MEDS ORDERED: ACETAMINOPHEN 325 MG TAB PO PRN ×2 (10:15)
[2017-06-19] MEDS ORDERED: SODIUM CHLORIDE 0.9% FLUSH 10 ML FLUSH IV FLUSH PRN (10:15)
[2017-06-19] MEDS ORDERED: oxyCODONE/ACETAMINOPHEN 5 MG/325 MG TAB PO PRN (10:15)
[2017-06-19] MEDS ORDERED: ONDANSETRON HCL 4 MG/2 ML VIAL IVP PRN (10:15)
[2017-06-19] MEDS ORDERED: SENNOSIDES 8.6 MG TAB PO PRN (10:15)
[2017-06-19] MEDS ORDERED: BISACODYL 10 MG SUPP RECTAL PRN (10:15)
[2017-06-19] MEDS ORDERED: MORPHINE SULFATE 4 MG/ML INJ IV PUSH PRN ×3 (10:15)
[2017-06-19] MEDS ORDERED: MAGNESIUM HYDROXIDE SUSP 30 ML CUP PO PRN (10:15)
[2017-06-19] MEDS ORDERED: MORPHINE SULFATE 2 MG/ML INJ IV PUSH PRN (10:15)
[2017-06-19] MEDS ORDERED: NALOXONE HCL 0.4 MG/ML AMP IV PUSH PRN (10:15)
[2017-06-19] MEDS: DRONABINOL 2.5 MG CAP PO SCH (10:20)
[2017-06-19] MEDS: HEPARIN SODIUM - SQ 10,000 UNITS/ML VIAL SQ SCH ×2 (10:21→21:48)
[2017-06-19] MEDS: CHOLECALCIFEROL (VIT D3) 5000 UNIT CAP PO SCH (10:21)
[2017-06-19] MEDS: LACTOBACILLUS ACIDOPHILUS TAB PO SCH ×2 (10:21→21:34)
[2017-06-19] MEDS: predniSONE 10 MG TAB PO SCH (10:21)
[2017-06-19] MEDS: CARBIDOPA/LEVODOPA 25 MG/100 MG TAB PO SCH ×3 (10:21→18:38)
[2017-06-19 12:00] VITALS: BP 110/71; PULSE 125; RESP 19; TEMP 98.8; O2SAT 100
--- NOTE | 2017-06-19 12:14 | HHI.PR ---
Subjective Remarks Monitor oral intake Very poor oral intake Increase Marinol Objective Vitals Vital Signs Date Time Temp Pulse Resp B/P (MAP) Pulse Ox O2 Delivery O2 Flow Rate FiO2 06/19/17 08:00 97.4 114 17 90/57 (68) 99 06/19/17 05:55 98.6 115 18 93/62 (72) 100 06/19/17 00:00 98.2 110 18 111/76 (88) 100 06/18/17 20:00 96.9 121 18 112/77 (89) 100 06/18/17 16:00 96.6 99 16 118/71 (87) 100 I/O 06/18/17 06/18/17 06/18/17 06/19/17 06/19/17 06/19/17 07:00 15:00 23:00 07:00 15:00 23:00 Intake Total 520 ml 240 ml 1000 ml Output Total 300 ml Balance -300 ml 520 ml 240 ml 1000 ml Intake Oral 520 ml 240 ml IV Total 1000 ml Stool Total 300 ml # Voids 1 1 3 # Bowel Movements 1 Result Diagram: 06/17/17 0358 06/17/17 0358 Other Results Laboratory Tests Test 06/17/17 03:58 White Blood Count 8.6 TH/MM3 Red Blood Count 4.05 MIL/MM3 Hemoglobin 11.8 GM/DL Hematocrit 36.0 % Mean Corpuscular Volume 88.9 FL Mean Corpuscular Hemoglobin 29.1 PG Mean Corpuscular Hemoglobin Concent 32.7 % Red Cell Distribution Width 17.3 % Platelet Count 185 TH/MM3 Mean Platelet Volume 9.2 FL Neutrophils (%) (Auto) 79.7 % Lymphocytes (%) (Auto) 9.3 % Monocytes (%) (Auto) 10.5 % Eosinophils (%) (Auto) 0.3 % Basophils (%) (Auto) 0.2 % Neutrophils # (Auto) 6.9 TH/MM3 Lymphocytes # (Auto) 0.8 TH/MM3 Monocytes # (Auto) 0.9 TH/MM3 Eosinophils # (Auto) 0.0 TH/MM3 Basophils # (Auto) 0.0 TH/MM3 CBC Comment AUTO DIFF Differential Total Cells Counted 100 Neutrophils % (Manual) 78 % Band Neutrophils % 4 % Lymphocytes % 7 % Monocytes % 8 % Neutrophils # (Manual) 7.3 TH/MM3 Metamyelocytes 3 % Differential Comment FINAL DIFF MANUAL Platelet Estimate NORMAL Platelet Morphology Comment NORMAL Ovalocytes 1+ Helmet Cells OCC Acanthocytes OCC Blood Urea Nitrogen 32 MG/DL Creatinine 1.17 MG/DL Random Glucose 68 MG/DL Calcium Level 9.4 MG/DL Sodium Level 147 MEQ/L Potassium Level 3.9 MEQ/L Chloride Level 118 MEQ/L Carbon Dioxide Level 18.9 MEQ/L Anion Gap 10 MEQ/L Estimat Glomerular Filtration Rate 55 ML/MIN Imaging Last Impressions Renal Ultrasound 06/11/17 0000 Signed Impressions: Service Date/Time: Sunday, June 11, 2017 17:30 - CONCLUSION: 1. Mild echogenic kidneys characteristic of medical renal disease. Small renal calcifications. Delonte Gonzalez MD Head CT 06/11/17 0000 Signed Impressions: Service Date/Time: Sunday, June 11, 2017 20:44 - CONCLUSION: 1. No acute intracranial abnormalities. Delonte Gonzalez MD Abdomen X-Ray 06/11/17 0000 Signed Impressions: Service Date/Time: Sunday, June 11, 2017 17:12 - CONCLUSION: Limited examination with no obvious obstruction or pneumoperitoneum. Lung bases are clear. Eduardo Rosas MD Objective Remarks GENERAL: Awake alert and oriented talkative and cooperative SKIN: Warm and dry. HEAD: Atraumatic. Normocephalic. EYES: Pupils equal and round. No scleral icterus. No injection or drainage. Extraocular muscles intact ENT: No nasal bleeding or discharge. Mucous membranes pink and moist. NECK: Trachea midline. No JVD. Supple CARDIOVASCULAR: Regular rate and rhythm. S1 and S2 no S3-S4 RESPIRATORY: No accessory muscle use. Clear to auscultation. Breath sounds equal bilaterally. GASTROINTESTINAL: Abdomen soft, non-tender, nondistended. Hepatic and splenic margins not palpable. MUSCULOSKELETAL: Extremities without clubbing, cyanosis, or edema. No obvious deformities. NEUROLOGICAL: Awake and alert. No obvious cranial nerve deficits. Motor grossly within normal limits. Five out of 5 muscle strength in the arms and legs. Normal speech. Generalized weakness PSYCHIATRIC: Appropriate mood and affect; insight and judgment normal. Medications and IVs Current Medications Sodium Chloride (NS Flush) 2 ml UNSCH PRN IV FLUSH FLUSH AFTER USING IV ACCESS ; Start 06/11/17 at 12:45; Stop 06/15/17 at 13:11; Status DC Sodium Chloride 1,000 ml @ 1,000 mls/hr Q1H ONCE IV Last administered on at 14:37; Start 06/11/17 at 12:48; Stop 06/11/17 at 13:47; Status DC Sodium Chloride 800 ml @ 1,000 mls/hr Q48M ONCE IV Last administered on at 14:38; Start 06/11/17 at 12:48; Stop 06/11/17 at 13:35; Status DC Sodium Chloride 1,000 ml @ 100 mls/hr Q10H IV ; Start 06/11/17 at 16:47; Stop 06/11/17 at 17:45; Status DC Sodium Chloride (NS Flush) 2 ml UNSCH PRN IV FLUSH FLUSH AFTER USING IV ACCESS ; Start 06/11/17 at 17:00 Sodium Chloride (NS Flush) 2 ml BID IV FLUSH Last administered on 06/14/17at 20: 27; Start 06/11/17 at 21:00 Naloxone HCl (Narcan Inj) 0.4 mg UNSCH PRN IV PUSH SEE LABEL COMMENTS; Start at 17:00 Magnesium Hydroxide (Milk Of Magnesia Liq) 30 ml Q12H PRN PO Mild constipation ; Start 06/11/17 at 17:00 Sennosides (Senokot) 17.2 mg Q12H PRN PO Moderate constipation; Start 06/11/17 at 17:00 Bisacodyl (Dulcolax Supp) 10 mg DAILY PRN RECTAL SEVERE CONSITIPATION; Start at 17:00 Lactulose (Lactulose Liq) 30 ml DAILY PRN PO SEVERE CONSITIPATION; Start at 17:00 Hydrocortisone Sodium Succinate (SoluCORTEF INJ) 50 mg ONCE ONCE IV PUSH Last administered on 06/11/17at 19:38; Start 06/11/17 at 17:00; Stop 06/11/17 at 17:02 ; Status DC Prednisone (Deltasone) 10 mg DAILY PO Last administered on 06/19/17at 10:21; Start 06/12/17 at 09:00 Sodium Bicarbonate 75 meq/Sodium Chloride 1,075 ml @ 100 mls/hr [id number] IV Last administered on 06/11/17at 21:38; Start 06/11/17 at 17:45; Stop 06/12/17 at 11:25; Status DC Cholecalciferol (Vitamin D3) 25,000 units ONCE ONCE PO ; Start 06/11/17 at 18: 00; Stop 06/11/17 at 18:10; Status DC Cholecalciferol (Vitamin D3) 5,000 units DAILY PO Last administered on at 10:21; Start 06/12/17 at 09:00 Ondansetron HCl (Zofran Inj) 4 mg Q6HR PRN IV PUSH NAUSEA; Start 06/11/17 at 18 :00 Heparin Sodium (Porcine) (Heparin Inj) 5,000 units Q12HR SQ Last administered on 06/19/17at 10:21; Start 06/11/17 at 21:00 Sodium Bicarbonate 75 meq/Dextrose/ Sodium Chloride 1,075 ml @ 100 mls/hr [id number] IV Last administered on 06/13/17at 10:45; Start 06/12/17 at 11:30; Stop 06/13/17 at 17:39; Status DC Potassium Chloride 100 ml @ 50 mls/hr ONCE ONCE IV Last administered on at 11:31; Start 06/13/17 at 11:15; Stop 06/13/17 at 13:14; Status DC Sodium Chloride 250 ml @ 125 mls/hr Q2H IV ; Start 06/13/17 at 12:45; Stop at 17:39; Status DC Carbidopa/Levodopa (Sinemet 25-100 Mg) 1 tab Q12HR PO Last administered on at 08:58; Start 06/13/17 at 13:00; Stop 06/18/17 at 11:47; Status DC Dextrose 1,000 ml @ 60 mls/hr [id number] IV Last administered on 06/13/17at 18:37 ; Start 06/13/17 at 17:45; Stop 06/18/17 at 11:36; Status DC Acetaminophen (Tylenol) 650 mg Q4H PRN PO pain 1-10 Last administered on at 16:12; Start 06/14/17 at 11:00; Stop 06/19/17 at 10:52; Status DC Potassium Chloride/Sodium Chloride 1,000 ml @ 42 mls/hr [id number] IV Last administered on 06/15/17at 09:20; Start 06/14/17 at 11:00; Stop 06/15/17 at 13:16 ; Status DC Potassium Chloride/Sodium Chloride 1,000 ml @ 42 mls/hr [id number] IV Last administered on 06/17/17at 17:17; Start 06/15/17 at 14:00; Stop 06/18/17 at 11:35; Status DC Dronabinol (Marinol) 2.5 mg BID@11,16 PO Last administered on 06/19/17at 10:20; Start 06/16/17 at 11:00 Acetaminophen/ Hydrocodone Bitart ([place] 5-325 Mg) 1 tab ONCE ONCE PO Last administered on 06/16/17at 13:22; Start 06/16/17 at 12:00; Stop 06/16/17 at 12:01 ; Status DC Cephalexin Monohydrate (Keflex) 500 mg Q8HR PO Last administered on 06/19/17at 05 :41; Start 06/17/17 at 14:00 Metronidazole (Flagyl) 500 mg Q8HR PO Last administered on 06/19/17at 05:41; Start 06/17/17 at 14:00 Lactobacillus Acidophilus (Lactinex) 1 tab Q12HR PO Last administered on 10:21; Start 06/17/17 at 21:00 Potassium Chloride/Dextrose 1,000 ml @ 60 mls/hr [id number] IV Last administered on 06/18/17at 18:21; Start 06/18/17 at 14:00; Stop 06/19/17 at 06:39; Status DC Carbidopa/Levodopa (Sinemet 25-100 Mg) 1 tab TID PO Last administered on at 10:21; Start 06/18/17 at 13:00 Sodium Chloride (NS Flush) 2 ml UNSCH PRN IV FLUSH FLUSH AFTER USING IV ACCESS ; Start 06/19/17 at 10:15; Stop 06/19/17 at 10:46; Status DC Sodium Chloride (NS Flush) 2 ml BID IV FLUSH ; Start 06/19/17 at 21:00; Stop 06/19 at 21:00; Status DC Acetaminophen (Tylenol) 650 mg Q4H PRN PO TEMP > 100.4; Start 06/19/17 at 10:15 Ondansetron HCl (Zofran Inj) 4 mg Q6H PRN IVP NAUSEA OR VOMITING; Start at 10:15; Stop 06/19/17 at 10:46; Status DC Metoclopramide HCl (Reglan Inj) 5 mg Q6H PRN IV PUSH NAUSEA OR VOMITING; Start 06/19/17 at 10:15 Acetaminophen (Tylenol) 650 mg Q6H PRN PO PAIN SCALE 1 TO 2; Start 06/19/17 at 10:15 Oxycodone/ Acetaminophen (Percocet 5-325 Mg) 1 tab Q6H PRN PO PAIN SCALE 3 TO 5; Start 06/19/17 at 10:15 Oxycodone/ Acetaminophen (Percocet 10-325 Mg) 1 tab Q6H PRN PO PAIN SCALE 6 TO 10; Start 06/19/17 at 10:15 Morphine Sulfate (Morphine Inj) 2 mg Q3H PRN IV PUSH Pain 3-5; if unable to take PO; Start 06/19/17 at 10:15 Morphine Sulfate (Morphine Inj) 4 mg Q3H PRN IV PUSH Pain 6-10;if unable to take PO; Start 06/19/17 at 10:15 Morphine Sulfate (Morphine Inj) 4 mg Q1H PRN IV PUSH PAIN SCALE 7-10 ( INTRACTABLE); Start 06/19/17 at 10:15 Morphine Sulfate (Morphine Inj) 4 mg Q3H PRN IV PUSH BREAKTHROUGH PAIN; Start 06/19/17 at 10:15 Naloxone HCl (Narcan Inj) 0.4 mg UNSCH PRN IV PUSH SEE LABEL COMMENTS; Start at 10:15; Stop 06/19/17 at 10:46; Status DC Senna/Docusate Sodium (Dawn-Colace) 1 tab BID PO ; Start 06/19/17 at 21:00 Magnesium Hydroxide (Milk Of Magnesia Liq) 30 ml Q12H PRN PO Mild constipation ; Start 06/19/17 at 10:15; Stop 06/19/17 at 10:46; Status DC Sennosides (Senokot) 17.2 mg Q12H PRN PO Moderate constipation; Start 06/19/17 at 10:15; Stop 06/19/17 at 10:46; Status DC Bisacodyl (Dulcolax Supp) 10 mg DAILY PRN RECTAL SEVERE CONSITIPATION; Start at 10:15; Stop 06/19/17 at 10:52; Status DC Lactulose (Lactulose Liq) 30 ml DAILY PRN PO SEVERE CONSITIPATION; Start at 10:15; Stop 06/19/17 at 10:46; Status DC A/P Assessment and Plan Assessment and Plan Dehydration w/ ARF likely due to poor oral intake and failure to thrive Renal function improving daily with IVF rehydration and oral intake. At this time, will have calorie count along with percentage of meals taken. Will transition patient off IV fluid hydration and give 1 more bag of the D5W with 20Meq of K with continued improved oral intake and repeat lab work in the morning. 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 Appreciate Palliative care consult to assist in determination of goals of this consultation future long-term goals Increase Marinol TO 5 mg by mouth twice a day Hypernatremia due to dehydration -D5W; encourage oral fluid hydration Hypokalemia Resolved and supplemented Left-sided contractures with poor functional capacity Physical therapy and occupational therapy No evidence of CVA on CT of brain Stage II sacral ulcer Wound care nurse evaluated patient and continue dressing recommendations ordered Follow clinically Recent C. difficile colitis Asymptomatic, formed stools Add Flagyl due to as restarting antibiotics for urinary tract infection Urinary tract infection with culture results back for Escherichia coli and Klebsiella with Ray insertion back in Jun 13 - at this time will start oral Keflex And discontinue Ray catheter yesterday 2/ Vitamin D deficiency Continue vitamin D supplementation as tolerated DVT prophylaxis SCD A.m. labs she's get physical therapy and and occupational Discharge Planning CAN DC TO SNF IN NEXT FEW DAYS Jose Clifton DO Jun 19, 2017 12:14
[2017-06-19 16:00] VITALS: BP 117/72; PULSE 115; RESP 18; TEMP 96.8; O2SAT 98
[2017-06-19 16:03] LABS: BICARBONATE 16.4 MEQ/L (21.0-32.0); CALCIUM 9.6 MG/DL (8.5-10.1); CREATININE 0.88 MG/DL (0.50-1.00)
[2017-06-19] MEDS: DRONABINOL 5 MG CAP PO SCH (18:38)
[2017-06-19 20:00] VITALS: BP 125/72; PULSE 133; RESP 18; TEMP 97; O2SAT 99
[2017-06-19] MEDS ORDERED: SODIUM CHLORIDE 0.9% FLUSH 10 ML FLUSH IV FLUSH SCH (21:00)
[2017-06-19] MEDS: DOCUSATE SODIUM 50 MG/SENNA 8.6 MG TAB PO SCH (21:34)
[2017-06-20] VITALS: BP 115/69; PULSE 125; RESP 18; TEMP 98.1; O2SAT 99
[2017-06-20 04:00] VITALS: BP 115/72; PULSE 119; RESP 18; TEMP 97.7; O2SAT 100
[2017-06-20] MEDS: metroNIDAZOLE 500 MG TAB PO SCH (06:00)
[2017-06-20] MEDS: CEPHALEXIN MONOHYDRATE 500 MG CAP PO SCH ×3 (06:00→20:57)
[2017-06-20 06:36] LABS: AUTOMATED NEUTROPHIL # 12.7 TH/MM3 (1.8-7.7); BASOPHIL % 0.3 % (0.0-2.0); EOSINOPHIL # 0.1 TH/MM3 (0-0.4); HEMATOCRIT 35.2 % (35.0-46.0); HEMOGLOBIN 11.5 GM/DL (11.6-15.3); LYMPH % 8.6 % (9.0-44.0); LYMPHOCYTE # 1.3 TH/MM3 (1.0-4.8); MEAN CELL VOLUME 87.4 FL (80.0-100.0); MEAN CORPUSCULAR HEMOGLOBIN 28.6 PG (27.0-34.0); MEAN CORPUSCULAR HGB CONC 32.7 % (32.0-36.0); MEAN PLATELET VOLUME 8.8 FL (7.0-11.0); MONO % 6.1 % (0.0-8.0); MONOCYTE # 0.9 TH/MM3 (0-0.9); PLATELET COUNT 251 TH/MM3 (150-450); RED BLOOD COUNT 4.03 MIL/MM3 (4.00-5.30); WHITE BLOOD COUNT 15.1 TH/MM3 (4.0-11.0)
[2017-06-20 07:03] LABS: ALBUMIN 2.4 GM/DL (3.4-5.0); ALKALINE PHOSPHATASE 62 U/L (45-117); ALT (GPT) LESS THAN 6 U/L (10-53); AST (GOT) 20 U/L (15-37); BICARBONATE 15.8 MEQ/L (21.0-32.0); BLOOD UREA NITROGEN 16 MG/DL (7-18); CALCIUM 9.5 MG/DL (8.5-10.1); CHLORIDE 112 MEQ/L (98-107); CREATININE 0.79 MG/DL (0.50-1.00); FREE T4 1.45 NG/DL (0.76-1.46); GLOMERULAR FILTRATION RATE 87 ML/MIN (>89); GLUCOSE,RANDOM 81 MG/DL (74-106); MAGNESIUM 1.3 MG/DL (1.5-2.5); PHOSPHORUS 1.7 MG/DL (2.5-4.9); SODIUM (NA) 141 MEQ/L (136-145); TOTAL BILIRUBIN ADULT 0.3 MG/DL (0.2-1.0); TOTAL PROTEIN 6.2 GM/DL (6.4-8.2)
[2017-06-20 08:00] VITALS: BP 100/76; PULSE 127; RESP 16; TEMP 97.7; O2SAT 98
[2017-06-20] MEDS ORDERED: POTASSIUM CHLORIDE 25 MEQ EFFERVESCENT TAB PO ONE (08:45)
[2017-06-20] MEDS: DOCUSATE SODIUM 50 MG/SENNA 8.6 MG TAB PO SCH (09:00)
[2017-06-20] MEDS: CARBIDOPA/LEVODOPA 25 MG/100 MG TAB PO SCH ×3 (09:38→18:24)
[2017-06-20] MEDS: HEPARIN SODIUM - SQ 10,000 UNITS/ML VIAL SQ SCH ×2 (09:38→20:36)
[2017-06-20] MEDS: predniSONE 10 MG TAB PO SCH (09:38)
[2017-06-20] MEDS: CHOLECALCIFEROL (VIT D3) 5000 UNIT CAP PO SCH (09:38)
[2017-06-20] MEDS: LACTOBACILLUS ACIDOPHILUS TAB PO SCH ×2 (09:38→20:36)
[2017-06-20] MEDS: SODIUM CHLORIDE 0.9% FLUSH 10 ML FLUSH IV FLUSH SCH ×2 (09:39→20:58)
[2017-06-20 09:54] LABS: BANDS 6 % (0-6); LYMPHOCYTES 11 % (9-44); METAMYELOCYTES 3 % (0-1); MONOCYTES 5 % (0-8); NEUTROPHIL # MANUAL DIFF 12.5 TH/MM3 (1.8-7.7); OVALOCYTES 1+ (NORMAL); POLYS (SEG NEUTROPHILS) 74 % (16-70)
--- NOTE | 2017-06-20 10:17 | HHI.PR ---
Subjective Remarks 2-3Monitor oral intake Very poor oral intake Increase Marinol 2-4 STILL HAVING DIARRHEA WILL CHANGE TO ORAL VANCO 250 Q6H INCREASE DIET AM LABS HOLD MEDS FOR CONSTIPATION REPLACE POTASSIUM NEEDS TO EAT BETTER Objective Vitals Vital Signs Date Time Temp Pulse Resp B/P (MAP) Pulse Ox O2 Delivery O2 Flow Rate FiO2 06/20/17 08:00 97.7 127 16 100/76 (84) 98 06/20/17 04:00 97.7 119 18 115/72 (86) 100 06/20/17 00:00 98.1 125 18 115/69 (84) 99 06/19/17 20:00 97.0 133 18 125/72 (89) 99 06/19/17 16:00 96.8 115 18 117/72 (87) 98 06/19/17 12:00 98.8 125 19 110/71 (84) 100 I/O 06/19/17 06/19/17 06/19/17 06/20/17 06/20/17 06/20/17 07:00 15:00 23:00 07:00 15:00 23:00 Intake Total 240 ml 1000 ml 415 ml 0 ml Output Total 1502 ml 700 ml Balance 240 ml 1000 ml -1087 ml -700 ml Intake Oral 240 ml 415 ml 0 ml IV Total 1000 ml Output Urine Total 2 ml Stool Total 1500 ml 700 ml # Voids 3 1 Result Diagram: 06/20/17 0434 06/20/17 0434 Other Results Laboratory Tests Test 06/19/17 15:08 06/20/17 04:34 Blood Urea Nitrogen 19 MG/DL 16 MG/DL Creatinine 0.88 MG/DL 0.79 MG/DL Random Glucose 112 MG/DL 81 MG/DL Calcium Level 9.6 MG/DL 9.5 MG/DL Sodium Level 139 MEQ/L 141 MEQ/L Potassium Level 3.5 MEQ/L 3.3 MEQ/L Chloride Level 112 MEQ/L 112 MEQ/L Carbon Dioxide Level 16.4 MEQ/L 15.8 MEQ/L Anion Gap 11 MEQ/L 13 MEQ/L Estimat Glomerular Filtration Rate 77 ML/MIN 87 ML/MIN White Blood Count 15.1 TH/MM3 Red Blood Count 4.03 MIL/MM3 Hemoglobin 11.5 GM/DL Hematocrit 35.2 % Mean Corpuscular Volume 87.4 FL Mean Corpuscular Hemoglobin 28.6 PG Mean Corpuscular Hemoglobin Concent 32.7 % Red Cell Distribution Width 17.0 % Platelet Count 251 TH/MM3 Mean Platelet Volume 8.8 FL Neutrophils (%) (Auto) 84.0 % Lymphocytes (%) (Auto) 8.6 % Monocytes (%) (Auto) 6.1 % Eosinophils (%) (Auto) 1.0 % Basophils (%) (Auto) 0.3 % Neutrophils # (Auto) 12.7 TH/MM3 Lymphocytes # (Auto) 1.3 TH/MM3 Monocytes # (Auto) 0.9 TH/MM3 Eosinophils # (Auto) 0.1 TH/MM3 Basophils # (Auto) 0.0 TH/MM3 CBC Comment AUTO DIFF Differential Total Cells Counted 100 Neutrophils % (Manual) 74 % Band Neutrophils % 6 % Lymphocytes % 11 % Monocytes % 5 % Eosinophils % 1 % Neutrophils # (Manual) 12.5 TH/MM3 Metamyelocytes 3 % Differential Comment FINAL DIFF MANUAL Platelet Estimate NORMAL Platelet Morphology Comment NORMAL Ovalocytes 1+ Total Protein 6.2 GM/DL Albumin 2.4 GM/DL Phosphorus Level 1.7 MG/DL Magnesium Level 1.3 MG/DL Alkaline Phosphatase 62 U/L Aspartate Amino Transf (AST/SGOT) 20 U/L Alanine Aminotransferase (ALT/SGPT) LESS THAN 6 U/L Total Bilirubin 0.3 MG/DL Free Thyroxine 1.45 NG/DL Thyroid Stimulating Hormone 3rd Gen 3.710 uIU/ML Imaging Last Impressions Renal Ultrasound 06/11/17 0000 Signed Impressions: Service Date/Time: Sunday, June 11, 2017 17:30 - CONCLUSION: 1. Mild echogenic kidneys characteristic of medical renal disease. Small renal calcifications. Delonte Gonzalez MD Head CT 06/11/17 0000 Signed Impressions: Service Date/Time: Sunday, June 11, 2017 20:44 - CONCLUSION: 1. No acute intracranial abnormalities. Delonte Gonzalez MD Abdomen X-Ray 06/11/17 0000 Signed Impressions: Service Date/Time: Sunday, June 11, 2017 17:12 - CONCLUSION: Limited examination with no obvious obstruction or pneumoperitoneum. Lung bases are clear. Eduardo Rosas MD Objective Remarks GENERAL: Awake alert and oriented talkative and cooperative SKIN: Warm and dry. HEAD: Atraumatic. Normocephalic. EYES: Pupils equal and round. No scleral icterus. No injection or drainage. Extraocular muscles intact ENT: No nasal bleeding or discharge. Mucous membranes pink and moist. NECK: Trachea midline. No JVD. Supple CARDIOVASCULAR: Regular rate and rhythm. S1 and S2 no S3-S4 RESPIRATORY: No accessory muscle use. Clear to auscultation. Breath sounds equal bilaterally. GASTROINTESTINAL: Abdomen soft, non-tender, nondistended. Hepatic and splenic margins not palpable. MUSCULOSKELETAL: Extremities without clubbing, cyanosis, or edema. No obvious deformities. NEUROLOGICAL: Awake and alert. No obvious cranial nerve deficits. Motor grossly within normal limits. 4 out of 5 muscle strength in the arms and legs. Normal speech. Generalized weakness PSYCHIATRIC: INAppropriate mood and affect; insight and judgment ABnormal. Procedures NONE Medications and IVs Current Medications Sodium Chloride (NS Flush) 2 ml UNSCH PRN IV FLUSH FLUSH AFTER USING IV ACCESS ; Start 06/11/17 at 12:45; Stop 06/15/17 at 13:11; Status DC Sodium Chloride 1,000 ml @ 1,000 mls/hr Q1H ONCE IV Last administered on at 14:37; Start 06/11/17 at 12:48; Stop 06/11/17 at 13:47; Status DC Sodium Chloride 800 ml @ 1,000 mls/hr Q48M ONCE IV Last administered on at 14:38; Start 06/11/17 at 12:48; Stop 06/11/17 at 13:35; Status DC Sodium Chloride 1,000 ml @ 100 mls/hr Q10H IV ; Start 06/11/17 at 16:47; Stop 06/11/17 at 17:45; Status DC Sodium Chloride (NS Flush) 2 ml UNSCH PRN IV FLUSH FLUSH AFTER USING IV ACCESS ; Start 06/11/17 at 17:00 Sodium Chloride (NS Flush) 2 ml BID IV FLUSH Last administered on 06/20/17at 09: 39; Start 06/11/17 at 21:00 Naloxone HCl (Narcan Inj) 0.4 mg UNSCH PRN IV PUSH SEE LABEL COMMENTS; Start at 17:00 Magnesium Hydroxide (Milk Of Magnesia Liq) 30 ml Q12H PRN PO Mild constipation ; Start 06/11/17 at 17:00; Stop 06/20/17 at 10:03; Status DC Sennosides (Senokot) 17.2 mg Q12H PRN PO Moderate constipation; Start 06/11/17 at 17:00; Stop 06/20/17 at 10:03; Status DC Bisacodyl (Dulcolax Supp) 10 mg DAILY PRN RECTAL SEVERE CONSITIPATION; Start at 17:00; Stop 06/20/17 at 10:03; Status DC Lactulose (Lactulose Liq) 30 ml DAILY PRN PO SEVERE CONSITIPATION; Start at 17:00; Stop 06/20/17 at 10:03; Status DC Hydrocortisone Sodium Succinate (SoluCORTEF INJ) 50 mg ONCE ONCE IV PUSH Last administered on 06/11/17at 19:38; Start 06/11/17 at 17:00; Stop 06/11/17 at 17:02 ; Status DC Prednisone (Deltasone) 10 mg DAILY PO Last administered on 06/20/17 09:38; Start 06/12/17 at 09:00 Sodium Bicarbonate 75 meq/Sodium Chloride 1,075 ml @ 100 mls/hr [id number] IV Last administered on 06/11/17 21:38; Start 06/11/17 at 17:45; Stop 06/12/17 at 11:25; Status DC Cholecalciferol (Vitamin D3) 25,000 units ONCE ONCE PO ; Start 06/11/17 at 18: 00; Stop 06/11/17 at 18:10; Status DC Cholecalciferol (Vitamin D3) 5,000 units DAILY PO Last administered on at 09:38; Start 06/12/17 at 09:00 Ondansetron HCl (Zofran Inj) 4 mg Q6HR PRN IV PUSH NAUSEA Last administered on 06/19/17 18:38; Start 06/11/17 at 18:00 Heparin Sodium (Porcine) (Heparin Inj) 5,000 units Q12HR SQ Last administered on 06/20/17 09:38; Start 06/11/17 at 21:00 Sodium Bicarbonate 75 meq/Dextrose/ Sodium Chloride 1,075 ml @ 100 mls/hr [id number] IV Last administered on 06/13/17at 10:45; Start 06/12/17 at 11:30; Stop 06/13/17 at 17:39; Status DC Potassium Chloride 100 ml @ 50 mls/hr ONCE ONCE IV Last administered on at 11:31; Start 06/13/17 at 11:15; Stop 06/13/17 at 13:14; Status DC Sodium Chloride 250 ml @ 125 mls/hr Q2H IV ; Start 06/13/17 at 12:45; Stop at 17:39; Status DC Carbidopa/Levodopa (Sinemet 25-100 Mg) 1 tab Q12HR PO Last administered on at 08:58; Start 06/13/17 at 13:00; Stop 06/18/17 at 11:47; Status DC Dextrose 1,000 ml @ 60 mls/hr [id number] IV Last administered on 06/13/17at 18:37 ; Start 06/13/17 at 17:45; Stop 06/18/17 at 11:36; Status DC Acetaminophen (Tylenol) 650 mg Q4H PRN PO pain 1-10 Last administered on at 16:12; Start 06/14/17 at 11:00; Stop 06/19/17 at 10:52; Status DC Potassium Chloride/Sodium Chloride 1,000 ml @ 42 mls/hr [id number] IV Last administered on 06/15/17at 09:20; Start 06/14/17 at 11:00; Stop 06/15/17 at 13:16 ; Status DC Potassium Chloride/Sodium Chloride 1,000 ml @ 42 mls/hr [id number] IV Last administered on 06/17/17at 17:17; Start 06/15/17 at 14:00; Stop 06/18/17 at 11:35; Status DC Dronabinol (Marinol) 2.5 mg BID@11,16 PO Last administered on 06/19/17at 10:20; Start 06/16/17 at 11:00; Stop 06/19/17 at 12:13; Status DC Acetaminophen/ Hydrocodone Bitart ([place] 5-325 Mg) 1 tab ONCE ONCE PO Last administered on 06/16/17at 13:22; Start 06/16/17 at 12:00; Stop 06/16/17 at 12:01 ; Status DC Cephalexin Monohydrate (Keflex) 500 mg Q8HR PO Last administered on 06/20/17at 06 :00; Start 06/17/17 at 14:00 Metronidazole (Flagyl) 500 mg Q8HR PO Last administered on 06/20/17at 06:00; Start 06/17/17 at 14:00; Stop 06/20/17 at 10:03; Status DC Lactobacillus Acidophilus (Lactinex) 1 tab Q12HR PO Last administered on at 09:38; Start 06/17/17 at 21:00 Potassium Chloride/Dextrose 1,000 ml @ 60 mls/hr [id number] IV Last administered on 06/18/17at 18:21; Start 06/18/17 at 14:00; Stop 06/19/17 at 06:39; Status DC Carbidopa/Levodopa (Sinemet 25-100 Mg) 1 tab TID PO Last administered on at 09:38; Start 06/18/17 at 13:00 Sodium Chloride (NS Flush) 2 ml UNSCH PRN IV FLUSH FLUSH AFTER USING IV ACCESS ; Start 06/19/17 at 10:15; Stop 06/19/17 at 10:46; Status DC Sodium Chloride (NS Flush) 2 ml BID IV FLUSH ; Start 06/19/17 at 21:00; Stop 06/19 at 21:00; Status DC Acetaminophen (Tylenol) 650 mg Q4H PRN PO TEMP > 100.4; Start 06/19/17 at 10:15 Ondansetron HCl (Zofran Inj) 4 mg Q6H PRN IVP NAUSEA OR VOMITING; Start at 10:15; Stop 06/19/17 at 10:46; Status DC Metoclopramide HCl (Reglan Inj) 5 mg Q6H PRN IV PUSH NAUSEA OR VOMITING; Start 06/19/17 at 10:15 Acetaminophen (Tylenol) 650 mg Q6H PRN PO PAIN SCALE 1 TO 2; Start 06/19/17 at 10:15 Oxycodone/ Acetaminophen (Percocet 5-325 Mg) 1 tab Q6H PRN PO PAIN SCALE 3 TO 5; Start 06/19/17 at 10:15 Oxycodone/ Acetaminophen (Percocet 10-325 Mg) 1 tab Q6H PRN PO PAIN SCALE 6 TO 10; Start 06/19/17 at 10:15 Morphine Sulfate (Morphine Inj) 2 mg Q3H PRN IV PUSH Pain 3-5; if unable to take PO; Start 06/19/17 at 10:15 Morphine Sulfate (Morphine Inj) 4 mg Q3H PRN IV PUSH Pain 6-10;if unable to take PO; Start 06/19/17 at 10:15 Morphine Sulfate (Morphine Inj) 4 mg Q1H PRN IV PUSH PAIN SCALE 7-10 ( INTRACTABLE); Start 06/19/17 at 10:15 Morphine Sulfate (Morphine Inj) 4 mg Q3H PRN IV PUSH BREAKTHROUGH PAIN; Start 06/19/17 at 10:15 Naloxone HCl (Narcan Inj) 0.4 mg UNSCH PRN IV PUSH SEE LABEL COMMENTS; Start at 10:15; Stop 06/19/17 at 10:46; Status DC Senna/Docusate Sodium (Dawn-Colace) 1 tab BID PO Last administered on 06/19/17at 21:34; Start 06/19/17 at 21:00; Stop 06/20/17 at 10:03; Status DC Magnesium Hydroxide (Milk Of Magnesia Liq) 30 ml Q12H PRN PO Mild constipation ; Start 06/19/17 at 10:15; Stop 06/19/17 at 10:46; Status DC Sennosides (Senokot) 17.2 mg Q12H PRN PO Moderate constipation; Start 06/19/17 at 10:15; Stop 06/19/17 at 10:46; Status DC Bisacodyl (Dulcolax Supp) 10 mg DAILY PRN RECTAL SEVERE CONSITIPATION; Start at 10:15; Stop 06/19/17 at 10:52; Status DC Lactulose (Lactulose Liq) 30 ml DAILY PRN PO SEVERE CONSITIPATION; Start at 10:15; Stop 06/19/17 at 10:46; Status DC Dronabinol (Marinol) 5 mg BID@11,16 PO Last administered on 06/19/17at 18:38; Start 06/19/17 at 16:00 Potassium Bicarb/ Potassium Chloride (K-Lyte Cl Eff) 50 meq ONCE ONCE PO Last administered on 06/20/17at 09:39; Start 06/20/17 at 08:45; Stop 06/20/17 at 08: 46; Status DC Vancomycin HCl (VANCOMYCIN for oral use only) 250 mg QID PO ; Start 06/20/17 at 13:00 A/P Assessment and Plan Assessment and Plan Dehydration w/ ARF likely due to poor oral intake and failure to thrive Renal function improving daily with IVF rehydration and oral intake. At this time, will have calorie count along with percentage of meals taken. Will transition patient off IV fluid hydration and give 1 more bag of the D5W with 20Meq of K with continued improved oral intake and repeat lab work in the morning. 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 Appreciate Palliative care consult to assist in determination of goals of this consultation future long-term goals Increase Marinol TO 5 mg by mouth twice a day Hypernatremia due to dehydration -D5W; encourage oral fluid hydration Hypokalemia Resolved and supplemented Left-sided contractures with poor functional capacity Physical therapy and occupational therapy No evidence of CVA on CT of brain Stage II sacral ulcer Wound care nurse evaluated patient and continue dressing recommendations ordered Follow clinically Recent C. difficile colitis Asymptomatic, formed stools-- DIARRHEA Add VANCO due to as restarting antibiotics for urinary tract infection Urinary tract infection with culture results back for Escherichia coli and Klebsiella with Ray insertion back in Jun 13 - at this time will start oral Keflex And discontinue Ray catheter yesterday 2 Vitamin D deficiency Continue vitamin D supplementation as tolerated DVT prophylaxis SCD A.m. labs she's get physical therapy and and occupational LEUKOCYTOSIS- CHECK AM LABS HYPOKALEMIA REPLACE HYPOMAG REPLACE Discharge Planning CAN DC TO SNF IN NEXT FEW DAYS Jose Clifton DO Jun 20, 2017 10:17
[2017-06-20] MEDS ORDERED: SODIUM PHOSPHATE INJ 30 MMOL in SODIUM CHLOR 0.9% 250 ML INJ 250 ML IV ONE (11:00)
[2017-06-20 12:00] VITALS: BP 89/64; PULSE 130; RESP 19; TEMP 98.5; O2SAT 98
[2017-06-20] MEDS: MAGNESIUM SULFATE 1 GM PREMIX 100 ML IV SCH ×2 (12:23→15:08)
[2017-06-20] MEDS: VANCOMYCIN 500 MG VIAL (FOR ORAL USE ONLY) PO SCH ×3 (12:25→20:37)
[2017-06-20] MEDS: DRONABINOL 5 MG CAP PO SCH ×2 (12:25→18:27)
[2017-06-20 16:00] VITALS: BP 118/58; PULSE 128; RESP 18; TEMP 97.7; O2SAT 98
[2017-06-20 20:00] VITALS: BP 107/68; PULSE 82; RESP 14; TEMP 96.5; O2SAT 91
[2017-06-20] MEDS: oxyCODONE/ACETAMINOPHEN 10 MG/325 MG TAB PO PRN (21:58)
[2017-06-21] VITALS: BP 110/67; PULSE 84; RESP 15; TEMP 96.7; O2SAT 92
[2017-06-21] MEDS: CEPHALEXIN MONOHYDRATE 500 MG CAP PO SCH ×2 (05:51→13:45)
[2017-06-21 06:59] LABS: BASOPHIL # 0.1 TH/MM3 (0-0.2); BASOPHIL % 0.6 % (0.0-2.0); EOSINOPHIL # 0.1 TH/MM3 (0-0.4); EOSINOPHIL % 0.9 % (0.0-4.0); HEMATOCRIT 33.9 % (35.0-46.0); HEMOGLOBIN 11.4 GM/DL (11.6-15.3); LYMPH % 7.5 % (9.0-44.0); LYMPHOCYTE # 1.1 TH/MM3 (1.0-4.8); MEAN CELL VOLUME 85.9 FL (80.0-100.0); MEAN CORPUSCULAR HEMOGLOBIN 28.8 PG (27.0-34.0); MEAN CORPUSCULAR HGB CONC 33.5 % (32.0-36.0); MEAN PLATELET VOLUME 9.3 FL (7.0-11.0); MONO % 7.8 % (0.0-8.0); MONOCYTE # 1.1 TH/MM3 (0-0.9); NEUT % 83.2 % (16.0-70.0); PLATELET COUNT 256 TH/MM3 (150-450); RED BLOOD COUNT 3.95 MIL/MM3 (4.00-5.30); RED CELL DISTRIBUTION WIDTH 16.9 % (11.6-17.2); WHITE BLOOD COUNT 14.5 TH/MM3 (4.0-11.0)
[2017-06-21 07:40] LABS: ALBUMIN 2.2 GM/DL (3.4-5.0); ALKALINE PHOSPHATASE 68 U/L (45-117); ALT (GPT) LESS THAN 6 U/L (10-53); AST (GOT) 21 U/L (15-37); BICARBONATE 16.2 MEQ/L (21.0-32.0); BLOOD UREA NITROGEN 21 MG/DL (7-18); CHLORIDE 111 MEQ/L (98-107); CREATININE 0.96 MG/DL (0.50-1.00); GLOMERULAR FILTRATION RATE 69 ML/MIN (>89); GLUCOSE,RANDOM 83 MG/DL (74-106); MAGNESIUM 1.9 MG/DL (1.5-2.5); PHOSPHORUS 3.8 MG/DL (2.5-4.9); SODIUM (NA) 141 MEQ/L (136-145); TOTAL BILIRUBIN ADULT 0.3 MG/DL (0.2-1.0); TOTAL PROTEIN 5.9 GM/DL (6.4-8.2)
[2017-06-21 08:11] LABS: ACANTHOCYTES OCC (NORMAL); BANDS 1 % (0-6); LYMPHOCYTES 14 % (9-44); METAMYELOCYTES 2 % (0-1); MONOCYTES 3 % (0-8); POLYS (SEG NEUTROPHILS) 80 % (16-70)
--- NOTE | 2017-06-21 08:40 | HHI.PR ---
Subjective Remarks cachectic. in no acute distress. denies pain. no new complaints. Objective Vitals Vital Signs Date Time Temp Pulse Resp B/P (MAP) Pulse Ox O2 Delivery O2 Flow Rate FiO2 06/21/17 00:00 96.7 84 15 110/67 (81) 92 06/20/17 20:00 96.5 82 14 107/68 (81) 91 06/20/17 16:00 97.7 128 18 118/58 (78) 98 06/20/17 12:00 98.5 130 19 89/64 (72) 98 I/O 06/20/17 06/20/17 06/20/17 06/21/17 06/21/17 06/21/17 07:00 15:00 23:00 07:00 15:00 23:00 Intake Total 0 ml 180 ml 760 ml 240 ml Output Total 700 ml Balance -700 ml 180 ml 760 ml 240 ml Intake Oral 0 ml 80 ml 440 ml 240 ml IV Total 100 ml 320 ml Stool Total 700 ml # Voids 1 2 0 Result Diagram: 06/21/17 0452 06/21/17 0452 Imaging Last Impressions Renal Ultrasound 06/11/17 0000 Signed Impressions: Service Date/Time: Sunday, June 11, 2017 17:30 - CONCLUSION: 1. Mild echogenic kidneys characteristic of medical renal disease. Small renal calcifications. Delonte Gonzalez MD Head CT 06/11/17 0000 Signed Impressions: Service Date/Time: Sunday, June 11, 2017 20:44 - CONCLUSION: 1. No acute intracranial abnormalities. Delonte Gonzalez MD Abdomen X-Ray 06/11/17 0000 Signed Impressions: Service Date/Time: Sunday, June 11, 2017 17:12 - CONCLUSION: Limited examination with no obvious obstruction or pneumoperitoneum. Lung bases are clear. Eduardo Rosas MD Objective Remarks GENERAL:cachectic, in no apparent distress. CARDIOVASCULAR: Regular rate and regular rhythm without murmurs, gallops, or rubs. RESPIRATORY: Clear to auscultation. Breath sounds equal bilaterally. No wheezes , rales, or rhonchi. GASTROINTESTINAL: Abdomen soft, non-tender, nondistended. Normal, active bowel sounds MUSCULOSKELETAL: Extremities without clubbing, cyanosis, or edema. NEURO: Alert & Oriented x4 to person, place, time, situation. Moves all ext x4 Procedures NONE Medications and IVs Inpatient Medications Acetaminophen (Tylenol) 650 mg Q6H PRN PO PAIN SCALE 1 TO 2; Start 06/19/17 at 10:15 Acetaminophen/ Hydrocodone Bitart ([place] 5-325 Mg) 1 tab ONCE ONCE PO Last administered on 06/16/17at 13:22; Start 06/16/17 at 12:00; Stop 06/16/17 at 12:01 ; Status DC Bisacodyl (Dulcolax Supp) 10 mg DAILY PRN RECTAL SEVERE CONSITIPATION; Start at 10:15; Stop 06/19/17 at 10:52; Status DC Carbidopa/Levodopa (Sinemet 25-100 Mg) 1 tab TID PO Last administered on 18:24; Start 06/18/17 at 13:00 Cephalexin Monohydrate (Keflex) 500 mg Q8HR PO Last administered on 06/21/17at 05 :51; Start 06/17/17 at 14:00 Cholecalciferol (Vitamin D3) 5,000 units DAILY PO Last administered on at 09:38; Start 06/12/17 at 09:00 Dextrose 1,000 ml @ 60 mls/hr [id number] IV Last administered on 06/13/17at 18:37 ; Start 06/13/17 at 17:45; Stop 06/18/17 at 11:36; Status DC Dronabinol (Marinol) 5 mg BID@11,16 PO Last administered on 06/20/17 18:27; Start 06/19/17 at 16:00 Heparin Sodium (Porcine) (Heparin Inj) 5,000 units Q12HR SQ Last administered on 06/20/17 20:36; Start 06/11/17 at 21:00 Hydrocortisone Sodium Succinate (SoluCORTEF INJ) 50 mg ONCE ONCE IV PUSH Last administered on 06/11/17at 19:38; Start 06/11/17 at 17:00; Stop 06/11/17 at 17:02 ; Status DC Lactobacillus Acidophilus (Lactinex) 1 tab Q12HR PO Last administered on at 20:36; Start 06/17/17 at 21:00 Lactulose (Lactulose Liq) 30 ml DAILY PRN PO SEVERE CONSITIPATION; Start at 10:15; Stop 06/19/17 at 10:46; Status DC Magnesium Hydroxide (Milk Of Magnesia Liq) 30 ml Q12H PRN PO Mild constipation ; Start 06/19/17 at 10:15; Stop 06/19/17 at 10:46; Status DC Magnesium Sulfate/ Dextrose 100 ml @ 100 mls/hr Q1H IV Last administered on 06/20/17at 15:08; Start 06/20/17 at 10:30; Stop 06/20/17 at 12:29; Status DC Metoclopramide HCl (Reglan Inj) 5 mg Q6H PRN IV PUSH NAUSEA OR VOMITING; Start 06/19/17 at 10:15 Metronidazole (Flagyl) 500 mg Q8HR PO Last administered on 06/20/17at 06:00; Start 06/17/17 at 14:00; Stop 06/20/17 at 10:03; Status DC Morphine Sulfate (Morphine Inj) 4 mg Q3H PRN IV PUSH BREAKTHROUGH PAIN; Start 06/19/17 at 10:15 Naloxone HCl (Narcan Inj) 0.4 mg UNSCH PRN IV PUSH SEE LABEL COMMENTS; Start at 10:15; Stop 06/19/17 at 10:46; Status DC Ondansetron HCl (Zofran Inj) 4 mg Q6H PRN IVP NAUSEA OR VOMITING; Start at 10:15; Stop 06/19/17 at 10:46; Status DC Oxycodone/ Acetaminophen (Percocet 5-325 Mg) 1 tab Q6H PRN PO PAIN SCALE 3 TO 5; Start 06/19/17 at 10:15 Oxycodone/ Acetaminophen (Percocet 10-325 Mg) 1 tab Q6H PRN PO PAIN SCALE 6 TO 10 Last administered on 06/20/17at 21:58; Start 06/19/17 at 10:15 Potassium Chloride/Dextrose 1,000 ml @ 60 mls/hr [id number] IV Last administered on 06/18/17at 18:21; Start 06/18/17 at 14:00; Stop 06/19/17 at 06:39; Status DC Potassium Chloride/Sodium Chloride 1,000 ml @ 42 mls/hr [id number] IV Last administered on 06/17/17at 17:17; Start 06/15/17 at 14:00; Stop 06/18/17 at 11:35; Status DC Potassium Bicarb/ Potassium Chloride (K-Lyte Cl Eff) 50 meq ONCE ONCE PO Last administered on 06/20/17at 09:39; Start 06/20/17 at 08:45; Stop 06/20/17 at 08: 46; Status DC Potassium Chloride 100 ml @ 50 mls/hr ONCE ONCE IV Last administered on at 11:31; Start 06/13/17 at 11:15; Stop 06/13/17 at 13:14; Status DC Prednisone (Deltasone) 10 mg DAILY PO Last administered on 06/20/17 09:38; Start 06/12/17 at 09:00 Senna/Docusate Sodium (Dawn-Colace) 1 tab BID PO Last administered on 06/19/17at 21:34; Start 06/19/17 at 21:00; Stop 06/20/17 at 10:03; Status DC Sennosides (Senokot) 17.2 mg Q12H PRN PO Moderate constipation; Start 06/19/17 at 10:15; Stop 06/19/17 at 10:46; Status DC Sodium Bicarbonate 75 meq/Dextrose/ Sodium Chloride 1,075 ml @ 100 mls/hr [id number] IV Last administered on 06/13/17at 10:45; Start 06/12/17 at 11:30; Stop 06/13/17 at 17:39; Status DC Sodium Bicarbonate 75 meq/Sodium Chloride 1,075 ml @ 100 mls/hr [id number] IV Last administered on 06/11/17at 21:38; Start 06/11/17 at 17:45; Stop 06/12/17 at 11:25; Status DC Sodium Chloride (NS Flush) 2 ml BID IV FLUSH ; Start 06/19/17 at 21:00; Stop 06/19 at 21:00; Status DC Sodium Phosphate 30 mmol/Sodium Chloride 260 ml @ 43.333 mls/ hr ONCE ONCE IV Last administered on 06/20/17at 15:08; Start 06/20/17 at 11:00; Stop 06/20/17 at 16:59; Status DC Vancomycin HCl (VANCOMYCIN for oral use only) 250 mg QID PO Last administered on 06/20/17at 20:37; Start 06/20/17 at 13:00 A/P Assessment and Plan Dehydration w/ ARF likely due to poor oral intake and failure to thrive Renal function improved with IVF rehydration and oral intake. repeat calorie count. 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 Appreciate Palliative care consult to assist in determination of goals of this consultation future long-term goals Increased Marinol TO 5 mg by mouth twice a day Hypernatremia due to dehydration -resolved. Hypokalemia Resolved. Left-sided contractures with poor functional capacity Physical therapy and occupational therapy No evidence of CVA on CT of brain Stage II sacral ulcer Wound care nurse evaluated patient and continue dressing recommendations ordered Follow clinically Recent C. difficile colitis Asymptomatic, formed stools-- DIARRHEA Add VANCO due to as restarting antibiotics for urinary tract infection Urinary tract infection with culture results back for Escherichia coli and Klebsiella with Ray insertion back in Jun 13 - continue Keflex. Vitamin D deficiency Continue vitamin D supplementation as tolerated DVT prophylaxis SCD palliative care following. Discharge Planning dc planning in 2-3 days. Danelle Winter MD Jun 21, 2017 08:40
[2017-06-21] MEDS: CHOLECALCIFEROL (VIT D3) 5000 UNIT CAP PO SCH (09:38)
[2017-06-21] MEDS: LACTOBACILLUS ACIDOPHILUS TAB PO SCH (09:38)
[2017-06-21] MEDS: SODIUM CHLORIDE 0.9% FLUSH 10 ML FLUSH IV FLUSH SCH (09:38)
[2017-06-21] MEDS: CARBIDOPA/LEVODOPA 25 MG/100 MG TAB PO SCH ×3 (09:38→17:47)
[2017-06-21] MEDS: HEPARIN SODIUM - SQ 10,000 UNITS/ML VIAL SQ SCH (09:38)
[2017-06-21] MEDS: predniSONE 10 MG TAB PO SCH (09:38)
[2017-06-21] MEDS: VANCOMYCIN 500 MG VIAL (FOR ORAL USE ONLY) PO SCH ×3 (09:39→17:47)
[2017-06-21] MEDS: DRONABINOL 5 MG CAP PO SCH ×2 (11:00→16:00)
[2017-06-21 12:00] VITALS: BP 92/55; PULSE 138; RESP 18; TEMP 95.7; O2SAT 100
[2017-06-21] MEDS: oxyCODONE/ACETAMINOPHEN 10 MG/325 MG TAB PO PRN (12:34)
[2017-06-21 16:00] VITALS: BP 87/43; PULSE 137; RESP 18; TEMP 97.6; O2SAT 98
[2017-06-21] MEDS ORDERED: NS + KCL 20 MEQ INJ 1,000 ML IV SCH (20:45)
[2017-06-21 22:00] VITALS: BP 101/49; PULSE 133; RESP 18; TEMP 97.7; O2SAT 97
[2017-06-22 01:00] VITALS: BP 89/50; PULSE 122; RESP 20; TEMP 97.7; O2SAT 95
[2017-06-22] MEDS: HEPARIN SODIUM - SQ 10,000 UNITS/ML VIAL SQ SCH ×3 (01:52→21:19)
[2017-06-22] MEDS: CEPHALEXIN MONOHYDRATE 500 MG CAP PO SCH (01:53)
[2017-06-22] MEDS: LACTOBACILLUS ACIDOPHILUS TAB PO SCH ×3 (01:53→21:18)
[2017-06-22] MEDS: VANCOMYCIN 500 MG VIAL (FOR ORAL USE ONLY) PO SCH ×5 (01:53→21:16)
[2017-06-22] MEDS: SODIUM CHLORIDE 0.9% FLUSH 10 ML FLUSH IV FLUSH SCH ×3 (01:54→21:00)
[2017-06-22] MEDS ORDERED: SODIUM CHLORID 0.9% 500 ML INJ 500 ML IV ONE (03:00)
[2017-06-22 04:06] LABS: HEMOGLOBIN 9.5 GM/DL (11.6-15.3); MEAN CELL VOLUME 86.5 FL (80.0-100.0); MEAN CORPUSCULAR HEMOGLOBIN 28.4 PG (27.0-34.0); MEAN CORPUSCULAR HGB CONC 32.8 % (32.0-36.0); MEAN PLATELET VOLUME 8.7 FL (7.0-11.0); PLATELET COUNT 225 TH/MM3 (150-450); RED BLOOD COUNT 3.35 MIL/MM3 (4.00-5.30); RED CELL DISTRIBUTION WIDTH 16.8 % (11.6-17.2)
[2017-06-22 04:15] VITALS: BP 118/63; PULSE 136; RESP 20; TEMP 98.6; O2SAT 98
[2017-06-22 04:38] LABS: BICARBONATE 19.8 MEQ/L (21.0-32.0); CALCIUM 8.4 MG/DL (8.5-10.1); CREATININE 0.74 MG/DL (0.50-1.00); MAGNESIUM 1.5 MG/DL (1.5-2.5); PHOSPHORUS 2.4 MG/DL (2.5-4.9)
[2017-06-22] MEDS ORDERED: MAGNESIUM SULFATE 1 GM PREMIX 100 ML IV ONE (05:00)
[2017-06-22] MEDS ORDERED: MAGNESIUM OXIDE 400 MG TAB PO ONE (05:00)
[2017-06-22] MEDS ORDERED: cefTRIAXone INJ 1,000 MG in SODIUM CHLORIDE 0.9% INJ 100 ML IV SCH (05:00)
[2017-06-22] MEDS ORDERED: METOPROLOL TARTRATE 25 MG TAB PO ONE (05:00)
[2017-06-22] MEDS ORDERED: POTASSIUM PHOSPHATE MONOBASIC 500 MG TAB PO ONE (05:00)
[2017-06-22 05:26] LABS: BANDS 3 % (0-6); LYMPHOCYTES 3 % (9-44); MONOCYTES 2 % (0-8); NEUTROPHIL # MANUAL DIFF 14.9 TH/MM3 (1.8-7.7); POLYS (SEG NEUTROPHILS) 90 % (16-70)
[2017-06-22 05:27] LABS: OVALOCYTES 1+ (NORMAL)
[2017-06-22] MEDS: LACTATED RINGER'S 1000 ML INJ 1,000 ML IV SCH ×2 (05:46→16:55)
[2017-06-22 08:00] VITALS: BP 128/70; PULSE 68; RESP 16; TEMP 97.4; O2SAT 95
[2017-06-22] MEDS: CARBIDOPA/LEVODOPA 25 MG/100 MG TAB PO SCH ×3 (09:04→16:54)
[2017-06-22] MEDS: predniSONE 10 MG TAB PO SCH (09:04)
[2017-06-22] MEDS: CHOLECALCIFEROL (VIT D3) 5000 UNIT CAP PO SCH (09:04)
--- NOTE | 2017-06-22 09:42 | HHI.PR ---
Subjective Remarks in no acute distress. however ill-looking. calorie count in process. denies pain. Objective Vitals Vital Signs Date Time Temp Pulse Resp B/P (MAP) Pulse Ox O2 Delivery O2 Flow Rate FiO2 06/22/17 04:15 98.6 136 20 118/63 (81) 98 06/22/17 01:00 97.7 122 20 89/50 (63) 95 06/21/17 22:00 97.7 133 18 101/49 (66) 97 06/21/17 16:00 97.6 137 18 87/43 (58) 98 06/21/17 12:00 95.7 138 18 92/55 (67) 100 I/O 06/21/17 06/21/17 06/21/17 06/22/17 06/22/17 06/22/17 07:00 15:00 23:00 07:00 15:00 23:00 Intake Total 240 ml 0 ml 500 ml Balance 240 ml 0 ml 500 ml Intake Oral 240 ml IV Total 0 ml 500 ml # Voids 0 Result Diagram: 06/22/17 0352 06/22/17 0352 Imaging Last Impressions Renal Ultrasound 06/11/17 0000 Signed Impressions: Service Date/Time: Sunday, June 11, 2017 17:30 - CONCLUSION: 1. Mild echogenic kidneys characteristic of medical renal disease. Small renal calcifications. Delonte Gonzalez MD Head CT 06/11/17 0000 Signed Impressions: Service Date/Time: Sunday, June 11, 2017 20:44 - CONCLUSION: 1. No acute intracranial abnormalities. Delonte Gonzalez MD Abdomen X-Ray 06/11/17 0000 Signed Impressions: Service Date/Time: Sunday, June 11, 2017 17:12 - CONCLUSION: Limited examination with no obvious obstruction or pneumoperitoneum. Lung bases are clear. Eduardo Rosas MD Objective Remarks GENERAL:cachectic, in no apparent distress. CARDIOVASCULAR: Regular rate and regular rhythm without murmurs, gallops, or rubs. RESPIRATORY: Clear to auscultation. Breath sounds equal bilaterally. No wheezes , rales, or rhonchi. GASTROINTESTINAL: Abdomen soft, non-tender, nondistended. Normal, active bowel sounds MUSCULOSKELETAL: Extremities without clubbing, cyanosis, or edema. NEURO: Alert & Oriented x4 to person, place, time, situation. Moves all ext x4 Procedures NONE Medications and IVs Inpatient Medications Acetaminophen (Tylenol) 650 mg Q6H PRN PO PAIN SCALE 1 TO 2; Start 06/19/17 at 10:15 Acetaminophen/ Hydrocodone Bitart ([place] 5-325 Mg) 1 tab ONCE ONCE PO Last administered on 06/16/17at 13:22; Start 06/16/17 at 12:00; Stop 06/16/17 at 12:01 ; Status DC Bisacodyl (Dulcolax Supp) 10 mg DAILY PRN RECTAL SEVERE CONSITIPATION; Start at 10:15; Stop 06/19/17 at 10:52; Status DC Carbidopa/Levodopa (Sinemet 25-100 Mg) 1 tab TID PO Last administered on at 09:04; Start 06/18/17 at 13:00 Ceftriaxone Sodium 1000 mg/ Sodium Chloride 100 ml @ 200 mls/hr Q24H IV Last administered on 06/22/17at 05:49; Start 06/22/17 at 05:00 Cephalexin Monohydrate (Keflex) 500 mg Q8HR PO Last administered on 06/22/17at 01 :53; Start 06/17/17 at 14:00; Status Future Hold Cholecalciferol (Vitamin D3) 5,000 units DAILY PO Last administered on at 09:04; Start 06/12/17 at 09:00 Dextrose 1,000 ml @ 60 mls/hr [id number] IV Last administered on 06/13/17at 18:37 ; Start 06/13/17 at 17:45; Stop 06/18/17 at 11:36; Status DC Dronabinol (Marinol) 5 mg BID@11,16 PO Last administered on 06/21/17at 16:00; Start 06/19/17 at 16:00 Heparin Sodium (Porcine) (Heparin Inj) 5,000 units Q12HR SQ Last administered on 06/22/17at 09:04; Start 06/11/17 at 21:00 Hydrocortisone Sodium Succinate (SoluCORTEF INJ) 50 mg ONCE ONCE IV PUSH Last administered on 06/11/17at 19:38; Start 06/11/17 at 17:00; Stop 06/11/17 at 17:02 ; Status DC Lactated Ringer's 1,000 ml @ 100 mls/hr Q10H IV Last administered on 06/22/17at 05:46; Start 06/22/17 at 05:15 Lactobacillus Acidophilus (Lactinex) 1 tab Q12HR PO Last administered on at 09:04; Start 06/17/17 at 21:00 Lactulose (Lactulose Liq) 30 ml DAILY PRN PO SEVERE CONSITIPATION; Start at 10:15; Stop 06/19/17 at 10:46; Status DC Magnesium Hydroxide (Milk Of Magnesia Liq) 30 ml Q12H PRN PO Mild constipation ; Start 06/19/17 at 10:15; Stop 06/19/17 at 10:46; Status DC Magnesium Oxide (Mag-Ox) 400 mg ONCE ONCE PO Last administered on 06/22/17at 05: 48; Start 06/22/17 at 05:00; Stop 06/22/17 at 05:01; Status DC Magnesium Sulfate/ Dextrose 100 ml @ 100 mls/hr ONCE ONCE IV Last administered on 06/22/17at 05:49; Start 06/22/17 at 05:00; Stop 06/22/17 at 05:59; Status DC Metoclopramide HCl (Reglan Inj) 5 mg Q6H PRN IV PUSH NAUSEA OR VOMITING; Start 06/19/17 at 10:15 Metoprolol Tartrate (Lopressor) 25 mg ONCE ONCE PO Last administered on at 05:48; Start 06/22/17 at 05:00; Stop 06/22/17 at 05:04; Status DC Metronidazole (Flagyl) 500 mg Q8HR PO Last administered on 06/20/17at 06:00; Start 06/17/17 at 14:00; Stop 06/20/17 at 10:03; Status DC Morphine Sulfate (Morphine Inj) 4 mg Q3H PRN IV PUSH BREAKTHROUGH PAIN; Start 06/19/17 at 10:15 Naloxone HCl (Narcan Inj) 0.4 mg UNSCH PRN IV PUSH SEE LABEL COMMENTS; Start at 10:15; Stop 06/19/17 at 10:46; Status DC Ondansetron HCl (Zofran Inj) 4 mg Q6H PRN IVP NAUSEA OR VOMITING; Start at 10:15; Stop 06/19/17 at 10:46; Status DC Oxycodone/ Acetaminophen (Percocet 5-325 Mg) 1 tab Q6H PRN PO PAIN SCALE 3 TO 5; Start 06/19/17 at 10:15 Oxycodone/ Acetaminophen (Percocet 10-325 Mg) 1 tab Q6H PRN PO PAIN SCALE 6 TO 10 Last administered on 06/20/17at 21:58; Start 06/19/17 at 10:15 Potassium Chloride/Dextrose 1,000 ml @ 60 mls/hr [id number] IV Last administered on 06/18/17at 18:21; Start 06/18/17 at 14:00; Stop 06/19/17 at 06:39; Status DC Potassium Chloride/Sodium Chloride 1,000 ml @ 100 mls/hr Q10H IV Last administered on 06/21/17at 21:15; Start 06/21/17 at 20:45; Stop 06/22/17 at 05:03; Status DC Potassium Phosphate (K-Phos) 500 mg ONCE ONCE PO Last administered on at 05:48; Start 06/22/17 at 05:00; Stop 06/22/17 at 05:01; Status DC Potassium Bicarb/ Potassium Chloride (K-Lyte Cl Eff) 50 meq ONCE ONCE PO Last administered on 06/20/17at 09:39; Start 06/20/17 at 08:45; Stop 06/20/17 at 08: 46; Status DC Potassium Chloride 100 ml @ 50 mls/hr ONCE ONCE IV Last administered on at 11:31; Start 06/13/17 at 11:15; Stop 06/13/17 at 13:14; Status DC Prednisone (Deltasone) 10 mg DAILY PO Last administered on 06/22/17at 09:04; Start 06/12/17 at 09:00 Senna/Docusate Sodium (Dawn-Colace) 1 tab BID PO Last administered on 06/19/17at 21:34; Start 06/19/17 at 21:00; Stop 06/20/17 at 10:03; Status DC Sennosides (Senokot) 17.2 mg Q12H PRN PO Moderate constipation; Start 06/19/17 at 10:15; Stop 06/19/17 at 10:46; Status DC Sodium Bicarbonate 75 meq/Dextrose/ Sodium Chloride 1,075 ml @ 100 mls/hr [id number] IV Last administered on 06/13/17at 10:45; Start 06/12/17 at 11:30; Stop 06/13/17 at 17:39; Status DC Sodium Bicarbonate 75 meq/Sodium Chloride 1,075 ml @ 100 mls/hr [id number] IV Last administered on 06/11/17at 21:38; Start 06/11/17 at 17:45; Stop 06/12/17 at 11:25; Status DC Sodium Chloride 500 ml @ 500 mls/hr BOLUS ONCE IV Last administered on at 03:15; Start 06/22/17 at 03:00; Stop 06/22/17 at 03:59; Status DC Sodium Chloride (NS Flush) 2 ml BID IV FLUSH ; Start 06/19/17 at 21:00; Stop 06/19 at 21:00; Status DC Sodium Phosphate 30 mmol/Sodium Chloride 260 ml @ 43.333 mls/ hr ONCE ONCE IV Last administered on 06/20/17at 15:08; Start 06/20/17 at 11:00; Stop 06/20/17 at 16:59; Status DC Vancomycin HCl (VANCOMYCIN for oral use only) 250 mg QID PO Last administered on 06/22/17at 09:03; Start 06/20/17 at 13:00 A/P Assessment and Plan Dehydration w/ ARF likely due to poor oral intake and failure to thrive Renal function improved with IVF rehydration and oral intake. repeated calorie count in process. patient assessment coordinator following. 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 Appreciate Palliative care consult to assist in determination of goals of this consultation future long-term goals Increased Marinol TO 5 mg by mouth twice a day Hypernatremia due to dehydration -resolved. Hypokalemia Resolved. Left-sided contractures with poor functional capacity Physical therapy and occupational therapy No evidence of CVA on CT of brain tachycardia- check EKG- blood cultures pending- will hold off on antibiotics for now. Stage II sacral ulcer Wound care nurse evaluated patient and continue dressing recommendations ordered Follow clinically Recent C. difficile colitis Asymptomatic, formed stools-- DIARRHEA Add VANCO due to as restarting antibiotics for urinary tract infection Urinary tract infection with culture results back for Escherichia coli and Klebsiella with Ray insertion back in Jun 13 - stop IV antibiotic. Vitamin D deficiency Continue vitamin D supplementation as tolerated DVT prophylaxis SCD palliative care following. Discharge Planning calorie count in process. needs palliative care follow-up. Danelle Winter MD Jun 22, 2017 09:42
[2017-06-22 12:00] VITALS: BP_SYST 103; BP_SYST 133; BP_DIAS 75; PULSE 92; RESP 16; TEMP 97.6; O2SAT 97
[2017-06-22] MEDS: DRONABINOL 5 MG CAP PO SCH ×2 (12:16→16:54)
[2017-06-22 16:41] VITALS: BP 101/57; PULSE 95; RESP 16; TEMP 98.1; O2SAT 100
[2017-06-22 18:28] LABS: BILIRUBIN, URINE NEG (NEG); BLOOD, URINE NEG (NEG); GLUCOSE,URINE NEG (NEG); HYALINE CAST, URINE 4 /lpf (RARE); KETONE, URINE NEG (NEG); MUCUS URINE FEW /lpf (OCC); NITRITE,URINE NEG (NEG); PH, URINE 5.5 (5.0-8.5); URINE COLOR YELLOW (YELLW/STRAW); URINE LEUKOCYTE ESTERASE NEG (NEG)
[2017-06-22 20:00] VITALS: BP 123/52; PULSE 117; RESP 18; TEMP 96; O2SAT 99
[2017-06-23] VITALS (7 sets, daily range): BP systolic 102–120; BP diastolic 42–77; PULSE 104–123; RESP 16–18; TEMP 96.4–98.2; O2SAT 97–100
[2017-06-23] MEDS: LACTATED RINGER'S 1000 ML INJ 1,000 ML IV SCH ×3 (03:54→22:01)
[2017-06-23] MEDS: LACTOBACILLUS ACIDOPHILUS TAB PO SCH ×2 (08:55→21:56)
[2017-06-23] MEDS: CHOLECALCIFEROL (VIT D3) 5000 UNIT CAP PO SCH (08:55)
[2017-06-23] MEDS: predniSONE 10 MG TAB PO SCH (08:55)
[2017-06-23] MEDS: HEPARIN SODIUM - SQ 10,000 UNITS/ML VIAL SQ SCH ×2 (08:55→21:55)
[2017-06-23] MEDS: CARBIDOPA/LEVODOPA 25 MG/100 MG TAB PO SCH ×3 (08:55→16:34)
[2017-06-23] MEDS: SODIUM CHLORIDE 0.9% FLUSH 10 ML FLUSH IV FLUSH SCH ×2 (08:56→21:00)
[2017-06-23] MEDS: VANCOMYCIN 500 MG VIAL (FOR ORAL USE ONLY) PO SCH ×4 (09:04→21:59)
--- NOTE | 2017-06-23 09:37 | HHI.PR ---
Subjective Remarks in no acute distress. denies pain. no fever. had part of her breakfast this morning. d/w the RN and no acute distress. Objective Vitals Vital Signs Date Time Temp Pulse Resp B/P (MAP) Pulse Ox O2 Delivery O2 Flow Rate FiO2 06/23/17 08:00 97.6 115 17 113/58 (76) 100 06/23/17 04:00 97.6 123 16 108/63 (78) 97 06/23/17 00:00 96.4 115 16 102/58 (73) 99 06/22/17 20:00 96.0 117 18 123/52 (75) 99 06/22/17 16:41 98.1 95 16 101/57 (72) 100 06/22/17 12:00 97.6 92 16 103/75 (84) 97 I/O 06/22/17 06/22/17 06/22/17 06/23/17 06/23/17 06/23/17 07:00 15:00 23:00 07:00 15:00 23:00 Intake Total 600 ml 1000 ml Output Total 200 ml Balance 600 ml -200 ml 1000 ml IV Total 600 ml 1000 ml Output Urine Total 200 ml # Voids 2 # Bowel Movements 2 Result Diagram: 06/22/17 0352 06/22/17 0352 Imaging Last Impressions Renal Ultrasound 06/11/17 0000 Signed Impressions: Service Date/Time: Sunday, June 11, 2017 17:30 - CONCLUSION: 1. Mild echogenic kidneys characteristic of medical renal disease. Small renal calcifications. Delonte Gonzalez MD Head CT 06/11/17 0000 Signed Impressions: Service Date/Time: Sunday, June 11, 2017 20:44 - CONCLUSION: 1. No acute intracranial abnormalities. Delonte Gonzalez MD Abdomen X-Ray 06/11/17 0000 Signed Impressions: Service Date/Time: Sunday, June 11, 2017 17:12 - CONCLUSION: Limited examination with no obvious obstruction or pneumoperitoneum. Lung bases are clear. Eduardo Rosas MD Objective Remarks GENERAL:cachectic, in no apparent distress. CARDIOVASCULAR: Regular rate and regular rhythm without murmurs, gallops, or rubs. RESPIRATORY: Clear to auscultation. Breath sounds equal bilaterally. No wheezes , rales, or rhonchi. GASTROINTESTINAL: Abdomen soft, non-tender, nondistended. Normal, active bowel sounds MUSCULOSKELETAL: Extremities without clubbing, cyanosis, or edema. NEURO: Alert & Oriented x4 to person, place, time, situation. Moves all ext x4 Procedures NONE Medications and IVs Inpatient Medications Acetaminophen (Tylenol) 650 mg Q6H PRN PO PAIN SCALE 1 TO 2; Start 06/19/17 at 10:15 Acetaminophen/ Hydrocodone Bitart ([place] 5-325 Mg) 1 tab ONCE ONCE PO Last administered on 06/16/17at 13:22; Start 06/16/17 at 12:00; Stop 06/16/17 at 12:01 ; Status DC Bisacodyl (Dulcolax Supp) 10 mg DAILY PRN RECTAL SEVERE CONSITIPATION; Start at 10:15; Stop 06/19/17 at 10:52; Status DC Carbidopa/Levodopa (Sinemet 25-100 Mg) 1 tab TID PO Last administered on at 08:55; Start 06/18/17 at 13:00 Ceftriaxone Sodium 1000 mg/ Sodium Chloride 100 ml @ 200 mls/hr Q24H IV Last administered on 06/22/17at 05:49; Start 06/22/17 at 05:00; Stop 06/22/17 at 09:45; Status DC Cephalexin Monohydrate (Keflex) 500 mg Q8HR PO Last administered on 06/22/17at 01 :53; Start 06/17/17 at 14:00; Status Future Hold Cholecalciferol (Vitamin D3) 5,000 units DAILY PO Last administered on at 08:55; Start 06/12/17 at 09:00 Dextrose 1,000 ml @ 60 mls/hr [id number] IV Last administered on 06/13/17at 18:37 ; Start 06/13/17 at 17:45; Stop 06/18/17 at 11:36; Status DC Dronabinol (Marinol) 5 mg BID@11,16 PO Last administered on 06/22/17at 16:54; Start 06/19/17 at 16:00 Heparin Sodium (Porcine) (Heparin Inj) 5,000 units Q12HR SQ Last administered on 06/23/17at 08:55; Start 06/11/17 at 21:00 Hydrocortisone Sodium Succinate (SoluCORTEF INJ) 50 mg ONCE ONCE IV PUSH Last administered on 06/11/17at 19:38; Start 06/11/17 at 17:00; Stop 06/11/17 at 17:02 ; Status DC Lactated Ringer's 1,000 ml @ 100 mls/hr Q10H IV Last administered on 06/23/17at 03:54; Start 06/22/17 at 05:15 Lactobacillus Acidophilus (Lactinex) 1 tab Q12HR PO Last administered on at 08:55; Start 06/17/17 at 21:00 Lactulose (Lactulose Liq) 30 ml DAILY PRN PO SEVERE CONSITIPATION; Start at 10:15; Stop 06/19/17 at 10:46; Status DC Magnesium Hydroxide (Milk Of Magnesia Liq) 30 ml Q12H PRN PO Mild constipation ; Start 06/19/17 at 10:15; Stop 06/19/17 at 10:46; Status DC Magnesium Oxide (Mag-Ox) 400 mg ONCE ONCE PO Last administered on 06/22/17at 05: 48; Start 06/22/17 at 05:00; Stop 06/22/17 at 05:01; Status DC Magnesium Sulfate/ Dextrose 100 ml @ 100 mls/hr ONCE ONCE IV Last administered on 06/22/17at 05:49; Start 06/22/17 at 05:00; Stop 06/22/17 at 05:59; Status DC Metoclopramide HCl (Reglan Inj) 5 mg Q6H PRN IV PUSH NAUSEA OR VOMITING; Start 06/19/17 at 10:15 Metoprolol Tartrate (Lopressor) 25 mg ONCE ONCE PO Last administered on at 05:48; Start 06/22/17 at 05:00; Stop 06/22/17 at 05:04; Status DC Metronidazole (Flagyl) 500 mg Q8HR PO Last administered on 06/20/17at 06:00; Start 06/17/17 at 14:00; Stop 06/20/17 at 10:03; Status DC Morphine Sulfate (Morphine Inj) 4 mg Q3H PRN IV PUSH BREAKTHROUGH PAIN; Start 06/19/17 at 10:15 Naloxone HCl (Narcan Inj) 0.4 mg UNSCH PRN IV PUSH SEE LABEL COMMENTS; Start at 10:15; Stop 06/19/17 at 10:46; Status DC Ondansetron HCl (Zofran Inj) 4 mg Q6H PRN IVP NAUSEA OR VOMITING; Start at 10:15; Stop 06/19/17 at 10:46; Status DC Oxycodone/ Acetaminophen (Percocet 5-325 Mg) 1 tab Q6H PRN PO PAIN SCALE 3 TO 5; Start 06/19/17 at 10:15 Oxycodone/ Acetaminophen (Percocet 10-325 Mg) 1 tab Q6H PRN PO PAIN SCALE 6 TO 10 Last administered on 06/20/17at 21:58; Start 06/19/17 at 10:15 Potassium Chloride/Dextrose 1,000 ml @ 60 mls/hr [id number] IV Last administered on 06/18/17at 18:21; Start 06/18/17 at 14:00; Stop 06/19/17 at 06:39; Status DC Potassium Chloride/Sodium Chloride 1,000 ml @ 100 mls/hr Q10H IV Last administered on 06/21/17at 21:15; Start 06/21/17 at 20:45; Stop 06/22/17 at 05:03; Status DC Potassium Phosphate (K-Phos) 500 mg ONCE ONCE PO Last administered on at 05:48; Start 06/22/17 at 05:00; Stop 06/22/17 at 05:01; Status DC Potassium Bicarb/ Potassium Chloride (K-Lyte Cl Eff) 50 meq ONCE ONCE PO Last administered on 06/20/17at 09:39; Start 06/20/17 at 08:45; Stop 06/20/17 at 08: 46; Status DC Potassium Chloride 100 ml @ 50 mls/hr ONCE ONCE IV Last administered on at 11:31; Start 06/13/17 at 11:15; Stop 06/13/17 at 13:14; Status DC Prednisone (Deltasone) 10 mg DAILY PO Last administered on 06/23/17at 08:55; Start 06/12/17 at 09:00 Senna/Docusate Sodium (Dawn-Colace) 1 tab BID PO Last administered on 06/19/17at 21:34; Start 06/19/17 at 21:00; Stop 06/20/17 at 10:03; Status DC Sennosides (Senokot) 17.2 mg Q12H PRN PO Moderate constipation; Start 06/19/17 at 10:15; Stop 06/19/17 at 10:46; Status DC Sodium Bicarbonate 75 meq/Dextrose/ Sodium Chloride 1,075 ml @ 100 mls/hr [id number] IV Last administered on 06/13/17at 10:45; Start 06/12/17 at 11:30; Stop 06/13/17 at 17:39; Status DC Sodium Bicarbonate 75 meq/Sodium Chloride 1,075 ml @ 100 mls/hr [id number] IV Last administered on 06/11/17at 21:38; Start 06/11/17 at 17:45; Stop 06/12/17 at 11:25; Status DC Sodium Chloride 500 ml @ 500 mls/hr BOLUS ONCE IV Last administered on at 03:15; Start 06/22/17 at 03:00; Stop 06/22/17 at 03:59; Status DC Sodium Chloride (NS Flush) 2 ml BID IV FLUSH ; Start 06/19/17 at 21:00; Stop 06/19 at 21:00; Status DC Sodium Phosphate 30 mmol/Sodium Chloride 260 ml @ 43.333 mls/ hr ONCE ONCE IV Last administered on 06/20/17at 15:08; Start 06/20/17 at 11:00; Stop 06/20/17 at 16:59; Status DC Vancomycin HCl (VANCOMYCIN for oral use only) 250 mg QID PO Last administered on 06/23/17at 09:04; Start 06/20/17 at 13:00 A/P Assessment and Plan Dehydration w/ ARF likely due to poor oral intake and failure to thrive Renal function improved with IVF rehydration and oral intake. repeated calorie count in process. psychotherapist counselor following. 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 Marinol to assist with anorexia Dietary consulted- continue ensure with assisted feeding and repeated calorie count in process. Appreciate Palliative care consult to assist in determination of goals of this consultation future long-term goals Increased Marinol TO 5 mg by mouth twice a day Hypernatremia due to dehydration -resolved. Hypokalemia Resolved. Left-sided contractures with poor functional capacity Physical therapy and occupational therapy No evidence of CVA on CT of brain Stage II sacral ulcer Wound care nurse evaluated patient and continue dressing recommendations ordered Follow clinically Recent C. difficile colitis Asymptomatic, formed stools-- DIARRHEA continue Vanco. Urinary tract infection with culture results back for Escherichia coli and Klebsiella with Ray insertion back in Jun 13 - stop IV antibiotic. Vitamin D deficiency Continue vitamin D supplementation as tolerated DVT prophylaxis SCD Discharge Planning calorie count in process. d/w the palliative care today; will d/w the family again regarding the goals of care and possible hospice. Danelle Winter MD Jun 23, 2017 09:37
--- NOTE | 2017-06-23 13:03 | EKG ---
Date Performed: 06/22/2017 Time Performed: 12:44:26 PTAGE: 72 years EKG: SINUS TACHYCARDIA WITH SHORT [place] INTERVAL NONSPECIFIC T-WAVE ABNORMALITY ABNORMAL RHYTHM ECG PREVIOUS TRACING : 06/11/2017 14.09 DOCTOR: Surya Novak Interpretating Date/Time 06/23/2017 12:55:54
[2017-06-23] MEDS: DRONABINOL 5 MG CAP PO SCH ×2 (13:30→16:34)
--- NOTE | 2017-06-23 13:50 | HHI.HCPN ---
Reason for visit a. To assist with evaluation and management of symptoms including: depression, worsening weakness, failure to thrive. b. To assist medical decision maker(s) with: better understanding of current medical conditions; weighing benefits/burdens of medical treatment options; making medical treatment decisions. Subjective/Interval History INTERVAL NOTE: The patient is less alert today. She remains afebrile. She has not been eating much, taking very few calories in. She denies pain at this time. Family/friend interactions Multiple phone calls to daughter, message left on voicemail . Advance Directives Living Will: Never completed Health Care Surrogate: Never completed Durable Power of Threader: Never completed Objective Vital Signs Date Time Temp Pulse Resp B/P (MAP) Pulse Ox O2 Delivery O2 Flow Rate FiO2 06/23/17 12:00 98.2 108 18 106/50 (68) 100 06/23/17 08:00 97.6 115 17 113/58 (76) 100 06/23/17 04:00 97.6 123 16 108/63 (78) 97 06/23/17 00:00 96.4 115 16 102/58 (73) 99 06/22/17 20:00 96.0 117 18 123/52 (75) 99 06/22/17 16:41 98.1 95 16 101/57 (72) 100 Intake & Output 06/23/17 06/23/17 07:00 19:00 Intake Total 1000 ml Balance 1000 ml IV Total 1000 ml Physical Exam CONSTITUTIONAL/GENERAL: This is frail, weak lady, lying in the bed SKIN: No jaundice, rashes, or lesions. NECK: Trachea midline. Supple, nontender. No palpable thyroid enlargement or nodularity. CARDIOVASCULAR: Regular rate and rhythm without murmurs, gallops, or rubs. No JVD. Peripheral pulses symmetric. RESPIRATORY/CHEST: Symmetric, unlabored respirations. Clear to auscultation. Breath sounds equal bilaterally. No wheezes, rales, or rhonchi. GASTROINTESTINAL: Abdomen soft, non-tender, nondistended. No hepato-splenomegaly , or palpable masses. No guarding. Bowel sounds present. MUSCULOSKELETAL: Extremities without clubbing, cyanosis, or edema. No joint tenderness or effusion noted. . No mottling or clubbing. Moves all extremity but weak. NEUROLOGICAL: Weak, somewhat lethargic now PSYCHIATRIC: No obvious anxiety/depression. no apparent hallucinations or other psychotic thought process. . Diagnostic Tests Laboratory Laboratory Tests Test 06/21/17 04:52 06/22/17 03:52 06/22/17 07:25 06/22/17 18:00 White Blood Count 14.5 TH/MM3 (4.0-11.0) 16.0 TH/MM3 (4.0-11.0) Red Blood Count 3.95 MIL/MM3 (4.00-5.30) 3.35 MIL/MM3 (4.00-5.30) Hemoglobin 11.4 GM/DL (11.6-15.3) 9.5 GM/DL (11.6-15.3) Hematocrit 33.9 % (35.0-46.0) 29.0 % (35.0-46.0) Mean Corpuscular Volume 85.9 FL (80.0-100.0) 86.5 FL (80.0-100.0) Mean Corpuscular Hemoglobin 28.8 PG (27.0-34.0) 28.4 PG (27.0-34.0) Mean Corpuscular Hemoglobin Concent 33.5 % (32.0-36.0) 32.8 % (32.0-36.0) Red Cell Distribution Width 16.9 % (11.6-17.2) 16.8 % (11.6-17.2) Platelet Count 256 TH/MM3 (150-450) 225 TH/MM3 (150-450) Mean Platelet Volume 9.3 FL (7.0-11.0) 8.7 FL (7.0-11.0) Neutrophils (%) (Auto) 83.2 % (16.0-70.0) Lymphocytes (%) (Auto) 7.5 % (9.0-44.0) Monocytes (%) (Auto) 7.8 % (0.0-8.0) Eosinophils (%) (Auto) 0.9 % (0.0-4.0) Basophils (%) (Auto) 0.6 % (0.0-2.0) Neutrophils # (Auto) 12.0 TH/MM3 (1.8-7.7) Lymphocytes # (Auto) 1.1 TH/MM3 (1.0-4.8) Monocytes # (Auto) 1.1 TH/MM3 (0-0.9) Eosinophils # (Auto) 0.1 TH/MM3 (0-0.4) Basophils # (Auto) 0.1 TH/MM3 (0-0.2) CBC Comment AUTO DIFF AUTO DIFF Differential Total Cells Counted 100 100 Neutrophils % (Manual) 80 % (16-70) 90 % (16-70) Band Neutrophils % 1 % (0-6) 3 % (0-6) Lymphocytes % 14 % (9-44) 3 % (9-44) Monocytes % 3 % (0-8) 2 % (0-8) Neutrophils # (Manual) 12.0 TH/MM3 (1.8-7.7) 14.9 TH/MM3 (1.8-7.7) Metamyelocytes 2 % (0-1) Differential Comment FINAL DIFF MANUAL FINAL DIFF MANUAL [place] Cells (NORMAL) Acanthocytes OCC (NORMAL) Hematology Comments Blood Urea Nitrogen 21 MG/DL (7-18) 19 MG/DL (7-18) Creatinine 0.96 MG/DL (0.50-1.00) 0.74 MG/DL (0.50-1.00) Random Glucose 83 MG/DL (74-106) 116 MG/DL (74-106) Total Protein 5.9 GM/DL (6.4-8.2) Albumin 2.2 GM/DL (3.4-5.0) Calcium Level 9.0 MG/DL (8.5-10.1) 8.4 MG/DL (8.5-10.1) Phosphorus Level 3.8 MG/DL (2.5-4.9) 2.4 MG/DL (2.5-4.9) Magnesium Level 1.9 MG/DL (1.5-2.5) 1.5 MG/DL (1.5-2.5) Alkaline Phosphatase 68 U/L (45-117) Aspartate Amino Transf (AST/SGOT) 21 U/L (15-37) Alanine Aminotransferase (ALT/SGPT) LESS THAN 6 U/L (10-53) Total Bilirubin 0.3 MG/DL (0.2-1.0) Sodium Level 141 MEQ/L (136-145) 145 MEQ/L (136-145) Potassium Level 3.7 MEQ/L (3.5-5.1) 4.1 MEQ/L (3.5-5.1) Chloride Level 111 MEQ/L (98-107) 115 MEQ/L (98-107) Carbon Dioxide Level 16.2 MEQ/L (21.0-32.0) 19.8 MEQ/L (21.0-32.0) Anion Gap 14 MEQ/L (5-15) 10 MEQ/L (5-15) Estimat Glomerular Filtration Rate 69 ML/MIN (>89) 94 ML/MIN (>89) Eosinophils % 2 % (0-4) Platelet Estimate NORMAL (NORMAL) Platelet Morphology Comment NORMAL (NORMAL) Ovalocytes 1+ (NORMAL) Lactic Acid Level 2.2 mmol/L (0.4-2.0) 1.2 mmol/L (0.4-2.0) Urine Color YELLOW (YELLW/STRAW) Urine Turbidity CLEAR (CLEAR) Urine pH 5.5 (5.0-8.5) Urine Specific [place] 1.011 (1.002-1.035) Urine Protein TRACE mg/dL (NEG-TRACE) Urine Glucose (UA) NEG mg/dL (NEG) Urine Ketones NEG mg/dL (NEG) Urine Occult Blood NEG (NEG) Urine Nitrite NEG (NEG) Urine Bilirubin NEG (NEG) Urine Urobilinogen LESS THAN 2.0 MG/DL (LESS Urine Leukocyte Esterase NEG (NEG) Urine RBC LESS THAN 1 /hpf (0-3) Urine WBC 1 /hpf (0-5) Urine Hyaline Casts 4 /lpf (RARE) Urine Mucus FEW /lpf (OCC) Microscopic Urinalysis Comment CULT NOT INDICATED Result Diagram: 06/22/17 0352 06/22/17 0352 Microbiology Microbiology Date/Time Source Procedure Growth Status 06/22/17 05:30 Blood Peripheral Aerobic Blood Culture - Preliminary NO GROWTH IN 1 DAY Resulted 06/22/17 05:30 Blood Peripheral Anaerobic Blood Culture - Preliminary NO GROWTH IN 1 DAY Resulted 06/22/17 05:20 Blood Peripheral Aerobic Blood Culture - Preliminary NO GROWTH IN 1 DAY Resulted 06/22/17 05:20 Blood Peripheral Anaerobic Blood Culture - Preliminary NO GROWTH IN 1 DAY Resulted Imaging Last Impressions Renal Ultrasound 06/11/17 0000 Signed Impressions: Service Date/Time: Sunday, June 11, 2017 17:30 - CONCLUSION: 1. Mild echogenic kidneys characteristic of medical renal disease. Small renal calcifications. Delonte Gonzalez MD Head CT 06/11/17 0000 Signed Impressions: Service Date/Time: Sunday, June 11, 2017 20:44 - CONCLUSION: 1. No acute intracranial abnormalities. Delonte Gonzalez MD Abdomen X-Ray 06/11/17 0000 Signed Impressions: Service Date/Time: Sunday, June 11, 2017 17:12 - CONCLUSION: Limited examination with no obvious obstruction or pneumoperitoneum. Lung bases are clear. Eduardo Rosas MD Assessment and Plan Disease Oriented Problem List: (1) failure to thrive, worsening cachexia (2) Parkinsonian features (3) Rheumatoid arthritis (4) Acute kidney insufficiency (5) Malnutrition Symptom Scale: (1) Malnutrition 0-10 Scale: Unable to quantify (2) Pain 0-10 Scale: 0 (denies pain currently, but has hx of rhematoid arthritis.) Pertinent Non-Medical Issues Psychosocial: have been debiliated by rhematoid arthritis for years and could not work. Spiritual:did not address this visit. Legal: health care proxy are daughters Kathy Jeong [phone] Daughter. Courtney Bajwa [phone] Daughter Ethical issues impacting care:not at the current time Important Contacts Kathy Jeong [phone] Daughter. Courtney Bajwa [phone] Daughter Prognosis 72 year old with mal- nutrition and possibly untreated parkinsonian features- Neuromuscularlly since starting sinemet, pt motor function, speech has improved as documented by attending physicians. Nutrition remains a challenge. Prognosis is guarded and remains to see how much of a rebound pt will have after continue titration of sinemet. Code Status: Full Code Plan * FULL CODE * DECISION-MAKING: Initially, the Patient Had Capacity for Decision-Making When She Was Saying She Would Not Accept a PEG Tube or Tracheostomy. Now she is more lethargic. Her 2 daughters will be her healthcare proxy decision makers. * SYMPTOMS: The patient is frail, cachexia, failure to thrive. Her Parkinsonian symptoms seem to be a little improved on Sinemet, but the patient remains profoundly weak and taking very few calories orally. * GOALS: The daughters were hoping to see how much improvement may occur with the Sinemet treatment of her Parkinsonian symptoms. However, the patient remains profoundly weak, cachexia, and anorexic. I am awaiting a phone call back to further discuss this with the daughter; the patient would be hospice appropriate if the family goals evolve to focus on comfort care. * Palliative care will continue to follow the patient during this hospitalization. . Time Spent Total Floor Time (mins): 36 Face to Face Time (mins): 14 >50% Counseling/Coord of Care: Yes (d/w Dr. Winter and with RN) Attestation To help prompt me to consider important information that might be impacting today's encounter and assessment, information from prior notes written by myself or my colleagues may have been "brought forward" into today's note. My signature on this note, however, is an attestation that I personally performed the exam, history, and/or decision-making noted today, and, unless otherwise indicated, the interactions with patient, family, and staff as well as the review of records all occurred today. I also attest that the listed assessment and stated plan reflect my best clinical judgment today based on the combination of historical information, prior notes, and today's exam/ interactions. When time spent is documented, it refers only to time spent today by the signer, or if indicated, combined time spent today by collaborating physician/nurse practitioner. Rain Soler MD Jun 23, 2017 13:50
--- NOTE | 2017-06-23 14:09 | HHI.HCPN ---
I was able to speak with daughter Kathy by telephone. She says that she and her sister realizes that the patient continues to decline and has no appetite and is not taking in adequate calories to sustain life. They do want to speak with hospice, and they want to find a different nursing facility for the patient to return back to. Hospice consult placed. Rain James MD Jun 23, 2017 14:09
--- NOTE | 2017-06-23 15:26 | PD.WCN.NOT ---
Wound Consult Description: Received follow up consult for sacral wound by Communicated with: Zo KELSEY , Recommendation: 1) Reposition patient every 2 hours for comfort and offloading 2) Cleanse sacral wound with normal saline pat dry ,skin prep periwound 3) Apply Santyl to moisten fluffed gauze apply to wound base and all undermining areas. 4) Cover with dry dressing and change daily 5) Follow up with out patient wound center Additional Information: Patient was seen today on by telegraphic typewriter mechanic and Zo KELSEY for follow up of sacral wound.Patient alert in bed upon writers arrival with no current complaint of pain or discomfort.Patient required moderate assistance to reposition to Right side dressing removed from sacrum to reveal a unstageable pressure injury that measures 3.2cm x 1.9cm x 0.9cm with undermining noted from 12-6 O'clock with the max depth being at 5 O'clock @ 1.3cm.Periwound is unremarkable with no erythema noted.Wound base is 100% adhered yellow slough no visible tissue present.Wound cleansed with normal saline pat dry moistened fluffed gauze applied to wound base and surrounding undermining.Covered with dry dressing and Calazime applied to bilateral ischial for prevention. Arturo Mahan [facility] Jun 23, 2017 15:26
[2017-06-23] MEDS: oxyCODONE/ACETAMINOPHEN 10 MG/325 MG TAB PO PRN (21:56)
[2017-06-24] VITALS: BP 111/61; PULSE 112; RESP 18; TEMP 97.7; O2SAT 98
[2017-06-24 04:00] VITALS: BP 109/59; PULSE 114; RESP 18; TEMP 97; O2SAT 92
[2017-06-24 08:00] VITALS: BP 118/58; PULSE 109; RESP 16; TEMP 97.2; O2SAT 100
--- NOTE | 2017-06-24 11:23 | HHI.PR ---
Subjective Remarks Pt asleep when I came in but easily arousable. states she hasn't eaten anything this morning but she isn't hungry. Denies any pain, SOB, nausea or vomiting. Discussed w RN, hospice has been consulted. Apparently they did speak w family last night but note not yet available. Objective Vitals Vital Signs Date Time Temp Pulse Resp B/P (MAP) Pulse Ox O2 Delivery O2 Flow Rate FiO2 06/24/17 08:00 97.2 109 16 118/58 (78) 100 06/24/17 04:00 97.0 114 18 109/59 (76) 92 06/24/17 00:00 97.7 112 18 111/61 (78) 98 06/23/17 20:00 97.7 104 18 111/42 (65) 100 06/23/17 16:33 111 120/77 (91) 06/23/17 16:00 97.2 111 18 98 06/23/17 12:00 98.2 108 18 106/50 (68) 100 I/O 06/23/17 06/23/17 06/23/17 06/24/17 06/24/17 06/24/17 07:00 15:00 23:00 07:00 15:00 23:00 Intake Total 1000 ml 720 ml Output Total 700 ml Balance 1000 ml 20 ml Intake Oral 720 ml IV Total 1000 ml Output Urine Total 700 ml Result Diagram: 06/22/17 0352 06/22/17 0352 Imaging Last Impressions Renal Ultrasound 06/11/17 0000 Signed Impressions: Service Date/Time: Sunday, June 11, 2017 17:30 - CONCLUSION: 1. Mild echogenic kidneys characteristic of medical renal disease. Small renal calcifications. Delonte Gonzalez MD Head CT 06/11/17 0000 Signed Impressions: Service Date/Time: Sunday, June 11, 2017 20:44 - CONCLUSION: 1. No acute intracranial abnormalities. Delonte Gonzalez MD Abdomen X-Ray 06/11/17 0000 Signed Impressions: Service Date/Time: Sunday, June 11, 2017 17:12 - CONCLUSION: Limited examination with no obvious obstruction or pneumoperitoneum. Lung bases are clear. Eduardo Rosas MD Objective Remarks GENERAL: cachectic, frail. Looks tired CARDIOVASCULAR: Regular rate and regular rhythm without murmurs. RESPIRATORY: Clear to auscultation. Breath sounds equal bilaterally. No wheezes GASTROINTESTINAL: Abdomen soft, non-tender, nondistended. Normal, active bowel sounds MUSCULOSKELETAL: Extremities without edema. Procedures NONE A/P Assessment and Plan Dehydration w/ ARF likely due to poor oral intake and failure to thrive Renal function improved with IVF rehydration and oral intake. Calorie count done and recs from RD will be made today overnight houseperson following. appreciate recs Dysphagia, Failure to Thrive, severe Malnutrition Dysphagia Mostly resolved following Sinemet, possibly likely due to parkinsons type movement disorder with continued weakness Appreciate Neurology consultation will continue to titrate her Sinemet doses to 3 times a day . Marinol to assist with anorexia Dietary consulted- continue ensure with assisted feeding. reviewed palliative care's note and hospice has been consulted. I was told they did speak w pt last night but official note not yet available. Increased Marinol TO 5 mg by mouth twice a day Hypernatremia due to dehydration -resolved. Hypokalemia Resolved. Left-sided contractures with poor functional capacity Physical therapy and occupational therapy No evidence of CVA on CT of brain Stage II sacral ulcer Wound care nurse evaluated patient and continue dressing recommendations ordered Follow clinically Recent C. difficile colitis Asymptomatic, formed stools continue Vanco. Urinary tract infection with culture results back for Escherichia coli and Klebsiella with Ray insertion back in Jun 13 - stop IV antibiotic. Vitamin D deficiency Continue vitamin D supplementation as tolerated DVT prophylaxis SCD Discharge Planning hospice has been consulted and awaiting recs. f/u on recs Per nursing staff, pt refused PEG tube in past Rita Quiroz MD Jun 24, 2017 11:22
[2017-06-24] MEDS: CARBIDOPA/LEVODOPA 25 MG/100 MG TAB PO SCH ×3 (11:42→17:53)
[2017-06-24] MEDS: HEPARIN SODIUM - SQ 10,000 UNITS/ML VIAL SQ SCH ×2 (11:42→21:02)
[2017-06-24] MEDS: LACTOBACILLUS ACIDOPHILUS TAB PO SCH ×2 (11:42→21:01)
[2017-06-24] MEDS: predniSONE 10 MG TAB PO SCH (11:42)
[2017-06-24] MEDS: CHOLECALCIFEROL (VIT D3) 5000 UNIT CAP PO SCH (11:42)
[2017-06-24] MEDS: SODIUM CHLORIDE 0.9% FLUSH 10 ML FLUSH IV FLUSH SCH ×2 (11:43→21:02)
[2017-06-24] MEDS: DRONABINOL 5 MG CAP PO SCH ×2 (11:47→16:00)
[2017-06-24] MEDS: VANCOMYCIN 500 MG VIAL (FOR ORAL USE ONLY) PO SCH ×4 (11:47→21:01)
[2017-06-24] MEDS: oxyCODONE/ACETAMINOPHEN 10 MG/325 MG TAB PO PRN ×2 (11:52→21:03)
[2017-06-24 12:00] VITALS: BP 112/56; PULSE 100; RESP 18; TEMP 97.8; O2SAT 98
--- NOTE | 2017-06-24 15:07 | HHI.HCPN ---
Reason for visit a. To assist with evaluation and management of symptoms including: depression, worsening weakness, failure to thrive. b. To assist medical decision maker(s) with: better understanding of current medical conditions; weighing benefits/burdens of medical treatment options; making medical treatment decisions. Subjective/Interval History INTERVAL NOTE: The patient is still somewhat lethargic. She remains afebrile. She has not been eating much, taking very few calories in, but staff thought may be a little better since daughter brought in dentures. She denies pain at this time. Family/friend interactions spoke w daughter yesterday PM; agred to hospice consult, but daughters have elected to "wait a little longer" and keep trying to improve oral intake.. . Advance Directives Living Will: Never completed Health Care Surrogate: Never completed Durable Power of Medication Care Manager: Never completed Objective Vital Signs Date Time Temp Pulse Resp B/P (MAP) Pulse Ox O2 Delivery O2 Flow Rate FiO2 06/24/17 12:00 97.8 100 18 112/56 (74) 98 06/24/17 08:00 97.2 109 16 118/58 (78) 100 06/24/17 04:00 97.0 114 18 109/59 (76) 92 06/24/17 00:00 97.7 112 18 111/61 (78) 98 06/23/17 20:00 97.7 104 18 111/42 (65) 100 06/23/17 16:33 111 120/77 (91) 06/23/17 16:00 97.2 111 18 98 Physical Exam CONSTITUTIONAL/GENERAL: This is frail, weak lady, lying in the bed, lethargic SKIN: No jaundice, rashes, or lesions. NECK: Trachea midline. Supple, nontender. No palpable thyroid enlargement or nodularity. CARDIOVASCULAR: Regular rate and rhythm without murmurs, gallops, or rubs. No JVD. Peripheral pulses symmetric. RESPIRATORY/CHEST: Symmetric, unlabored respirations. Clear to auscultation. Breath sounds equal bilaterally. No wheezes, rales, or rhonchi. GASTROINTESTINAL: Abdomen soft, non-tender, nondistended. No hepato-splenomegaly , or palpable masses. No guarding. Bowel sounds present. MUSCULOSKELETAL: Extremities without clubbing, cyanosis, or edema. No joint tenderness or effusion noted. . No mottling or clubbing. Moves all extremity but weak. NEUROLOGICAL: Weak, somewhat lethargic PSYCHIATRIC: No obvious anxiety/depression. no apparent hallucinations or other psychotic thought process. . Diagnostic Tests Laboratory Laboratory Tests Test 06/22/17 03:52 06/22/17 07:25 06/22/17 18:00 White Blood Count 16.0 TH/MM3 (4.0-11.0) Red Blood Count 3.35 MIL/MM3 (4.00-5.30) Hemoglobin 9.5 GM/DL (11.6-15.3) Hematocrit 29.0 % (35.0-46.0) Mean Corpuscular Volume 86.5 FL (80.0-100.0) Mean Corpuscular Hemoglobin 28.4 PG (27.0-34.0) Mean Corpuscular Hemoglobin Concent 32.8 % (32.0-36.0) Red Cell Distribution Width 16.8 % (11.6-17.2) Platelet Count 225 TH/MM3 (150-450) Mean Platelet Volume 8.7 FL (7.0-11.0) CBC Comment AUTO DIFF Differential Total Cells Counted 100 Neutrophils % (Manual) 90 % (16-70) Band Neutrophils % 3 % (0-6) Lymphocytes % 3 % (9-44) Monocytes % 2 % (0-8) Eosinophils % 2 % (0-4) Neutrophils # (Manual) 14.9 TH/MM3 (1.8-7.7) Differential Comment FINAL DIFF MANUAL Platelet Estimate NORMAL (NORMAL) Platelet Morphology Comment NORMAL (NORMAL) Ovalocytes 1+ (NORMAL) Blood Urea Nitrogen 19 MG/DL (7-18) Creatinine 0.74 MG/DL (0.50-1.00) Random Glucose 116 MG/DL (74-106) Calcium Level 8.4 MG/DL (8.5-10.1) Phosphorus Level 2.4 MG/DL (2.5-4.9) Magnesium Level 1.5 MG/DL (1.5-2.5) Sodium Level 145 MEQ/L (136-145) Potassium Level 4.1 MEQ/L (3.5-5.1) Chloride Level 115 MEQ/L (98-107) Carbon Dioxide Level 19.8 MEQ/L (21.0-32.0) Anion Gap 10 MEQ/L (5-15) Estimat Glomerular Filtration Rate 94 ML/MIN (>89) Lactic Acid Level 2.2 mmol/L (0.4-2.0) 1.2 mmol/L (0.4-2.0) Urine Color YELLOW (YELLW/STRAW) Urine Turbidity CLEAR (CLEAR) Urine pH 5.5 (5.0-8.5) Urine Specific [place] 1.011 (1.002-1.035) Urine Protein TRACE mg/dL (NEG-TRACE) Urine Glucose (UA) NEG mg/dL (NEG) Urine Ketones NEG mg/dL (NEG) Urine Occult Blood NEG (NEG) Urine Nitrite NEG (NEG) Urine Bilirubin NEG (NEG) Urine Urobilinogen LESS THAN 2.0 MG/DL (LESS Urine Leukocyte Esterase NEG (NEG) Urine RBC LESS THAN 1 /hpf (0-3) Urine WBC 1 /hpf (0-5) Urine Hyaline Casts 4 /lpf (RARE) Urine Mucus FEW /lpf (OCC) Microscopic Urinalysis Comment CULT NOT INDICATED Result Diagram: 06/22/1735106/22/17 0352 Microbiology Microbiology Date/Time Source Procedure Growth Status 06/22/17 05:30 Blood Peripheral Aerobic Blood Culture - Preliminary NO GROWTH IN 2 DAYS Resulted 06/22/17 05:30 Blood Peripheral Anaerobic Blood Culture - Preliminary NO GROWTH IN 2 DAYS Resulted 06/22/17 05:20 Blood Peripheral Aerobic Blood Culture - Preliminary NO GROWTH IN 2 DAYS Resulted 06/22/17 05:20 Blood Peripheral Anaerobic Blood Culture - Preliminary NO GROWTH IN 2 DAYS Resulted Assessment and Plan Disease Oriented Problem List: (1) failure to thrive, worsening cachexia (2) Parkinsonian features (3) Rheumatoid arthritis (4) Acute kidney insufficiency (5) Malnutrition Symptom Scale: (1) Malnutrition 0-10 Scale: Unable to quantify (2) Pain 0-10 Scale: 0 (denies pain currently, but has hx of rhematoid arthritis.) Pertinent Non-Medical Issues Psychosocial: have been debiliated by rhematoid arthritis for years and could not work. Spiritual:did not address this visit. Legal: health care proxy are daughters Kathy Jeong [phone] Daughter. Courtney Acevesdox [phone] Daughter Ethical issues impacting care:not at the current time Important Contacts Kathy Jeong [phone] Daughter. Courtney Acevesdox [phone] Daughter Prognosis 72 year old with mal- nutrition and possibly untreated parkinsonian features- Neuromuscularlly since starting sinemet, pt motor function, speech has improved as documented by attending physicians. Nutrition remains a challenge. Prognosis is guarded and remains to see how much of a rebound pt will have after continue titration of sinemet. Code Status: Full Code Plan * FULL CODE * DECISION-MAKING: Initially, the Patient Had Capacity for Decision-Making When She Was Saying She Would Not Accept a PEG Tube or Tracheostomy. Now she is more lethargic. Her 2 daughters will be her healthcare proxy decision makers. * SYMPTOMS: The patient is frail, cachexia, failure to thrive. Her Parkinsonian symptoms seem to be a little improved on Sinemet, but the patient remains profoundly weak and taking very few calories orally. * GOALS: The daughters were hoping to see how much improvement may occur with the Sinemet treatment of her Parkinsonian symptoms. However, the patient remains profoundly weak, cachexia, and anorexic. Daughters consulted with hospice nurse, but have elected to continue aggressive care for now - giving pt more time to try to improve oral intake. * Palliative care will continue to follow the patient during this hospitalization. . Time Spent Total Floor Time (mins): 26 Face to Face Time (mins): 10 >50% Counseling/Coord of Care: Yes Attestation To help prompt me to consider important information that might be impacting today's encounter and assessment, information from prior notes written by myself or my colleagues may have been "brought forward" into today's note. My signature on this note, however, is an attestation that I personally performed the exam, history, and/or decision-making noted today, and, unless otherwise indicated, the interactions with patient, family, and staff as well as the review of records all occurred today. I also attest that the listed assessment and stated plan reflect my best clinical judgment today based on the combination of historical information, prior notes, and today's exam/ interactions. When time spent is documented, it refers only to time spent today by the signer, or if indicated, combined time spent today by collaborating physician/nurse practitioner. Rain Soler MD Jun 24, 2017 15:06
[2017-06-24 16:00] VITALS: BP 102/56; PULSE 103; RESP 16; TEMP 97.3; O2SAT 99
[2017-06-24] MEDS: LACTATED RINGER'S 1000 ML INJ 1,000 ML IV SCH (17:53)
[2017-06-24 20:50] VITALS: BP 113/52; PULSE 116; RESP 16; TEMP 97.6; O2SAT 99
[2017-06-24] MEDS ORDERED: COLLAGENASE OINT 30 GM TUBE TOPICAL PRN (21:00)
[2017-06-24] MEDS: COLLAGENASE OINT 30 GM TUBE TOPICAL SCH (21:00)
[2017-06-25 00:04] VITALS: BP 103/50; PULSE 119; RESP 16; TEMP 96.4; O2SAT 99
[2017-06-25] MEDS: LACTATED RINGER'S 1000 ML INJ 1,000 ML IV SCH ×3 (03:15→22:21)
[2017-06-25] MEDS: oxyCODONE/ACETAMINOPHEN 10 MG/325 MG TAB PO PRN ×3 (03:18→18:05)
[2017-06-25 04:40] VITALS: BP_SYST 113; BP_SYST 168; BP_DIAS 55; BP_DIAS 84; PULSE 100; PULSE 84; RESP 18; TEMP 96.9; O2SAT 97; O2SAT 98
[2017-06-25 08:00] VITALS: BP 114/74; PULSE 116; RESP 17; TEMP 96.4; O2SAT 99
[2017-06-25] MEDS: SODIUM CHLORIDE 0.9% FLUSH 10 ML FLUSH IV FLUSH SCH ×2 (09:00→21:00)
[2017-06-25] MEDS: LACTOBACILLUS ACIDOPHILUS TAB PO SCH ×2 (09:35→22:18)
[2017-06-25] MEDS: CARBIDOPA/LEVODOPA 25 MG/100 MG TAB PO SCH ×3 (09:35→18:01)
[2017-06-25] MEDS: CHOLECALCIFEROL (VIT D3) 5000 UNIT CAP PO SCH (09:35)
[2017-06-25] MEDS: VANCOMYCIN 500 MG VIAL (FOR ORAL USE ONLY) PO SCH (09:35)
[2017-06-25] MEDS: predniSONE 10 MG TAB PO SCH (09:35)
[2017-06-25] MEDS: COLLAGENASE OINT 30 GM TUBE TOPICAL SCH (09:35)
[2017-06-25] MEDS: HEPARIN SODIUM - SQ 10,000 UNITS/ML VIAL SQ SCH ×2 (09:35→22:20)
[2017-06-25] MEDS: DRONABINOL 5 MG CAP PO SCH ×2 (11:27→18:03)
--- NOTE | 2017-06-25 11:48 | HHI.PR ---
Subjective Remarks When I evaluated the patient earlier today, PT was in moving her to her side. Patient is experiencing pain and would like a pain pill. Denies any nausea or vomiting. She did not want anything to eat at this time. Complains of some itching. Objective Vitals Vital Signs Date Time Temp Pulse Resp B/P (MAP) Pulse Ox O2 Delivery O2 Flow Rate FiO2 06/25/17 08:00 96.4 116 17 114/74 (87) 99 06/25/17 04:40 96.9 100 18 113/55 (74) 97 06/25/17 00:04 96.4 119 16 103/50 (67) 99 06/24/17 20:50 97.6 116 16 113/52 (72) 99 06/24/17 16:00 97.3 103 16 102/56 (71) 99 06/24/17 12:00 97.8 100 18 112/56 (74) 98 I/O 06/24/17 06/24/17 06/24/17 06/25/17 06/25/17 06/25/17 07:00 15:00 23:00 07:00 15:00 23:00 Intake Total 240 ml Output Total 850 ml 400 ml Balance -610 ml -400 ml Intake Oral 240 ml Output Urine Total 850 ml 400 ml Result Diagram: 06/22/17 0352 06/22/17 0352 Imaging Last Impressions Renal Ultrasound 06/11/17 0000 Signed Impressions: Service Date/Time: Sunday, June 11, 2017 17:30 - CONCLUSION: 1. Mild echogenic kidneys characteristic of medical renal disease. Small renal calcifications. Delonte Gonzalez MD Head CT 06/11/17 0000 Signed Impressions: Service Date/Time: Sunday, June 11, 2017 20:44 - CONCLUSION: 1. No acute intracranial abnormalities. Delonte Gonzalez MD Abdomen X-Ray 06/11/17 0000 Signed Impressions: Service Date/Time: Sunday, June 11, 2017 17:12 - CONCLUSION: Limited examination with no obvious obstruction or pneumoperitoneum. Lung bases are clear. Eduardo Rosas MD Objective Remarks GENERAL: cachectic, frail. Looks tired but seems more alert this morning CARDIOVASCULAR: Regular rate and regular rhythm without murmurs. RESPIRATORY: Clear to auscultation. Breath sounds equal bilaterally. No wheezes GASTROINTESTINAL: Abdomen soft, non-tender, nondistended. Normal, active bowel sounds Procedures NONE A/P Assessment and Plan Dehydration w/ ARF likely due to poor oral intake and failure to thrive Renal function improved with IVF rehydration and oral intake. Calorie count done and recs from RD reviewed. Patient did eat 50% of her meals and recommendations are for assistance with meals and enlive supplements. RD following. appreciate recs. Family did bring in patient's dentures. Will monitor patient's p.o. intake closely. Consider restarting a calorie count early next week and see if she is continuing to improve Dysphagia, Failure to Thrive, severe Malnutrition Dysphagia Mostly resolved following Sinemet, possibly likely due to parkinsons type movement disorder with continued weakness Appreciate Neurology consultation will continue to titrate her Sinemet doses to 3 times a day . Marinol to assist with anorexia Dietary consulted- continue ensure with assisted feeding. reviewed palliative care's note and hospice has been consulted. Hospice did meet with daughter however daughter decided to continue treatment for now to see if she medically improves before considering hospice. on Marinol TO 5 mg by mouth twice a day Hypernatremia due to dehydration -resolved. Hypokalemia Resolved. Left-sided contractures with poor functional capacity Physical therapy and occupational therapy No evidence of CVA on CT of brain Stage II sacral ulcer Wound care nurse evaluated patient and continue dressing recommendations ordered Follow clinically Recent C. difficile colitis Asymptomatic, formed stools continue Vanco. Urinary tract infection with culture results back for Escherichia coli and Klebsiella with Ray insertion back in Jun 13 - stop IV antibiotic. Vitamin D deficiency Continue vitamin D supplementation as tolerated DVT prophylaxis SCD Discharge Planning nursing orders in place to assist pt w meals and encourage her. consider repeating franc counts early next week Per nursing staff, pt refused PEG tube in past Rita Quiroz MD Jun 25, 2017 11:48
[2017-06-25 12:00] VITALS: BP 116/58; PULSE 123; RESP 17; TEMP 97.7; O2SAT 98
[2017-06-25] MEDS ORDERED: VANCOMYCIN ORAL SOLUTION 25MG/ML PO SCH (13:00)
[2017-06-25] MEDS: diphenhydrAMINE HCL ELIXIR 12.5 MG/5 ML CUP PO PRN ×2 (14:58→22:21)
[2017-06-25] MEDS: VANCOMYCIN 25 MG/ML SUSP 100 ML BOTTLE PO SCH ×3 (14:58→22:20)
[2017-06-25 16:00] VITALS: BP 98/56; PULSE 119; RESP 17; TEMP 97.2; O2SAT 99
[2017-06-25 20:00] VITALS: BP 118/78; PULSE 118; RESP 17; TEMP 96.9; O2SAT 98
[2017-06-26] VITALS (9 sets, daily range): BP systolic 103–140; BP diastolic 50–80; PULSE 96–125; RESP 16–18; TEMP 96.5–98.1; O2SAT 97–100
[2017-06-26] MEDS: diphenhydrAMINE HCL ELIXIR 12.5 MG/5 ML CUP PO PRN ×3 (05:57→19:57)
[2017-06-26] MEDS: COLLAGENASE OINT 30 GM TUBE TOPICAL SCH (09:00)
[2017-06-26] MEDS: SODIUM CHLORIDE 0.9% FLUSH 10 ML FLUSH IV FLUSH SCH ×2 (09:00→19:56)
[2017-06-26] MEDS: CHOLECALCIFEROL (VIT D3) 5000 UNIT CAP PO SCH (10:16)
[2017-06-26] MEDS: predniSONE 10 MG TAB PO SCH (10:16)
[2017-06-26] MEDS: CARBIDOPA/LEVODOPA 25 MG/100 MG TAB PO SCH ×3 (10:16→17:05)
[2017-06-26] MEDS: LACTOBACILLUS ACIDOPHILUS TAB PO SCH ×2 (10:16→19:56)
[2017-06-26] MEDS: HEPARIN SODIUM - SQ 10,000 UNITS/ML VIAL SQ SCH ×2 (10:17→19:56)
[2017-06-26] MEDS: LACTATED RINGER'S 1000 ML INJ 1,000 ML IV SCH ×3 (10:17→19:57)
[2017-06-26] MEDS: VANCOMYCIN 25 MG/ML SUSP 100 ML BOTTLE PO SCH ×4 (10:17→19:56)
[2017-06-26] MEDS: DRONABINOL 5 MG CAP PO SCH ×2 (11:00→16:00)
--- NOTE | 2017-06-26 16:00 | HHI.PR ---
Subjective Remarks Patient remembers me from 10 days before. She looks more alert and oriented and is doing well with the Sinemet titration. Despite titrating Marinol, however, she still has minimal interest in eating. She is simply not hungry. Objective Vitals Vital Signs Date Time Temp Pulse Resp B/P (MAP) Pulse Ox O2 Delivery O2 Flow Rate FiO2 06/26/17 15:38 125 06/26/17 12:00 97.3 125 16 107/54 (71) 99 06/26/17 08:00 97.1 117 17 140/80 (100) 100 06/26/17 04:56 96.8 100 18 119/69 (86) 99 06/26/17 00:00 96 06/26/17 00:00 98.1 102 17 124/60 (81) 97 06/25/17 20:00 96.9 118 17 118/78 (91) 98 06/25/17 16:00 97.2 119 17 98/56 (70) 99 I/O 06/25/17 06/25/17 06/25/17 06/26/17 06/26/17 06/26/17 07:00 15:00 23:00 07:00 15:00 23:00 Intake Total 1000 ml 1360 ml 480 ml 1150 ml Output Total 400 ml 100 ml 600 ml Balance -400 ml 1000 ml 1260 ml -120 ml 1150 ml Intake Oral 474 ml 480 ml IV Total 1000 ml 412 ml 1150 ml Other 474 ml Output Urine Total 400 ml 100 ml 600 ml # Voids 1 # Bowel Movements 0 Result Diagram: 06/22/17 0352 06/22/17 0352 Objective Remarks GENERAL: Thin patient, generally weak, SKIN: Warm and dry. HEAD: Normocephalic. EYES: No scleral icterus. No injection or drainage. NECK: Supple, trachea midline. No JVD or lymphadenopathy. CARDIOVASCULAR: Regular rate and rhythm without murmurs, gallops, or rubs. RESPIRATORY: Breath sounds equal bilaterally. No accessory muscle use. GASTROINTESTINAL: Abdomen soft, non-tender, nondistended. NEURO: parkinson's symptoms improved following Sinemet doses BACK: Nontender without obvious deformity. No CVA tenderness. EXTREMITIES: trace edema in left ankle Procedures NONE A/P Assessment and Plan Dehydration w/ ARF Renal function improving daily with IVF rehydration Trouble obtaining labs today Dysphagia, Failure to Thrive, Malnutrition, Dehydration Related to untreated Parkinson's, now able to eat, but only eating 50% of meals Dietition following for recommendations Appreciate Palliative Medicine following Will continue to encourage PO intake, and assist with feeding Daughter has declined hospice at this time Continue Sinemet Continue Marinol and Reglan Left-sided contractures Improving with PT and OT No evidence of CVA on CT of brain Stage II sacral ulcer Wound care nurse consulted, dressing recommendations ordered Follow clinically Recent C. difficile colitis Asymptomatic, formed stools Vitamin D deficiency Continue vitamin D supplementation as tolerated DVT prophylaxis SCD Discharge Planning Awaiting calorie counts report Patient refused PEG tube last week Poncho Barbosa MD Jun 26, 2017 16:00
[2017-06-27] VITALS (7 sets, daily range): BP systolic 94–129; BP diastolic 48–66; PULSE 100–120; RESP 16–20; TEMP 97.2–98.6; O2SAT 97–99
[2017-06-27] MEDS: diphenhydrAMINE HCL ELIXIR 12.5 MG/5 ML CUP PO PRN ×3 (06:01→22:33)
[2017-06-27] MEDS: CARBIDOPA/LEVODOPA 25 MG/100 MG TAB PO SCH ×3 (07:58→17:57)
[2017-06-27] MEDS: LACTOBACILLUS ACIDOPHILUS TAB PO SCH ×2 (07:58→22:34)
[2017-06-27] MEDS: HEPARIN SODIUM - SQ 10,000 UNITS/ML VIAL SQ SCH ×2 (07:58→22:34)
[2017-06-27] MEDS: predniSONE 10 MG TAB PO SCH (07:58)
[2017-06-27] MEDS: CHOLECALCIFEROL (VIT D3) 5000 UNIT CAP PO SCH (07:58)
[2017-06-27] MEDS: VANCOMYCIN 25 MG/ML SUSP 100 ML BOTTLE PO SCH ×4 (07:59→22:34)
[2017-06-27] MEDS: COLLAGENASE OINT 30 GM TUBE TOPICAL SCH (08:03)
[2017-06-27] MEDS: SODIUM CHLORIDE 0.9% FLUSH 10 ML FLUSH IV FLUSH SCH ×2 (08:33→21:00)
[2017-06-27] MEDS: DRONABINOL 5 MG CAP PO SCH ×2 (10:23→15:49)
--- NOTE | 2017-06-27 13:49 | HHI.PR ---
Subjective Remarks Pt stated she doesn't like the puree foods, and renal diet selections. I explained if she is willing to eat, she can have anything she likes. She has a complaint of neck pain, but all of our solutions she had tried and they have not worked. Objective Vitals Vital Signs Date Time Temp Pulse Resp B/P (MAP) Pulse Ox O2 Delivery O2 Flow Rate FiO2 06/27/17 12:00 98.6 109 16 111/48 (69) 99 06/27/17 12:00 114 06/27/17 08:00 97.9 103 17 129/60 (83) 97 06/27/17 08:00 106 06/27/17 04:00 98.5 102 18 111/55 (73) 98 06/27/17 00:00 98.5 100 20 108/63 (78) 98 06/26/17 23:03 103 06/26/17 20:00 96.5 116 18 103/50 (67) 100 06/26/17 19:49 112 06/26/17 16:00 97.9 116 16 114/57 (76) 99 06/26/17 15:38 125 I/O 06/26/17 06/26/17 06/26/17 06/27/17 06/27/17 06/27/17 07:00 15:00 23:00 07:00 15:00 23:00 Intake Total 480 ml 1150 ml 600 ml 120 ml Output Total 600 ml 900 ml Balance -120 ml 1150 ml -300 ml 120 ml Intake Oral 480 ml 600 ml 120 ml IV Total 1150 ml Output Urine Total 600 ml 900 ml # Bowel Movements 2 Objective Remarks GENERAL: Thin patient, generally weak, SKIN: Warm and dry. HEAD: Normocephalic. EYES: No scleral icterus. No injection or drainage. NECK: Supple, trachea midline. No JVD or lymphadenopathy. CARDIOVASCULAR: Regular rate and rhythm without murmurs, gallops, or rubs. RESPIRATORY: Breath sounds equal bilaterally. No accessory muscle use. GASTROINTESTINAL: Abdomen soft, non-tender, nondistended. NEURO: parkinson's symptoms improved following Sinemet doses BACK: Nontender without obvious deformity. No CVA tenderness. EXTREMITIES: trace edema in left ankle Procedures NONE A/P Assessment and Plan Dysphagia, Failure to Thrive, Malnutrition, Dehydration Related to untreated Parkinson's, able to eat, but low interest in food. Switching to regular diet. Dietition following for recommendations Appreciate Palliative Medicine following Daughter has declined hospice at this time Continue Sinemet for Parkinson's Continue Marinol and Reglan for appetite stimulation Left-sided contractures Improving with PT and OT CT Brain was normal Stage II sacral ulcer Wound care nurse consulted, dressing recommendations ordered Follow clinically C. difficile colitis Continue Oral Vancomycin Vitamin D deficiency Vitamin D supplementation DVT prophylaxis SCD Discharge Planning Awaiting calorie counts report Patient refused PEG tube last week Poncho Barbosa MD Jun 27, 2017 13:49
[2017-06-27] MEDS: LACTATED RINGER'S 1000 ML INJ 1,000 ML IV SCH (15:34)
[2017-06-27] MEDS ORDERED: PANTOPRAZOLE SOD 40 MG DELAYED RELEASE TAB PO ONE (17:30)
[2017-06-27] MEDS: NYSTATIN SUSP 500,000 U/5 ML CUP SWISH-SWAL SCH ×2 (18:05→22:33)
[2017-06-27 18:40] LABS: AUTOMATED NEUTROPHIL # 8.8 TH/MM3 (1.8-7.7); BASOPHIL # 0.1 TH/MM3 (0-0.2); BASOPHIL % 0.8 % (0.0-2.0); EOSINOPHIL # 0.1 TH/MM3 (0-0.4); EOSINOPHIL % 0.5 % (0.0-4.0); HEMATOCRIT 23.8 % (35.0-46.0); HEMOGLOBIN 7.9 GM/DL (11.6-15.3); LYMPH % 6.5 % (9.0-44.0); LYMPHOCYTE # 0.7 TH/MM3 (1.0-4.8); MEAN CELL VOLUME 87.6 FL (80.0-100.0); MEAN CORPUSCULAR HEMOGLOBIN 29.1 PG (27.0-34.0); MEAN CORPUSCULAR HGB CONC 33.2 % (32.0-36.0); MEAN PLATELET VOLUME 8.4 FL (7.0-11.0); MONO % 7.3 % (0.0-8.0); MONOCYTE # 0.8 TH/MM3 (0-0.9); NEUT % 84.9 % (16.0-70.0); PLATELET COUNT 191 TH/MM3 (150-450); RED BLOOD COUNT 2.71 MIL/MM3 (4.00-5.30); RED CELL DISTRIBUTION WIDTH 17.6 % (11.6-17.2); WHITE BLOOD COUNT 10.4 TH/MM3 (4.0-11.0)
[2017-06-27 19:02] LABS: BICARBONATE 29.8 MEQ/L (21.0-32.0); CALCIUM 8.6 MG/DL (8.5-10.1); CREATININE 0.55 MG/DL (0.50-1.00)
[2017-06-28] VITALS (8 sets, daily range): BP systolic 95–143; BP diastolic 55–87; PULSE 90–114; RESP 16–20; TEMP 96.7–98.7; O2SAT 97–100
[2017-06-28] MEDS: LACTATED RINGER'S 1000 ML INJ 1,000 ML IV SCH ×3 (02:23→22:55)
[2017-06-28] MEDS: oxyCODONE/ACETAMINOPHEN 10 MG/325 MG TAB PO PRN ×2 (02:24→10:52)
[2017-06-28] MEDS: diphenhydrAMINE HCL ELIXIR 12.5 MG/5 ML CUP PO PRN ×2 (04:10→12:15)
[2017-06-28] MEDS ORDERED: ANAS1TAB PO (07:27)
[2017-06-28] MEDS: CARBIDOPA/LEVODOPA 25 MG/100 MG TAB PO SCH ×3 (08:26→17:27)
[2017-06-28] MEDS: CHOLECALCIFEROL (VIT D3) 5000 UNIT CAP PO SCH (08:26)
[2017-06-28] MEDS: LACTOBACILLUS ACIDOPHILUS TAB PO SCH ×2 (08:27→22:53)
[2017-06-28] MEDS: NYSTATIN SUSP 500,000 U/5 ML CUP SWISH-SWAL SCH ×4 (08:27→22:54)
[2017-06-28] MEDS: VANCOMYCIN 25 MG/ML SUSP 100 ML BOTTLE PO SCH ×4 (08:27→22:54)
[2017-06-28] MEDS: HEPARIN SODIUM - SQ 10,000 UNITS/ML VIAL SQ SCH ×2 (08:27→22:54)
[2017-06-28] MEDS: COLLAGENASE OINT 30 GM TUBE TOPICAL SCH (08:33)
[2017-06-28] MEDS: predniSONE 10 MG TAB PO SCH (08:35)
[2017-06-28] MEDS: SODIUM CHLORIDE 0.9% FLUSH 10 ML FLUSH IV FLUSH SCH ×2 (08:41→21:00)
[2017-06-28] MEDS: DRONABINOL 5 MG CAP PO SCH ×2 (10:44→16:31)
--- NOTE | 2017-06-28 11:10 | EKG ---
Date Performed: 06/27/2017 Time Performed: 17:47:21 PTAGE: 72 years EKG: SINUS TACHYCARDIA WITH SHORT [place] INTERVAL ABNORMAL RHYTHM ECG Since the prior tracing, there has been no significant change PREVIOUS TRACING : 06/22/2017 12.44 DOCTOR: Bandar Hdz Interpretating Date/Time 06/28/2017 11:04:50
--- NOTE | 2017-06-28 14:10 | HHI.PR ---
Subjective Remarks Yesterday Mrs. Jeong requested solid foods, regular diet. Today she has it , but is not eating well. She is in good spirits about it, but I've encouraged her again to eat more so that we can be assured that she is safe for going to a SNF without a feeding tube (which she doesn't want). Objective Vitals Vital Signs Date Time Temp Pulse Resp B/P (MAP) Pulse Ox O2 Delivery O2 Flow Rate FiO2 06/28/17 12:00 97.2 112 16 95/55 (68) 98 06/28/17 11:52 18 06/28/17 08:00 104 06/28/17 07:58 96.7 101 18 125/87 (100) 98 06/28/17 04:00 98.0 114 20 143/59 (87) 97 06/28/17 00:06 100 06/28/17 00:00 97.6 103 18 112/62 (79) 100 06/27/17 20:01 110 06/27/17 20:00 97.2 107 18 101/60 (74) 99 06/27/17 16:00 97.2 120 16 94/66 (75) 99 I/O 06/27/17 06/27/17 06/27/17 06/28/17 06/28/17 06/28/17 07:00 15:00 23:00 07:00 15:00 23:00 Intake Total 120 ml 360 ml 1120 ml Output Total 100 ml Balance 120 ml 360 ml 1020 ml Intake Oral 120 ml 360 ml 120 ml IV Total 1000 ml Output Urine Total 100 ml # Bowel Movements 2 3 Result Diagram: 06/27/17180106/27/171801 Objective Remarks GENERAL: Thin patient, generally weak, SKIN: Warm and dry. HEAD: Normocephalic. EYES: No scleral icterus. No injection or drainage. NECK: Supple, trachea midline. No JVD or lymphadenopathy. CARDIOVASCULAR: Regular rate and rhythm without murmurs, gallops, or rubs. RESPIRATORY: Breath sounds equal bilaterally. No accessory muscle use. GASTROINTESTINAL: Abdomen soft, non-tender, nondistended. NEURO: parkinson's symptoms improved following Sinemet doses BACK: Nontender without obvious deformity. No CVA tenderness. EXTREMITIES: trace edema in left ankle Procedures NONE A/P Problem List: (1) failure to thrive, worsening cachexia (2) Malnutrition ICD Code: E46 - Unspecified protein-calorie malnutrition (3) Parkinsonian features ICD Code: R25.9 - Unspecified abnormal involuntary movements (4) Rheumatoid arthritis ICD Code: M06.9 - Rheumatoid arthritis, unspecified Status: Chronic Assessment and Plan Dysphagia, Failure to Thrive, Malnutrition, Dehydration Related to untreated Parkinson's, able to eat now, but low interest in food. Needs new dentures, follow up outpatient, family to arrange Dietitian following for recommendations Appreciate Palliative Medicine following Continue Sinemet for Parkinson's Continue Marinol and Reglan for appetite stimulation Left-sided contractures Improving with PT and OT CT Brain was normal Stage II sacral ulcer Wound care nurse consulted, wound vac recommended by nurse Following clinically C. difficile colitis Continue Oral Vancomycin Vitamin D deficiency Vitamin D supplementation DVT prophylaxis SCD Discharge Planning Patient refused PEG tube last week Family is uninterested in hospice at this time Appropriate for SNF -Rehab placement in the next 1-2 days, family requests a different location than her previous center.. Poncho Barbosa MD Jun 28, 2017 14:10
[2017-06-28 19:56] LABS: AUTOMATED NEUTROPHIL # 7.7 TH/MM3 (1.8-7.7); BASOPHIL # 0.1 TH/MM3 (0-0.2); BASOPHIL % 0.7 % (0.0-2.0); EOSINOPHIL % 0.5 % (0.0-4.0); HEMOGLOBIN 8.5 GM/DL (11.6-15.3); LYMPH % 7.4 % (9.0-44.0); LYMPHOCYTE # 0.7 TH/MM3 (1.0-4.8); MEAN CELL VOLUME 87.6 FL (80.0-100.0); MEAN CORPUSCULAR HEMOGLOBIN 28.6 PG (27.0-34.0); MEAN CORPUSCULAR HGB CONC 32.6 % (32.0-36.0); MEAN PLATELET VOLUME 8.3 FL (7.0-11.0); MONOCYTE # 0.6 TH/MM3 (0-0.9); NEUT % 84.4 % (16.0-70.0); PLATELET COUNT 202 TH/MM3 (150-450); RED BLOOD COUNT 2.97 MIL/MM3 (4.00-5.30); RED CELL DISTRIBUTION WIDTH 17.6 % (11.6-17.2); WHITE BLOOD COUNT 9.1 TH/MM3 (4.0-11.0)
[2017-06-28 20:49] LABS: BANDS 3 % (0-6); CORRECTED NUCLEATED RBC 1 /100 WBC (0-0); LYMPHOCYTES 2 % (9-44); METAMYELOCYTES 3 % (0-1); MONOCYTES 6 % (0-8); NEUTROPHIL # MANUAL DIFF 8.3 TH/MM3 (1.8-7.7); NUCLEATED RED BLOOD CELL 1 (0-0); POLYS (SEG NEUTROPHILS) 85 % (16-70)
[2017-06-28 20:50] LABS: OVALOCYTES 1+ (NORMAL); SPHEROCYTES 1+ (NORMAL)
[2017-06-29] VITALS: BP 115/62; PULSE 89; RESP 15; TEMP 97.1; O2SAT 100
[2017-06-29 04:00] VITALS: BP 111/71; PULSE 81; RESP 16; TEMP 98.6; O2SAT 100
[2017-06-29 08:00] VITALS: BP 113/71; PULSE 78; RESP 15; TEMP 97.9; O2SAT 99
[2017-06-29] MEDS: CHOLECALCIFEROL (VIT D3) 5000 UNIT CAP PO SCH (08:52)
[2017-06-29] MEDS: HEPARIN SODIUM - SQ 10,000 UNITS/ML VIAL SQ SCH ×2 (08:52→23:42)
[2017-06-29] MEDS: VANCOMYCIN 25 MG/ML SUSP 100 ML BOTTLE PO SCH ×4 (08:52→23:44)
[2017-06-29] MEDS: predniSONE 10 MG TAB PO SCH (08:52)
[2017-06-29] MEDS: LACTOBACILLUS ACIDOPHILUS TAB PO SCH ×2 (08:52→23:42)
[2017-06-29] MEDS: ANASTROZOLE 1 MG TAB PO SCH (08:52)
[2017-06-29] MEDS: NYSTATIN SUSP 500,000 U/5 ML CUP SWISH-SWAL SCH ×4 (08:52→23:44)
[2017-06-29] MEDS: CARBIDOPA/LEVODOPA 25 MG/100 MG TAB PO SCH ×3 (08:52→16:55)
[2017-06-29] MEDS: COLLAGENASE OINT 30 GM TUBE TOPICAL SCH (08:53)
[2017-06-29] MEDS: SODIUM CHLORIDE 0.9% FLUSH 10 ML FLUSH IV FLUSH SCH ×2 (08:54→21:00)
[2017-06-29] MEDS: LACTATED RINGER'S 1000 ML INJ 1,000 ML IV SCH ×2 (08:54→16:55)
[2017-06-29] MEDS: DRONABINOL 5 MG CAP PO SCH ×2 (11:42→16:54)
[2017-06-29] MEDS: oxyCODONE/ACETAMINOPHEN 10 MG/325 MG TAB PO PRN (11:42)
--- NOTE | 2017-06-29 11:46 | PD.WCN.NOT ---
Wound Consult Recommendation: 1) Reposition patient every 2 hours for comfort and offloading 2) Cleanse sacral wound with normal saline pat dry ,skin prep periwound 3) Apply Santyl to moisten fluffed gauze apply to wound base and all undermining areas. 4) Cover with dry dressing and change daily 5) Follow up with out patient wound center Neg Pressure Wound Therapy Wound Location Wound Location: Sacral wound Wound Description Length: 3.0cm Width: 2.0cm Depth: 1.5cm Wound bed appearance: 50% non granulated red tissue 25% pink tissue 15% white tissue 10% yellow biofilm Periwound appearance: Unremarkable Settings Suction: 125 mmHg, Continuous Intensity: Low Other Information: Bridged, Windowpaned, Mushroomed Foam type: Black Number of pieces: 1 Additonal Information Patient was seen today on 7th floor by parts data writer for Wound VAC placement.Patient alert in bed parts data writer discussed new wound care orders patient agreed to wound vac placement.Patient repositioned to right side wound cleansed with normal saline pat dry skin prep applied to periwound and bridging area.Drape then applied to periwound and bridged to left hip.1 piece black sponge applied to wound base and bridged to left hip.Track pad applied suction started @125 mmHg with no leaks noted.Stoma paste applied to distal wound to prevent leak.patient tolerated wound care well. Arturo Mahan [facility] Jun 29, 2017 11:46
--- NOTE | 2017-06-29 11:50 | HHI.PR ---
Subjective Remarks Pt is feeling fine, less pain today. Still not eating well. Objective Vitals Vital Signs Date Time Temp Pulse Resp B/P (MAP) Pulse Ox O2 Delivery O2 Flow Rate FiO2 06/29/17 08:00 97.9 78 15 113/71 (85) 99 06/29/17 04:00 98.6 81 16 111/71 (84) 100 06/29/17 00:00 97.1 89 15 115/62 (79) 100 06/28/17 20:00 98.6 90 17 112/70 (84) 100 06/28/17 16:00 98.7 99 18 113/73 (86) 100 06/28/17 16:00 102 06/28/17 12:00 97.2 112 16 95/55 (68) 98 06/28/17 11:52 18 I/O 06/28/17 06/28/17 06/28/17 06/29/17 06/29/17 06/29/17 06:59 14:59 22:59 06:59 14:59 22:59 Intake Total 1120 ml 1480 ml 50 ml Output Total 100 ml 800 ml Balance 1020 ml 680 ml 50 ml Intake Oral 120 ml 480 ml 50 ml IV Total 1000 ml 1000 ml Output Urine Total 100 ml 800 ml # Voids 6 # Bowel Movements 3 Result Diagram: 06/28/17 1900 06/27/17 180 Objective Remarks GENERAL: Thin patient, generally weak, SKIN: Warm and dry. HEAD: Normocephalic. EYES: No scleral icterus. No injection or drainage. NECK: Supple, trachea midline. No JVD or lymphadenopathy. CARDIOVASCULAR: Regular rate and rhythm without murmurs, gallops, or rubs. RESPIRATORY: Breath sounds equal bilaterally. No accessory muscle use. GASTROINTESTINAL: Abdomen soft, non-tender, nondistended. NEURO: parkinson's symptoms improved following Sinemet doses BACK: Nontender without obvious deformity. No CVA tenderness. EXTREMITIES: trace edema in left ankle Procedures NONE A/P Problem List: (1) failure to thrive, worsening cachexia (2) Malnutrition ICD Code: E46 - Unspecified protein-calorie malnutrition (3) Parkinsonian features ICD Code: R25.9 - Unspecified abnormal involuntary movements (4) Rheumatoid arthritis ICD Code: M06.9 - Rheumatoid arthritis, unspecified Status: Chronic Assessment and Plan Dysphagia, Failure to Thrive, Malnutrition, Dehydration Related to untreated Parkinson's, able to eat now, but low interest in food. Needs new dentures, follow up outpatient, family to arrange Dietitian following for recommendations Appreciate Palliative Medicine following Continue Sinemet for Parkinson's Continue Marinol and Reglan for appetite stimulation Encourage meals, patient educated again about importance of nutrition in her recovery Will check updated weight Left-sided contractures Improving with PT and OT CT Brain was normal Stage II sacral ulcer Wound care nurse placed wound vac today Following clinically C. difficile colitis Continue Oral Vancomycin Vitamin D deficiency Vitamin D supplementation DVT prophylaxis SCD Discharge Planning Patient refused PEG or feeding tube again today Family is uninterested in hospice at this time Appropriate for SNF -Rehab placement in the next 1-2 days, family requests a different location than her previous center.. Poncho Barbosa MD Jun 29, 2017 11:50
[2017-06-29 12:00] VITALS: BP 115/75; PULSE 74; RESP 16; TEMP 98.2; O2SAT 100
--- NOTE | 2017-06-29 14:15 | HHI.HCPN ---
Reason for visit a. To assist with evaluation and management of symptoms including: failure to thrive, pruritis. b. To assist medical decision maker(s) with: better understanding of current medical conditions; weighing benefits/burdens of medical treatment options; making medical treatment decisions. Subjective/Interval History INTERVAL NOTE: Pt is alert. Pt still having the same issues with nutrition. With encouragement today, pt was able to almost finish her ensure shake for me at bedside. She endorse itiching especially her whole back. She had percocent for pain control which is more at her sacral area. Family/friend interactions I spoke with daughter. Pt and family goals are aggressive, and not hospice appropriate at this time. Again talk to family, and they say whenever they come in they bring food in and she eats. She ask about anastrazole, in which I said its been restarted. Talk to her about her pruritis which according to family has been a chronic issue. They are amenable to schedue benadrl daily and some lotion for dryness. I do not see a rash at this point in time. Try to set up time to meet face to face, but family could not come due to work, and only could come after hours. Kathy the daughter however is amenable to take phone call, and medical team may call at anytime. Advance Directives Living Will: Never completed Health Care Surrogate: Never completed Durable Power of Breeder Service Technician: Never completed Objective Vital Signs Date Time Temp Pulse Resp B/P (MAP) Pulse Ox O2 Delivery O2 Flow Rate FiO2 06/29/17 12:00 98.2 74 16 115/75 (88) 100 06/29/17 08:00 97.9 78 15 113/71 (85) 99 06/29/17 04:00 98.6 81 16 111/71 (84) 100 06/29/17 00:00 97.1 89 15 115/62 (79) 100 06/28/17 20:00 98.6 90 17 112/70 (84) 100 06/28/17 16:00 98.7 99 18 113/73 (86) 100 06/28/17 16:00 102 Intake & Output 06/29/17 06/29/17 07:00 19:00 Intake Total 1050 ml Balance 1050 ml Intake Oral 50 ml IV Total 1000 ml # Voids 6 Physical Exam CONSTITUTIONAL/GENERAL: This is frail, weak lady, lying in the bed, lethargic SKIN: No jaundice, rashes, or lesions. Particular attention place on the back , I do not see any rash. NECK: Trachea midline. Supple, nontender. No palpable thyroid enlargement or nodularity. CARDIOVASCULAR: Regular rate and rhythm without murmurs, gallops, or rubs. No JVD. Peripheral pulses symmetric. RESPIRATORY/CHEST: Symmetric, unlabored respirations. Clear to auscultation. Breath sounds equal bilaterally. No wheezes, rales, or rhonchi. GASTROINTESTINAL: Abdomen soft, non-tender, nondistended. No hepato-splenomegaly , or palpable masses. No guarding. Bowel sounds present. MUSCULOSKELETAL: Extremities without clubbing, cyanosis, or edema. No joint tenderness or effusion noted. . No mottling or clubbing. Moves all extremity but weak. NEUROLOGICAL: Weak, alert, follow commands. PSYCHIATRIC: No obvious anxiety/depression. no apparent hallucinations or other psychotic thought process. . Diagnostic Tests Laboratory Laboratory Tests Test 06/27/17 18:02 06/28/17 19:00 White Blood Count 10.4 TH/MM3 (4.0-11.0) 9.1 TH/MM3 (4.0-11.0) Red Blood Count 2.71 MIL/MM3 (4.00-5.30) 2.97 MIL/MM3 (4.00-5.30) Hemoglobin 7.9 GM/DL (11.6-15.3) 8.5 GM/DL (11.6-15.3) Hematocrit 23.8 % (35.0-46.0) 26.0 % (35.0-46.0) Mean Corpuscular Volume 87.6 FL (80.0-100.0) 87.6 FL (80.0-100.0) Mean Corpuscular Hemoglobin 29.1 PG (27.0-34.0) 28.6 PG (27.0-34.0) Mean Corpuscular Hemoglobin Concent 33.2 % (32.0-36.0) 32.6 % (32.0-36.0) Red Cell Distribution Width 17.6 % (11.6-17.2) 17.6 % (11.6-17.2) Platelet Count 191 TH/MM3 (150-450) 202 TH/MM3 (150-450) Mean Platelet Volume 8.4 FL (7.0-11.0) 8.3 FL (7.0-11.0) Neutrophils (%) (Auto) 84.9 % (16.0-70.0) 84.4 % (16.0-70.0) Lymphocytes (%) (Auto) 6.5 % (9.0-44.0) 7.4 % (9.0-44.0) Monocytes (%) (Auto) 7.3 % (0.0-8.0) 7.0 % (0.0-8.0) Eosinophils (%) (Auto) 0.5 % (0.0-4.0) 0.5 % (0.0-4.0) Basophils (%) (Auto) 0.8 % (0.0-2.0) 0.7 % (0.0-2.0) Neutrophils # (Auto) 8.8 TH/MM3 (1.8-7.7) 7.7 TH/MM3 (1.8-7.7) Lymphocytes # (Auto) 0.7 TH/MM3 (1.0-4.8) 0.7 TH/MM3 (1.0-4.8) Monocytes # (Auto) 0.8 TH/MM3 (0-0.9) 0.6 TH/MM3 (0-0.9) Eosinophils # (Auto) 0.1 TH/MM3 (0-0.4) 0.0 TH/MM3 (0-0.4) Basophils # (Auto) 0.1 TH/MM3 (0-0.2) 0.1 TH/MM3 (0-0.2) CBC Comment DIFF FINAL AUTO DIFF Differential Comment FINAL DIFF MANUAL Blood Urea Nitrogen 5 MG/DL (7-18) Creatinine 0.55 MG/DL (0.50-1.00) Random Glucose 88 MG/DL (74-106) Calcium Level 8.6 MG/DL (8.5-10.1) Sodium Level 140 MEQ/L (136-145) Potassium Level 3.5 MEQ/L (3.5-5.1) Chloride Level 105 MEQ/L (98-107) Carbon Dioxide Level 29.8 MEQ/L (21.0-32.0) Anion Gap 5 MEQ/L (5-15) Estimat Glomerular Filtration Rate 132 ML/MIN (>89) Troponin I 0.02 NG/ML (0.02-0.05) Differential Total Cells Counted 100 Neutrophils % (Manual) 85 % (16-70) Band Neutrophils % 3 % (0-6) Lymphocytes % 2 % (9-44) Monocytes % 6 % (0-8) Eosinophils % 1 % (0-4) Neutrophils # (Manual) 8.3 TH/MM3 (1.8-7.7) Metamyelocytes 3 % (0-1) Nucleated Red Blood Cells 1 /100 WBC (0-0) Platelet Estimate NORMAL (NORMAL) Platelet Morphology Comment NORMAL (NORMAL) Spherocytes 1+ (NORMAL) Ovalocytes 1+ (NORMAL) Result Diagram: 06/28/17 1900 06/27/171801 Assessment and Plan Disease Oriented Problem List: (1) failure to thrive, worsening cachexia (2) Parkinsonian features (3) Rheumatoid arthritis (4) Acute kidney insufficiency (5) Malnutrition Symptom Scale: (1) Malnutrition 0-10 Scale: Unable to quantify (2) Pain 0-10 Scale: 0 (denies pain currently, but has hx of rhematoid arthritis.) Pertinent Non-Medical Issues Psychosocial: have been debiliated by rhematoid arthritis for years and could not work. Spiritual:did not address this visit. Legal: health care proxy are daughters Kathy Jeong [phone] Daughter. Courtney Bajwa [phone] Daughter Ethical issues impacting care:not at the current time Important Contacts Kathy Jeong [phone] Daughter. Courtney Bajwa [phone] Daughter Prognosis 72 year old with mal- nutrition and possibly untreated parkinsonian features- Neuromuscularlly since starting sinemet, pt motor function, speech has improved as documented by attending physicians. Nutrition remains a challenge. Prognosis is guarded and remains to see how much of a rebound pt will have after continue titration of sinemet. Code Status: Full Code Plan * FULL CODE * DECISION-MAKING: Pt is alert and has capacity to make medical decisions on my visit. * SYMPTOMS: The patient is frail, cachexia, failure to thrive. Her Parkinsonian symptoms seem to improved on Sinemet, but the patient remains profoundly weak and taking very few calories orally. This patient needs encouragment to eat. Again talk to family, and ask them to encourage patient to eat. Issue was also discussed with the nurse. Today patient was able to almost finished her whole bottle of ensure for me at bedside. I asked the nurse to documment that and to encourage po intake. * pruritis- will schedule some benadryl and some lotion. Went over the list of medicine with daughter who stated pruritis has been chronic and currently besides sinement, there is no new medicine. May consider switching from percocet to norco for pain. Will follow. * GOALS: Daughters consulted with hospice nurse, but have elected to continue aggressive care for now - giving pt more time to try to improve oral intake. Spoke again with daughter and patient 06/29/2017I spoke with daughter. Pt and family goals are aggressive, and not hospice appropriate at this time. Again talk to family, and they say whenever they come in they bring food in and she eats. She ask about anastrazole, in which I said its been restarted. Talk to her about her pruritis which according to family has been a chronic issue. Try to set up time to meet face to face, but family could not come due to work, and only could come after hours. Kathy the daughter however is amenable to take phone call, and medical team may call at anytime. She is appreciative of the update and the call. * Palliative care will continue to follow the patient during this hospitalization. . Attestation To help prompt me to consider important information that might be impacting today's encounter and assessment, information from prior notes written by myself or my colleagues may have been "brought forward" into today's note. My signature on this note, however, is an attestation that I personally performed the exam, history, and/or decision-making noted today, and, unless otherwise indicated, the interactions with patient, family, and staff as well as the review of records all occurred today. I also attest that the listed assessment and stated plan reflect my best clinical judgment today based on the combination of historical information, prior notes, and today's exam/ interactions. When time spent is documented, it refers only to time spent today by the signer, or if indicated, combined time spent today by collaborating physician/nurse practitioner. Rikki Mera MD Jun 29, 2017 14:15
[2017-06-29 20:00] VITALS: BP 115/65; PULSE 107; RESP 14; TEMP 98.6; O2SAT 100
[2017-06-30] VITALS: BP 112/60; PULSE 107; RESP 14; TEMP 98.6; O2SAT 100
[2017-06-30] MEDS: LACTATED RINGER'S 1000 ML INJ 1,000 ML IV SCH ×3 (02:57→23:35)
[2017-06-30 04:00] VITALS: BP 109/67; PULSE 112; RESP 14; TEMP 98.9; O2SAT 100
[2017-06-30] MEDS: diphenhydrAMINE HCL ELIXIR 12.5 MG/5 ML CUP PO PRN ×2 (05:12→21:10)
[2017-06-30] MEDS: oxyCODONE/ACETAMINOPHEN 10 MG/325 MG TAB PO PRN ×3 (05:12→17:21)
[2017-06-30 08:00] VITALS: BP 119/56; PULSE 105; RESP 17; TEMP 97.6; O2SAT 97
[2017-06-30] MEDS: NYSTATIN SUSP 500,000 U/5 ML CUP SWISH-SWAL SCH ×4 (08:55→21:10)
[2017-06-30] MEDS: ANASTROZOLE 1 MG TAB PO SCH (08:55)
[2017-06-30] MEDS: predniSONE 10 MG TAB PO SCH (08:55)
[2017-06-30] MEDS: CARBIDOPA/LEVODOPA 25 MG/100 MG TAB PO SCH ×3 (08:55→17:17)
[2017-06-30] MEDS: CALAMINE LOTION 180 APPLIC/180 ML BTL TOPICAL SCH (08:55)
[2017-06-30] MEDS: LACTOBACILLUS ACIDOPHILUS TAB PO SCH ×2 (08:56→21:10)
[2017-06-30] MEDS: diphenhydrAMINE HCL 25 MG CAP PO SCH (08:56)
[2017-06-30] MEDS: HEPARIN SODIUM - SQ 10,000 UNITS/ML VIAL SQ SCH ×2 (08:56→21:11)
[2017-06-30] MEDS: CHOLECALCIFEROL (VIT D3) 5000 UNIT CAP PO SCH (08:56)
[2017-06-30] MEDS: COLLAGENASE OINT 30 GM TUBE TOPICAL SCH (09:00)
[2017-06-30] MEDS: VANCOMYCIN 25 MG/ML SUSP 100 ML BOTTLE PO SCH ×4 (09:02→21:11)
[2017-06-30] MEDS: SODIUM CHLORIDE 0.9% FLUSH 10 ML FLUSH IV FLUSH SCH ×2 (09:04→21:00)
[2017-06-30] MEDS: DRONABINOL 5 MG CAP PO SCH ×2 (11:00→17:17)
[2017-06-30 12:00] VITALS: BP 131/64; PULSE 129; RESP 17; TEMP 97.8; O2SAT 96
[2017-06-30 16:00] VITALS: BP 123/58; PULSE 108; RESP 17; TEMP 97.9; O2SAT 98
--- NOTE | 2017-06-30 17:01 | HHI.PR ---
Subjective Remarks Mrs. Jeong is still uninterested in food, unwilling to try solid food, and uninterested in a feeding tube. She does drink her Ensure. Objective Vitals Vital Signs Date Time Temp Pulse Resp B/P (MAP) Pulse Ox O2 Delivery O2 Flow Rate FiO2 06/30/17 16:00 97.9 108 17 123/58 (79) 98 06/30/17 12:00 97.8 129 17 131/64 (86) 96 06/30/17 08:00 97.6 105 17 119/56 (77) 97 06/30/17 04:00 98.9 112 14 109/67 (81) 100 06/30/17 00:00 98.6 107 14 112/60 (77) 100 06/29/17 20:00 98.6 107 14 115/65 (82) 100 I/O 06/29/17 06/29/17 06/29/17 06/30/17 06/30/17 06/30/17 07:00 15:00 23:00 07:00 15:00 23:00 Intake Total 50 ml 120 ml 1120 ml Output Total 700 ml 2000 ml Balance 50 ml -580 ml -880 ml Intake Oral 50 ml 120 ml 120 ml IV Total 1000 ml Output Urine Total 700 ml 2000 ml # Voids 6 Result Diagram: 06/28/17 1900 06/27/17 180 Objective Remarks GENERAL: Thin patient, generally weak, SKIN: Warm and dry. HEAD: Normocephalic. EYES: No scleral icterus. No injection or drainage. NECK: Supple, trachea midline. No JVD or lymphadenopathy. CARDIOVASCULAR: Regular rate and rhythm without murmurs, gallops, or rubs. RESPIRATORY: Breath sounds equal bilaterally. No accessory muscle use. GASTROINTESTINAL: Abdomen soft, non-tender, nondistended. NEURO: parkinson's symptoms improved following Sinemet doses BACK: Nontender without obvious deformity. No CVA tenderness. EXTREMITIES: trace edema in left ankle Procedures NONE A/P Problem List: (1) failure to thrive, worsening cachexia (2) Malnutrition ICD Code: E46 - Unspecified protein-calorie malnutrition (3) Parkinsonian features ICD Code: R25.9 - Unspecified abnormal involuntary movements (4) Rheumatoid arthritis ICD Code: M06.9 - Rheumatoid arthritis, unspecified Status: Chronic Assessment and Plan Failure to Thrive, Malnutrition Low interest in food, uninterested in feeding tube Needs new dentures, follow up outpatient, family to arrange Dietitian following for recommendations Appreciate Palliative Medicine following Continue Marinol and Reglan for appetite stimulation Daily weights appear stable Parkinson's Type Disorder Associated dysphagia resolved after starting Sinemet Continue Sinemet Left-sided contractures Improving with PT and OT CT Brain was normal Stage II sacral ulcer Wound care nurse placed wound vac today Following clinically C. difficile colitis Continue Oral Vancomycin Vitamin D deficiency Vitamin D supplementation DVT prophylaxis SCD Discharge Planning Appropriate for SNF/Rehab placement when available Poncho Barbosa MD Jun 30, 2017 17:01
--- NOTE | 2017-06-30 17:53 | HHI.HCPN ---
Reason for visit a. To assist with evaluation and management of symptoms including: failure to thrive, pruritis. b. To assist medical decision maker(s) with: better understanding of current medical conditions; weighing benefits/burdens of medical treatment options; making medical treatment decisions. Subjective/Interval History INTERVAL NOTE: Pt is alert. Pt still having the same issues with nutrition. She endorse itiching is a bit better. Family/friend interactions no family at bedside. Advance Directives Living Will: Never completed Health Care Surrogate: Never completed Durable Power of Electrolog Operator: Never completed Objective Vital Signs Date Time Temp Pulse Resp B/P (MAP) Pulse Ox O2 Delivery O2 Flow Rate FiO2 06/30/17 16:00 97.9 108 17 123/58 (79) 98 06/30/17 12:00 97.8 129 17 131/64 (86) 96 06/30/17 08:00 97.6 105 17 119/56 (77) 97 06/30/17 04:00 98.9 112 14 109/67 (81) 100 06/30/17 00:00 98.6 107 14 112/60 (77) 100 06/29/17 20:00 98.6 107 14 115/65 (82) 100 Intake & Output 06/30/17 06/30/17 07:00 19:00 Intake Total 1120 ml Output Total 2000 ml Balance -880 ml Intake Oral 120 ml IV Total 1000 ml Output Urine Total 2000 ml Physical Exam CONSTITUTIONAL/GENERAL: This is frail, weak lady, lying in the bed, lethargic SKIN: No jaundice, rashes, or lesions. Particular attention place on the back , I do not see any rash. NECK: Trachea midline. Supple, nontender. No palpable thyroid enlargement or nodularity. CARDIOVASCULAR: Regular rate and rhythm without murmurs, gallops, or rubs. No JVD. Peripheral pulses symmetric. RESPIRATORY/CHEST: Symmetric, unlabored respirations. Clear to auscultation. Breath sounds equal bilaterally. No wheezes, rales, or rhonchi. GASTROINTESTINAL: Abdomen soft, non-tender, nondistended. No hepato-splenomegaly , or palpable masses. No guarding. Bowel sounds present. MUSCULOSKELETAL: Extremities without clubbing, cyanosis, or edema. No joint tenderness or effusion noted. . No mottling or clubbing. Moves all extremity but weak. NEUROLOGICAL: Weak, alert, follow commands. PSYCHIATRIC: No obvious anxiety/depression. no apparent hallucinations or other psychotic thought process. . Diagnostic Tests Laboratory Laboratory Tests Test 06/27/17 18:02 06/28/17 19:00 White Blood Count 10.4 TH/MM3 (4.0-11.0) 9.1 TH/MM3 (4.0-11.0) Red Blood Count 2.71 MIL/MM3 (4.00-5.30) 2.97 MIL/MM3 (4.00-5.30) Hemoglobin 7.9 GM/DL (11.6-15.3) 8.5 GM/DL (11.6-15.3) Hematocrit 23.8 % (35.0-46.0) 26.0 % (35.0-46.0) Mean Corpuscular Volume 87.6 FL (80.0-100.0) 87.6 FL (80.0-100.0) Mean Corpuscular Hemoglobin 29.1 PG (27.0-34.0) 28.6 PG (27.0-34.0) Mean Corpuscular Hemoglobin Concent 33.2 % (32.0-36.0) 32.6 % (32.0-36.0) Red Cell Distribution Width 17.6 % (11.6-17.2) 17.6 % (11.6-17.2) Platelet Count 191 TH/MM3 (150-450) 202 TH/MM3 (150-450) Mean Platelet Volume 8.4 FL (7.0-11.0) 8.3 FL (7.0-11.0) Neutrophils (%) (Auto) 84.9 % (16.0-70.0) 84.4 % (16.0-70.0) Lymphocytes (%) (Auto) 6.5 % (9.0-44.0) 7.4 % (9.0-44.0) Monocytes (%) (Auto) 7.3 % (0.0-8.0) 7.0 % (0.0-8.0) Eosinophils (%) (Auto) 0.5 % (0.0-4.0) 0.5 % (0.0-4.0) Basophils (%) (Auto) 0.8 % (0.0-2.0) 0.7 % (0.0-2.0) Neutrophils # (Auto) 8.8 TH/MM3 (1.8-7.7) 7.7 TH/MM3 (1.8-7.7) Lymphocytes # (Auto) 0.7 TH/MM3 (1.0-4.8) 0.7 TH/MM3 (1.0-4.8) Monocytes # (Auto) 0.8 TH/MM3 (0-0.9) 0.6 TH/MM3 (0-0.9) Eosinophils # (Auto) 0.1 TH/MM3 (0-0.4) 0.0 TH/MM3 (0-0.4) Basophils # (Auto) 0.1 TH/MM3 (0-0.2) 0.1 TH/MM3 (0-0.2) CBC Comment DIFF FINAL AUTO DIFF Differential Comment FINAL DIFF MANUAL Blood Urea Nitrogen 5 MG/DL (7-18) Creatinine 0.55 MG/DL (0.50-1.00) Random Glucose 88 MG/DL (74-106) Calcium Level 8.6 MG/DL (8.5-10.1) Sodium Level 140 MEQ/L (136-145) Potassium Level 3.5 MEQ/L (3.5-5.1) Chloride Level 105 MEQ/L (98-107) Carbon Dioxide Level 29.8 MEQ/L (21.0-32.0) Anion Gap 5 MEQ/L (5-15) Estimat Glomerular Filtration Rate 132 ML/MIN (>89) Troponin I 0.02 NG/ML (0.02-0.05) Differential Total Cells Counted 100 Neutrophils % (Manual) 85 % (16-70) Band Neutrophils % 3 % (0-6) Lymphocytes % 2 % (9-44) Monocytes % 6 % (0-8) Eosinophils % 1 % (0-4) Neutrophils # (Manual) 8.3 TH/MM3 (1.8-7.7) Metamyelocytes 3 % (0-1) Nucleated Red Blood Cells 1 /100 WBC (0-0) Platelet Estimate NORMAL (NORMAL) Platelet Morphology Comment NORMAL (NORMAL) Spherocytes 1+ (NORMAL) Ovalocytes 1+ (NORMAL) Result Diagram: 06/28/17 1900 06/27/17 1332 Assessment and Plan Disease Oriented Problem List: (1) failure to thrive, worsening cachexia (2) Parkinsonian features (3) Rheumatoid arthritis (4) Acute kidney insufficiency (5) Malnutrition Symptom Scale: (1) Malnutrition 0-10 Scale: Unable to quantify (2) Pain 0-10 Scale: 0 (denies pain currently, but has hx of rhematoid arthritis.) Pertinent Non-Medical Issues Psychosocial: have been debiliated by rhematoid arthritis for years and could not work. Spiritual:did not address this visit. Legal: health care proxy are daughters Kathy Jeong [phone] Daughter. Courtney Bajwa [phone] Daughter Ethical issues impacting care:not at the current time Important Contacts Kathy Jeong [phone] Daughter. Courtney Bajwa [phone] Daughter Prognosis 72 year old with mal- nutrition and possibly untreated parkinsonian features- Neuromuscularlly since starting sinemet, pt motor function, speech has improved as documented by attending physicians. Nutrition remains a challenge. Prognosis is guarded and remains to see how much of a rebound pt will have after continue titration of sinemet. Code Status: Full Code Plan * FULL CODE * DECISION-MAKING: Pt is alert and has capacity to make medical decisions on my visit. * SYMPTOMS: The patient is frail, cachexia, failure to thrive. Her Parkinsonian symptoms seem to improved on Sinemet, but the patient remains profoundly weak and taking very few calories orally. This patient needs encouragment to eat. Again talk to family, and ask them to encourage patient to eat. Issue was also discussed with the nurse. Today patient was able to almost finished her whole bottle of ensure for me at bedside. I asked the nurse to documment that and to encourage po intake. * pruritis- will schedule some benadryl and some lotion. Went over the list of medicine with daughter who stated pruritis has been chronic and currently besides sinement, there is no new medicine. May consider switching from percocet to norco for pain. Will follow. * GOALS: Daughters consulted with hospice nurse, but have elected to continue aggressive care for now - giving pt more time to try to improve oral intake. Spoke again with daughter and patient 06/29/2017I spoke with daughter. Pt and family goals are aggressive, and not hospice appropriate at this time. Again talk to family, and they say whenever they come in they bring food in and she eats. She ask about anastrazole, in which I said its been restarted. Talk to her about her pruritis which according to family has been a chronic issue. Try to set up time to meet face to face, but family could not come due to work, and only could come after hours. Kathy the daughter however is amenable to take phone call, and medical team may call at anytime. She is appreciative of the update and the call. * Palliative care will continue to follow the patient during this hospitalization. . Rikki Mera MD Jun 30, 2017 17:53
[2017-06-30 20:00] VITALS: BP 97/49; PULSE 109; RESP 20; TEMP 98.3; O2SAT 100
[2017-07-01] VITALS: BP 118/58; PULSE 104; RESP 18; TEMP 98.6; O2SAT 100
[2017-07-01 04:00] VITALS: BP 115/75; PULSE 111; RESP 20; TEMP 99.3; O2SAT 98
[2017-07-01] MEDS: diphenhydrAMINE HCL ELIXIR 12.5 MG/5 ML CUP PO PRN (05:37)
[2017-07-01 08:00] VITALS: BP 122/57; PULSE 112; RESP 19; TEMP 98.1; O2SAT 97
[2017-07-01] MEDS: CHOLECALCIFEROL (VIT D3) 5000 UNIT CAP PO SCH (08:48)
[2017-07-01] MEDS: COLLAGENASE OINT 30 GM TUBE TOPICAL SCH (08:48)
[2017-07-01] MEDS: diphenhydrAMINE HCL 25 MG CAP PO SCH (08:49)
[2017-07-01] MEDS: LACTOBACILLUS ACIDOPHILUS TAB PO SCH (08:49)
[2017-07-01] MEDS: NYSTATIN SUSP 500,000 U/5 ML CUP SWISH-SWAL SCH ×3 (08:49→16:40)
[2017-07-01] MEDS: CARBIDOPA/LEVODOPA 25 MG/100 MG TAB PO SCH ×3 (08:49→16:40)
[2017-07-01] MEDS: predniSONE 10 MG TAB PO SCH (08:49)
[2017-07-01] MEDS: ANASTROZOLE 1 MG TAB PO SCH (08:49)
[2017-07-01] MEDS: SODIUM CHLORIDE 0.9% FLUSH 10 ML FLUSH IV FLUSH SCH (08:50)
[2017-07-01] MEDS: VANCOMYCIN 25 MG/ML SUSP 100 ML BOTTLE PO SCH ×3 (08:51→16:40)
[2017-07-01] MEDS: HEPARIN SODIUM - SQ 10,000 UNITS/ML VIAL SQ SCH (08:52)
[2017-07-01] MEDS: CALAMINE LOTION 180 APPLIC/180 ML BTL TOPICAL SCH (08:55)
[2017-07-01] MEDS: oxyCODONE/ACETAMINOPHEN 10 MG/325 MG TAB PO PRN (08:59)
[2017-07-01] MEDS: LACTATED RINGER'S 1000 ML INJ 1,000 ML IV SCH (08:59)
[2017-07-01] MEDS ORDERED: CHOL5000 PO (10:46)
[2017-07-01] MEDS ORDERED: VANC500I3 PO (10:46)
[2017-07-01] MEDS ORDERED: Carbidopa-Levodopa 25-100 Mg PO (10:46)
[2017-07-01] MEDS ORDERED: Nystatin Liq SWISH-SWAL (10:46)
[2017-07-01] MEDS ORDERED: OXYC1TAB63 PO (10:46)
[2017-07-01] MEDS ORDERED: COLL30T TOPICAL (10:46)
[2017-07-01] MEDS ORDERED: DRON5CAP PO (10:46)
--- NOTE | 2017-07-01 11:36 | HHI.DS ---
Discharge Summary Admission Date Jun 11, 2017 at 16:53 Discharge Date: Jul 01, 2017 Admitting Diagnosis ACUTE RENAL FAILURE/SEVERE DEHYDRATION (1) failure to thrive, worsening cachexia (2) Malnutrition ICD Code: E46 - Unspecified protein-calorie malnutrition (3) Parkinsonian features ICD Code: R25.9 - Unspecified abnormal involuntary movements (4) Rheumatoid arthritis ICD Code: M06.9 - Rheumatoid arthritis, unspecified Status: Chronic Procedures NONE Brief History - From Admission 72-year-old female with history of her heart arthritis, hypertension, who presents with gradually worsening nausea, nonbloody vomiting over the past few weeks. Unspecified weight loss over the past few weeks, with progression of weakness to where she cannot even stand up. Family also notes that urine has become dark swelling. She has been tried on what sounds to be Marinol without improvement in appetite. Recently completed treatment for C. difficile diarrhea which resolved, however no bowel movements in the past 2 weeks. CBC/BMP: 06/28/17 1900 06/27/17 1802 Significant Findings Laboratory Tests Test 06/28/17 19:00 Red Blood Count 2.97 MIL/MM3 (4.00-5.30) Hemoglobin 8.5 GM/DL (11.6-15.3) Hematocrit 26.0 % (35.0-46.0) Red Cell Distribution Width 17.6 % (11.6-17.2) Neutrophils (%) (Auto) 84.4 % (16.0-70.0) Lymphocytes (%) (Auto) 7.4 % (9.0-44.0) Lymphocytes # (Auto) 0.7 TH/MM3 (1.0-4.8) Neutrophils % (Manual) 85 % (16-70) Lymphocytes % 2 % (9-44) Neutrophils # (Manual) 8.3 TH/MM3 (1.8-7.7) Metamyelocytes 3 % (0-1) Nucleated Red Blood Cells 1 /100 WBC (0-0) Spherocytes 1+ (NORMAL) Ovalocytes 1+ (NORMAL) PE at Discharge GENERAL: Thin patient, generally weak, SKIN: Warm and dry. HEAD: Normocephalic. EYES: No scleral icterus. No injection or drainage. NECK: Supple, trachea midline. No JVD or lymphadenopathy. CARDIOVASCULAR: Regular rate and rhythm without murmurs, gallops, or rubs. RESPIRATORY: Breath sounds equal bilaterally. No accessory muscle use. GASTROINTESTINAL: Abdomen soft, non-tender, nondistended. NEURO: parkinson's symptoms improved following Sinemet doses BACK: Nontender without obvious deformity. No CVA tenderness. EXTREMITIES: trace edema in left ankle Hospital Course 72F with h/o rheumatoid arthritis who presents after a 1-2 month decline in her functionality at home that resulted in admission to the senior care. She claims it was related to stopping "Velgance", an alleged medication she took for arthritis. When she stopped that she stopped being able to move and became very weak. In any case, she presented in a rather catatonic state to us 2 weeks ago, dysphagia, dehydrated, ARF, cathexic. She was started in Sinemet for suspect parkinsonism, and responded well, slowly regained the ability to swallow, normal speech returned, and she overall looked much improved. She has , however, not been interested in solid food. She CAN eat solid food, but she declines claiming she just doesn't have an appetite. She's been treated here for UTI, for C. Diff, etc. But as far as hospitalization, she has reached maximum improvement and the rest of her improvement will take time, rehabilitation, and FOOD. I will recommend daily weights, I&O, and assistance with meals while she is in rehab. Her family has been encouraged to visit on a regular basis, daily would be optimal, and bring her her favorite foods. Pt Condition on Discharge: Fair Discharge Disposition: Discharge to SNF Discharge Time: <= 30 minutes Discharge Instructions DIET: Follow Instructions for: As Tolerated, No Restrictions Speech Therapy-Diet Recommends: Pureed Activities you can perform: Weight Bearing as Poncho Rivas MD Jul 01, 2017 11:36
[2017-07-01 12:00] VITALS: BP 127/62; PULSE 109; RESP 20; TEMP 97.7; O2SAT 97
[2017-07-01] MEDS: DRONABINOL 5 MG CAP PO SCH ×2 (12:23→16:40)
== END 2017-07-01 17:34 | DRG 682 ==
LOC: NEPC 11:44 → OBSVTOIN 16:53 → NEDA 16:53 → UNDOADMOB 16:57 → NEDA 16:57 → N07A 18:49 → NEDA 18:49
PROVIDERS: ADMIT Family Medicine; ATTEND Family Medicine
PROC: 0T9B70Z Drainage of Bladder with Drainage Device, Via Natural or Artificial Opening (ICD-10-PCS; principal; 2017-06-11)
DX: N17.9 Acute kidney failure, unspecified (principal); E41 Nutritional marasmus; E87.4 Mixed disorder of acid-base balance; E87.0 Hyperosmolality and hypernatremia; L89.153 Pressure ulcer of sacral region, stage 3; G20 Parkinson's disease; F03.90 Unspecified dementia, unspecified severity, without behavioral disturbance, psychotic disturbance, mood disturbance, and anxiety; E83.42 Hypomagnesemia; R13.10 Dysphagia, unspecified; N39.0 Urinary tract infection, site not specified; M06.9 Rheumatoid arthritis, unspecified; E86.0 Dehydration; R62.7 Adult failure to thrive; I12.9 Hypertensive chronic kidney disease with stage 1 through stage 4 chronic kidney disease, or unspecified chronic kidney disease; N18.3 Chronic kidney disease, stage 3 (moderate); E87.6 Hypokalemia; E78.00 Pure hypercholesterolemia, unspecified; Z85.3 Personal history of malignant neoplasm of breast; Z87.440 Personal history of urinary (tract) infections; Z90.12 Acquired absence of left breast and nipple; K59.00 Constipation, unspecified; E55.9 Vitamin D deficiency, unspecified; Z79.52 Long term (current) use of systemic steroids; Z51.5 Encounter for palliative care; F32.9 Major depressive disorder, single episode, unspecified; M19.90 Unspecified osteoarthritis, unspecified site; M24.50 Contracture, unspecified joint; B96.20 Unspecified Escherichia coli [E. coli] as the cause of diseases classified elsewhere; B96.1 Klebsiella pneumoniae [K. pneumoniae] as the cause of diseases classified elsewhere
CPT/HCPCS: 70450; 74018; 76775; 76937; 80048; 80053; 81001; 82306; 82550; 82570; 82607; 83036; 83605; 83690; 83735; 83970; 84100; 84156; 84300; 84439; 84443; 84484; 85007; 85025; 85027; 85610; 85730; 86038; 86160; 86592; 86803; 87040; 87077; 87086; 87186; 87205; 87340; 87493; 93005; G8987-GP; G8988-GP; G8996-GN; G8997-GN; G8998-GN; J0696; J1644; J1720; J2405; J3475; J3480; J7030; J7040; J7050; J7070; J7120; J7512; Q0167